=== PATIENT | female | born 1945 | race Caucasian/White ===

== ENCOUNTER 2016-09-15 16:16 | Emergency (ER) | payer OTHER ==
--- NOTE | 2016-09-15 16:52 | PROVIDER DOCUMENTATION ---
HPI-Head Injury - General Chief Complaint: Fall Stated Complaint: FALL Time Seen by Provider: 09/15/16 16:36 Source: patient Allergies/Adverse Reactions: Patient Allergies Allergy/AdvReac Type Severity Reaction Status Date / Time morphine Allergy Severe blind Verified 09/15/16 16:48 buprenorphine HCl * Allergy Intermediate VOMITING Verified 09/15/16 16:48 [From Buprenex] codeine [Codeine] Allergy Intermediate ITCHING Verified 09/15/16 16:48 hydrocodone bitartrate * Allergy Intermediate ITCHING Verified 09/15/16 16:48 [From Lortab] acetaminophen Allergy Mild ITCHING Verified 09/15/16 16:48 [From Lorcet (propoxyphene)] ciprofloxacin [From Cipro] Allergy Mild VOMITING Verified 09/15/16 16:48 ciprofloxacin HCl * Allergy Mild VOMITING Verified 09/15/16 16:48 [From Cipro] metronidazole Allergy Mild vomitng Verified 09/15/16 16:48 propoxyphene HCl * Allergy Mild ITCHING Verified 09/15/16 16:48 [From Lorcet (propoxyphene)] clonazepam Allergy ITCHING Verified 09/15/16 16:48 Home Medications: Home Medication List Medication Instructions Recorded Confirmed Last Taken Type Paroxetine [Paxil] 40 mg PO DAILY 04/15/12 09/15/16 09/14/16 12:00 History Pantoprazole [Protonix] 40 mg PO DAILY@0700 12/01/12 09/15/16 1 Day Ago History Iron,Carbonyl/Vit C/Vit B12/FA 1 tab PO DAILY 07/25/15 09/15/16 1 Day Ago History [Iron 100 Plus Tablet] Lactulose 30 ml PO BID #30 udc 02/13/16 09/15/16 09/14/16 19:00 Rx Furosemide [Lasix] 40 mg PO DAILY 04/14/16 09/15/16 Unknown History Ketorolac [Toradol] 10 mg PO TID PRN PRN 04/14/16 09/15/16 Unknown History Nadolol 20 mg PO DAILY 04/14/16 09/15/16 Unknown History Ondansetron HCl [Zofran] 4 mg PO Q6H PRN PRN 04/14/16 09/15/16 Unknown History Spironolactone [Aldactone] 100 mg PO DAILY 09/09/15/16 09/15/16 12:00 History Tramadol HCl [Ultram] 1 - 2 tab PO Q6H PRN PRN 04/14/16 09/15/16 09/15/16 12:00 History Tramadol [Ultram] 50 mg PO Q8HR #20 tablet 09/15/16 Unknown Rx - History of Present Illness-Head Injury Nature of Presenting Problem: 71 yo WF fell/tripped falling in the street striking her nose and chin. She has some neck and chest pain now. Other injuries associated with incident:: reports: head, neck, mouth, chest Onset/Duration: reports: 1-3 hours ago Timing: reports: improving Method of Injury: reports: fell Any recent trauma/injury?: reports: none Loss of Consciousness: no loss of consciousness Modifying Factors: improves with: nothing Injury Associated Symptoms: reports: back/neck pain, chest pain Locality of Occurance: Home Similar Symptoms Previously?: Yes Recently seen or treated by another doctor?: No Review of Systems - Adult - REVIEW OF SYSTEMS - ADULT Constitutional: reports: no symptoms reported Eyes: reports: no symptoms reported. denies: blurred vision, double vision Ears, Nose, Mouth & Throat: reports: no symptoms reported, mouth/dental pain ( burning, after fall copious blood in mouth but that is now clear) Cardiovascular: reports: no symptoms reported Respiratory: reports: no symptoms reported Gastrointestinal: reports: no symptoms reported Genitourinary: reports: no symptoms reported Musculoskeletal: reports: no symptoms reported Integumentary: reports: no symptoms reported Neurological: reports: no symptoms reported Psychiatric: reports: no symptoms reported Endocrine: reports: no symptoms reported Hematologic/Lymphatic: reports: no symptoms reported Allergic/Immunologic: reports: no symptoms reported All Other Systems: Reviewed and Negative Past History - Adult - PAST MEDICAL HISTORY-ADULT Review of Records: reports: Old Records Reviewed, Nursing Assessment Review, Medications Reviewed, Social history reviewed & non-contributory. Major Childhood Illnesses: reports: denies history Cardiovascular: reports: HTN Gastrointestinal: reports: GERD, liver disease (cirrhosis), other (esophgeal varices) Genitourinary: reports: other (IGA) Musculoskeletal: reports: arthritis, fibromyalgia Neurological: reports: denies history Psychiatric: reports: denies history Endocrine/Immune: reports: denies history - PRIOR SURGERIES/PROCEDURES Surgical/Procedure History: reports: cholecystectomy, hysterectomy, BTL, orthopedic (extremity) - IMMUNIZATION STATUS Childhood Immunizations: See Nurse Assessment Flu Vaccine: See Nurse Assessment - FAMILY HISTORY Family History: reviewed, not pertinent - SOCIAL HISTORY Smoking: non-smoker Substance Use: none/never Alcohol Use Frequency: never Living Situation: alone Physical Exam- Neurological - Physical Exam-Neuro Initial Vital Signs Reviewed: Yes General Appearance: appears well, alert, no apparent distress Eye Exam: bilateral eye: PERRL, EOMI HENMT: normocephalic/atraumatic, moist mucous membranes, normal ENT inspection, other (I do not see a laceration in lower gums or lips) Head Injury: ecchymosis (chin) Neck: full range of motion, normal inspection, tender midline (C7) Respiratory: lungs clear, normal breath sounds, no pleuratic chest pain, no respiratory distress, no accessory muscle use Cardiovascular: normal peripheral pulses, regular rate, rhythm, no edema Abdominal Exam: non tender, soft Extremity: non-tender, normal inspection, no pedal edema, no calf tenderness shipping agent Exam: normal hearing, normal speech, PERRL Coordination/Gait: normal finger to nose Motor/Sensory: no motor deficit, no sensory deficit Neurologic: shipping agent II-XII nml as tested Integumentary: ecchymosis (bruise on chin, small abrasions on R 4,5 knuckles) Psych/Mental Status: normal mood/affect, normal thought content, normal thought process, oriented x 3 - Glascow Coma Scale Total Glascow Score: 15 Progress - CT/MRI 1 CT Study: Cervical Spine Impression: Normal MRI Study: Head Impression: Normal Departure - Departure Time of Disposition Order: 17:38 DIAGNOSIS: Fall from ground level Contusion of chin Qualifiers: Encounter type: initial encounter Qualified Code(s): S00.83XA - Contusion of other part of head, initial encounter Contusion, nose Qualifiers: Encounter type: initial encounter Qualified Code(s): S00.33XA - Contusion of nose, initial encounter Disposition: HOME 01 Certified Medical Emergency: Urgent Condition: Stable Additional Instructions: See PCP about lift chair. Must use walker at all times Prescriptions: Tramadol [Ultram] 50 mg PO Q8HR #20 tablet
[2016-09-15 17:54] VITALS: BP 126/54
[2016-09-15] MEDS ORDERED: NEOSPORIN OINTMENT PACKET ONE (18:00)
--- NOTE | 2016-09-15 18:16 | Diag Imaging Result Document ---
PROCEDURE NAME: HEAD/C-SPINE W/O CONTRAST - 09/15/2016 CT OF THE HEAD WITHOUT CONTRAST: FINDINGS: There is mild generalized cerebral atrophy. There is subcortical white matter lucency, particularly in the right parietal lobe. This was also apparently present on 04/14/2016. There are calcifications in the internal carotid arteries bilaterally. There is no evidence of acute bony disease. The visualized paranasal sinuses are clear. IMPRESSION: Chronic microvascular changes and atrophy. No evidence of acute disease. CT OF THE CERVICAL SPINE: FINDINGS: There is no evidence of acute fracture or subluxation. No prevertebral soft tissue swelling is present. There is an ossified calcification present posterior to the spinous process of C4. This is possibly due to previous trauma. There is narrowing of the C6-7 disc space with mild osteophyte formation posteriorly. IMPRESSION: Degenerative and chronic posttraumatic changes. No evidence of acute disease.
--- NOTE | 2016-09-16 09:23 | Diag Imaging Result Document ---
PROCEDURE NAME: CHEST-2 VIEWS - 09/15/2016 TWO VIEWS OF THE CHEST: FINDINGS: There is some atelectasis in the left costophrenic angle. Otherwise, the lungs are clear and the heart and pulmonary vascularity are within normal limits. IMPRESSION: Minimal atelectasis.
== END 2016-09-15 18:04 | disposition home or self-care (01) ==
LOC: ED 16:16
DX: S00.83XA Contusion of other part of head, initial encounter (principal); S00.33XA Contusion of nose, initial encounter; S60.414A Abrasion of right ring finger, initial encounter; S60.416A Abrasion of right little finger, initial encounter; R07.9 Chest pain, unspecified; M54.2 Cervicalgia; I10 Essential (primary) hypertension; K21.9 Gastro-esophageal reflux disease without esophagitis; Z79.899 Other long term (current) drug therapy; K74.60 Unspecified cirrhosis of liver; I85.00 Esophageal varices without bleeding; M19.90 Unspecified osteoarthritis, unspecified site; M79.7 Fibromyalgia; W01.0XXA Fall on same level from slipping, tripping and stumbling without subsequent striking against object, initial encounter
CPT/HCPCS: 70450; 71020; 72125

== ENCOUNTER 2018-12-01 09:48 | Inpatient (IN) ==
--- NOTE | 2018-12-01 10:25 | Diag Imaging Result Doc PS360 ---
EXAM: CHEST-1 VIEW INDICATION: POSSIBLE SEPSIS TECHNIQUE: One view COMPARISON: 11/22/2018 FINDINGS: Inspiration is suboptimal. There is minimal subsegmental atelectasis at the right lung base. No discrete airspace consolidation is appreciated. The lungs are grossly clear. There is no discrete pleural fluid collection or pneumothorax. The cardiomediastinal silhouette and central vasculature are grossly unremarkable. IMPRESSION: Mild bibasilar subsegmental atelectasis. No definite acute pathology, otherwise, by plain radiograph. Electronically signed by Td Garcia 12/01/2018 10:23 AM
[2018-12-01 10:43] LABS: INR 1.81; PROTIME 22.3 Seconds (11.0-16.0)
[2018-12-01 10:44] LABS: PTT 43.4 Seconds (22.3-41.8)
[2018-12-01 10:49] LABS: BASO# 0.04 X1000 (0.0-0.2); BASO% 0.4 % (0.0-0.8); EOS# 0.07 X1000 (0.0-0.7); EOS% 0.7 % (0.0-10.0); HEMATOCRIT 32.5 % (37.0-47.0); HEMOGLOBIN 10.9 g/dL (12.0-16.0); IMM GRAN# 0.03 X1000 (0.0-0.04); IMM GRAN% 0.3 % (0.0-0.5); LYMPH# 1.37 X1000 (1.2-3.4); LYMPH% 14.4 % (20.5-51.1); MCH 32.2 PG (27-31); MCHC 33.5 g/dL (33-37); MCV 96.2 FL (81-99); MONO# 1.93 X1000 (0.11-0.59); MONO% 20.3 % (1.7-9.3); MPV 10.8 FL (7.4-10.4); NEUT# 6.07 X1000 (1.4-6.5); NEUT% 63.9 % (42.2-75.2); PLT 173 X1000 (130-400); RBC 3.38 XMIL (4.2-5.4); RDW 15.5 % (11.5-14.5); WBC 9.51 X1000 (4.8-10.8)
[2018-12-01 10:57] LABS: ALB/GLOB RATIO 0.6; ALBUMIN 2.6 g/dL (3.5-5.0); CALCIUM 8.5 mg/dL (8.8-10.2); POTASSIUM 3.6 mmol/L (3.5-5.1); TOTAL BILIRUBIN 2.49 mg/dL (0.20-1.00); TOTAL PROTEIN 6.9 g/dL (6.3-8.3)
[2018-12-01 11:44] LABS: URINE SOURCE CATH
[2018-12-01 11:52] LABS: BILIRUBIN URINE NEGATIVE (NEGATIVE); BLOOD URINE NEGATIVE (NEGATIVE); COLOR YELLOW; GLUCOSE URINE NEGATIVE (NEGATIVE); KETONE URINE NEGATIVE (NEGATIVE); LEUKOCYTES URINE NEGATIVE (NEGATIVE); NITRITE URINE NEGATIVE (NEGATIVE); PH URINE 5.5; PROTEIN URINE NEGATIVE (NEGATIVE); SP GRAVITY URINE 1.013; TURBIDITY URINE CLEAR (CLEAR); UROBILINOGEN URINE 6 mg/dL (NORMAL)
[2018-12-01 11:54] LABS: UR EPITHELIAL CELLS <10 /HPF (<10); URINE BACTERIA NEGATIVE /HPF; URINE RBC <10 /HPF (<10); URINE WBC <10 /HPF (<10)
[2018-12-01 12:11] LABS: URINE CASTS NONE SEEN
[2018-12-01] MEDS ORDERED: XYLOCAINE-MPF 1% INJ ONE ×2 (13:58→16:35)
[2018-12-01 16:10] LABS: INR 1.73; PROTIME 21.5 Seconds (11.0-16.0)
[2018-12-01] MEDS ORDERED: ZOSYN 3.375 GM in NS 50 ML IV ONE (17:27)
--- NOTE | 2018-12-01 18:01 | PROVIDER DOCUMENTATION ---
This chart was entered by Blanca Salas Scribe, acting as scribe for Kevon Ortez DO. HPI-Abdominal Pain/GI Problem - General Chief Complaint: Post Op Complaint Stated Complaint: RT SIDE PAIN Time Seen by Provider: 12/01/18 09:56 Source: patient Allergies/Adverse Reactions: Patient Allergies Allergy/AdvReac Type Severity Reaction Status Date / Time morphine Allergy Severe blind Verified 11/22/18 17:02 buprenorphine HCl * Allergy Intermediate VOMITING Verified 11/22/18 17:02 [From Buprenex] codeine [Codeine] Allergy Intermediate ITCHING Verified 11/22/18 17:02 hydrocodone bitartrate * Allergy Intermediate ITCHING Verified 11/22/18 17:02 [From Lortab] ciprofloxacin [From Cipro] Allergy Mild VOMITING Verified 11/22/18 17:02 ciprofloxacin HCl * Allergy Mild VOMITING Verified 11/22/18 17:02 [From Cipro] metronidazole Allergy Mild vomitng Verified 11/22/18 17:02 propoxyphene HCl * Allergy Mild ITCHING Verified 11/22/18 17:02 [From Lorcet (propoxyphene)] clonazepam Allergy ITCHING Verified 11/22/18 17:02 Home Medications: Home Medication List Medication Instructions Recorded Confirmed Last Taken Type Furosemide [Lasix] 40 mg PO DAILY 04/14/16 11/22/18 11/22/18 History BENAZEpril [Lotensin] 20 mg PO DAILY 12/11/16 11/22/18 11/21/18 History Hydrochlorothiazide 25 mg PO DAILY 12/11/16 11/22/18 11/22/18 History Pantoprazole [Protonix] 40 mg PO DAILY@0700 12/11/16 11/22/18 11/22/18 History Clonazepam 1 tab PO PRN PRN 11/22/18 11/22/18 Unknown History Paroxetine HCl 1 tab PO DAILY 11/22/18 11/22/18 11/22/18 History - History of Present Illness-ABD Nature of Presenting Problems: 73 y/o female presents to ED with SOB and RUQ onset 9 days ago. Pt reports she had paracentesis in ED 9 days ago. Pt is alert and oriented. Abdominal Pain Onset Location: reports: RUQ Pain Radiation: reports: no radiation Quality of Pain: reports: aching Severity in ED: reports: mild Onset/Duration: reports: other (9 days ago) Timing: reports: still present Activities at Onset: reports: none Exposure to sick contacts?: No Modifying Factors: improves with: nothing Associated Symptoms: reports: shortness of breath, other (RUQ pain) Last BM: unsure Dark Stools Present?: reports: none noticed Rectal Bleeding: reports: none Rectal Pain: reports: none Similar Symptoms Previously?: No Recently seen or treated by another doctor?: Yes (ED 9 days ago for paracentesis) Review of Systems - Adult - REVIEW OF SYSTEMS - ADULT Constitutional: denies: chills, fever Eyes: reports: no symptoms reported Ears, Nose, Mouth & Throat: reports: no symptoms reported Cardiovascular: denies: chest pain, palpitations Respiratory: reports: shortness of breath. denies: cough Gastrointestinal: reports: abdominal pain. denies: diarrhea, nausea, vomiting Genitourinary: reports: no symptoms reported Musculoskeletal: denies: back pain, joint pain Integumentary: reports: no symptoms reported Neurological: denies: dizziness/vertigo, seizure Psychiatric: reports: no symptoms reported Endocrine: reports: no symptoms reported Hematologic/Lymphatic: reports: no symptoms reported Allergic/Immunologic: reports: no symptoms reported All Other Systems: Reviewed and Negative Past History - Adult - PAST MEDICAL HISTORY-ADULT Review of Records: reports: Old Records Reviewed, Nursing Assessment Review, Medications Reviewed Major Childhood Illnesses: reports: denies history Cardiovascular: reports: HTN Respiratory: reports: denies history Gastrointestinal: reports: diverticulosis, GERD, liver disease (cirrhosis), other (esophgeal varices) Obstetrical/Gynecological: reports: denies history Genitourinary: reports: kidney disease, other (IGA) Musculoskeletal: reports: arthritis, fibromyalgia Neurological: reports: denies history Psychiatric: reports: denies history Endocrine/Immune: reports: denies history Other Conditions: reports: denies history - PRIOR SURGERIES/PROCEDURES Surgical/Procedure History: reports: appendectomy, cholecystectomy, hysterectomy , BTL, orthopedic (extremity) (L shoulder), back/neck (back x2), other (lithrotripsy) - IMMUNIZATION STATUS Childhood Immunizations: See Nurse Assessment Flu Vaccine: See Nurse Assessment - FAMILY HISTORY Family History: reviewed, not pertinent - SOCIAL HISTORY Smoking: quit greater than 1 year Substance Use: none/never Alcohol Use Frequency: never Living Situation: family Physical Exam-General - PHYSICAL EXAM-ADULT Initial Vital Signs Reviewed: Yes - CONSTITUTIONAL General Appearance: appears well, alert, no apparent distress - EYES Eyes: PERRL/EOMI, pink conjunctivae - HEAD, EARS, NOSE, MOUTH & THROAT HENMT: normocephalic/atraumatic, moist mucous membranes, normal ENT inspection, other (dentures) - NECK Neck: non-tender, full range of motion - RESPIRATORY Respiratory: lungs clear, normal breath sounds, other (chest wall tenderness at L sternal border). negative: chest non-tender - CARDIOVASCULAR Cardiovascular: normal peripheral pulses, regular rate, rhythm - GASTROINTESTINAL (ABDOMEN) Abdominal Exam: normal bowel sounds, soft, tenderness (mild diffuse tenderness), other (scar to RUQ) - MUSCULOSKELETAL Back Exam: normal inspection, no CVA tenderness Extremity: normal range of motion, non-tender, normal gait - SKIN Integumentary: normal color, warm/dry - NEUROLOGIC Neurologic: grossly normal - PSYCHIATRIC Psych/Mental Status: normal mood/affect, normal thought content, normal thought process Progress - PLAN OF CARE/RESULTS Progress/Plan/Lab Results: Vital Signs - 8 hr 12/01/18 09:50 Temperature 98.3 F Pulse Rate 95 H Respiratory Rate 22 Blood Pressure 106/66 O2 Sat by Pulse Oximetry 98 Orders Category Date Time Status Cardiac Monitoring DIRECTED Care 12/01/18 10:00 Active IV Insertion ORDERED Care 12/01/18 10:00 Active Notify MD of + Sepsis Screen NOW Care 12/01/18 10:00 Active Notify Physician As Ordered Care 12/01/18 10:00 Active CHEST-1 VIEW [RAD] Stat Exams 12/01/18 10:00 Ordered BLOOD CULTURE [BLDCUL] Stat Lab 12/01/18 10:00 Uncollected CBC WITH DIFF [HEME] Stat Lab 12/01/18 10:00 Uncollected CK PROFILE [SP CHEM] Stat Lab 12/01/18 10:00 Uncollected COMPREHENSIVE METABOLIC PANEL [CHEM] Stat Lab 12/01/18 10:00 Uncollected LACTATE, PLASMA [CHEM] Q3H Lab 12/01/18 10:00 Uncollected LACTATE, PLASMA [CHEM] Q3H Lab 12/01/18 13:00 Uncollected LACTATE, PLASMA [CHEM] Q3H Lab 12/01/18 16:00 Uncollected PROTIME WITH INR [COAG] Stat Lab 12/01/18 10:00 Uncollected PTT [COAG] Stat Lab 12/01/18 10:00 Uncollected TROPONIN T Stat Lab 12/01/18 10:00 Uncollected URINALYSIS W/POSS RFLX CULT [URINALYSIS] Stat Lab 12/01/18 10:00 Uncollected Oxygen Device Stat Oth 12/01/18 10:00 Active Laboratory Tests 12/01/18 12/01/18 12/01/18 10:21 10:21 10:21 WBC 9.51 RBC 3.38 L Hgb 10.9 L Hct 32.5 L MCV 96.2 MCH 32.2 H MCHC 33.5 RDW Std Deviation 15.5 H Plt Count 173 MPV 10.8 H Immature Gran % (Auto) 0.3 Neut % (Auto) 63.9 Lymph % (Auto) 14.4 L [place] % (Auto) 20.3 H Eos % (Auto) 0.7 Baso % (Auto) 0.4 Immature Gran # (Auto) 0.03 Neut # (Auto) 6.07 Lymph # (Auto) 1.37 [place] # (Auto) 1.93 H Eos # (Auto) 0.07 Baso # (Auto) 0.04 PT 22.3 H INR 1.81 PTT (Actin FS) 43.4 H Sodium 138 Potassium 3.6 Chloride 99 Carbon Dioxide 28 Anion Gap 11 BUN 21 Creatinine 1.0 H Estimated GFR/1.73 m2 54 BUN/Creatinine Ratio 21 Glucose 152 H Calculated Osmolality 282 Calcium 8.5 L Total Bilirubin 2.49 H AST 52 H ALT 23 Alkaline Phosphatase 118 H Creatine Kinase 94 Troponin T Total Protein 6.9 Albumin 2.6 L Globulin 4.3 Albumin/Globulin Ratio 0.6 Plasma Lactate 12/01/18 12/01/18 10:21 10:21 WBC RBC Hgb Hct MCV MCH MCHC RDW Std Deviation Plt Count MPV Immature Gran % (Auto) Neut % (Auto) Lymph % (Auto) [place] % (Auto) Eos % (Auto) Baso % (Auto) Immature Gran # (Auto) Neut # (Auto) Lymph # (Auto) [place] # (Auto) Eos # (Auto) Baso # (Auto) PT INR PTT (Actin FS) Sodium Potassium Chloride Carbon Dioxide Anion Gap BUN Creatinine Estimated GFR/1.73 m2 BUN/Creatinine Ratio Glucose Calculated Osmolality Calcium Total Bilirubin AST ALT Alkaline Phosphatase Creatine Kinase Troponin T < 0.010 Total Protein Albumin Globulin Albumin/Globulin Ratio Plasma Lactate 3.2 H Result Diagrams: 12/01/18 10:21 12/01/18 10:21 - EKG 1 Time of EKG reading by physician:: 11:57 EKG Read and Signed by:: Kevon Ortez EKG Interpretation (*Must complete 3 of following elements*): Normal Rate: 79 Rhythm: NSR [place]: normal QRS: normal TN Interval: normal ST Wave: normal - XRAY 1 XRAY Study: Chest Impression: Abnormal (FINDINGS: Inspiration is suboptimal. There is minimal subsegmental atelectasis at the right lung base. No discrete airspace consolidation is appreciated. The lungs are grossly clear. There is no discrete pleural fluid collection or pneumothorax. The cardiomediastinal silhouette and central vasculature are grossly unremarkable. IMPRESSION: Mild bibasilar subsegmental atelectasis. No definite acute pathology, otherwise, by plain radiograph. Electronically signed by Td Garcia 12/01/2018 10:23 AM) - CONSULTS/PCP/HOSPITALIST Notification #1 *Consult/PCP/Hospitalist*: Dr. Green for Dr. Goss Time Discussed: 13:27 Reason/Comments: Ascites Consult Disposition: Admit (Dr. Green requests zosyn be started.) Procedures - ADDITIONAL PROCEDURES Additional Procedure: Paracentesis Consent Form Signed if Applicable?: Yes Time-Out Verification Completed?: Yes Site Prep: Kit Utilized, [facility] Anesthetic: 1%, Lidocaine/Xylocaine Volume of Anesthetic (ml's): 20 (10 cc for attempt 1/2; 10 cc for attempt 3 = 20 cc total) Description of Procedure (Other): Dr. Ortez oversaw Dr. Valadez perform paracentesis assisted by ultrasound. Dr. Valadez injected 10 cc of 1% plain lidocaine. Paracentesis was attempted twice with minimal fluid drained. Dr. Valadez injected 10 cc of 1% plain lidocaine again while another thoracentesis tray was found. Successful third paracentesis performed by Dr. Jayy Sorto with 4L of fluid drained and collected. Departure - Departure Date of Disposition Decision: 12/01/18 Time of Disposition Decision: 13:18 DIAGNOSIS: Ascites Qualifiers: Ascites type: other type Qualified Code(s): R18.8 - Other ascites Disposition: ADMITTED INPATIENT 09 Certified Medical Emergency: Emergent Condition: Stable Additional Freetext Instructions: ED Follow Up Instructions: You have been treated by a care provider in the Emergency Department. These instructions are being provided to you so you can have an understanding of how to care for yourself upon discharge. Upon discharge from the Emergency Department, you are responsible for making arrangements for follow-up care by a physician of your choice. Take all prescribed medications as directed. Return to the Emergency Department immediately for any new or worsening symptoms. You may call the Physician Referral phone number at [phone] to obtain a list of Physicians who are taking new patients. Referrals and Follow-Ups: Ruben Goss MD [Primary Care Provider] - Discharge Education: Paracentesis, Care After, Ascites - Critical Care Note This patient required my direct & personal management of CC.: Yes Total Time (mins): 57 Critical Care Statement: This patient required my direct personal management to treat or rule out processes, the absence of which, could potentiallly result in sudden, clinically significant life or limb threatening deterioration. Attestation - Physician/ AMBER Attestation Patient care was provided by Advanced Practice Provider:: No The physician spent face to face time with patient:: Yes Advanced Practice Provider documentation review:: Supervising physician onsite and consulted in the evaluation and care of this patient. The physician did have a face to face encounter with the patient. This chart was documented by the indicated scribe, (Blanca Salas, Steve) and accurately reflects the services I performed and decisions made by , Kevon Ortez DO, as attested by the provider's signature.
[2018-12-01] MEDS ORDERED: NS 1,000 ML IV ONE (18:43)
--- NOTE | 2018-12-01 18:51 | HISTORY AND PHYSICAL ---
CHIEF COMPLAINT: Abdominal pain. HISTORY OF PRESENT ILLNESS: Ms. Fernandez is a 73-year-old, female patient who came for significant abdominal pain more so on the right side going on for 5 days. The patient also had some nausea, known case of cirrhosis of the liver complicated by ascites. The patient denied any high-grade fever. She did have some chills. The patient vomited a few days ago but not recently. She denied any dysuria or hematuria. No diarrhea, blood, or mucus in the stool. The patient does have significant ascites. She had ascites TIPS done a few days ago. At that time, patient had about 4.5 L of ascitic fluid that was drained. The patient was recommended to have follow-up with latex ribbon machine operator. The patient seems to be noncompliant. Today again patient was complaining of abdominal pain, abdominal fullness, and distention. The patient had a CT pleural tap done today by ER physician, and about 4.4 L of fluid was drained. It was clear humberto colored fluid. The patient's abdominal distention and pain improved. I reviewed her ER records, and patient seems to have frequent drainage of her ascitic fluid. No nausea. She denied any typical chest pain or palpitations. She does get short of breath with exertion. No headache. Denied any bleeding in the stool. No hematemesis or melena. No further history available at this time. ALLERGIES: Morphine, ibuprofen, codeine, hydrocodone, Cipro, metronidazole, propoxyphene, Klonopin. HOME MEDICATIONS: Include Lasix, Lotensin, hydrochlorothiazide, Protonix, Klonopin, and Paxil. PAST MEDICAL HISTORY: Significant for cirrhosis of the liver complicated by ascites. Esophageal varices. IgA nephropathy. Fibromyalgia. PAST SURGICAL HISTORY: Appendectomy, cholecystectomy, hysterectomy, bilateral tubal ligation. SOCIAL HISTORY: Single. Denied alcohol or substance abuse. REVIEW OF SYSTEMS: As per HPI. Otherwise unobtainable. FAMILY HISTORY: Noncontributory. REVIEW OF SYSTEMS: As per HPI. PHYSICAL EXAMINATION: GENERAL: Elderly white female patient in mild distress. VITAL SIGNS: Blood pressure 135/61, pulse 77, respirations 18. Temperature. 98.5. SKIN: Normal turgor. No rash or petechiae. HEENT: Head atraumatic, normocephalic. [place] conjunctivae. Anicteric sclerae. Extraocular muscle movement normal. Fundus cannot be penetrated. Good oral hygiene. No tonsillopharyngeal congestion or exudate. Ears and nose benign. NECK: Supple. No JVD, thyromegaly, or lymphadenopathy. CHEST: Bibasilar crepitation. No rales. CARDIOVASCULAR: S1 and S2 heard. No gallop or thrill. ABDOMEN: Soft, globular. It was distended and tense initially. After ascites TIPS, soft and less tense. EXTREMITIES: No cyanosis, clubbing. Bilateral leg swelling. No acute DVT. RECTANGULAR TANK COOPER: Alert, awake, able to move all 4 limbs. LABORATORY DATA: Revealed hemoglobin 10.9, hematocrit 32.5, WBC count 9.51, platelet count 173,000. PT/INR 1.73, PTT 43.7. Electrolytes were fairly benign. Total bilirubin 2.49. AST 52, ALT 23, alkaline phosphatase 118. Ammonia level was 65. Plasma lactate was 3.8. Urinalysis results reviewed. Chest x-ray result noted. CONSIDERATION: Patient admitted with cirrhosis of the liver complicated by ascites status post ascites TIPS. We are concerned with subacute bacterial peritonitis. Fluid results are pending. Her other concern is patient lives by herself. We are concerned about her falling and hypotension at home. We decided to admit the patient for further care. I am going to give her albumin. The patient does have elevated ammonia level. We will treat her with lactulose. Other problems include: 1. Hypertension. 2. Gastritis. 3. Coagulopathy due to chronic liver disease. PLAN: Overall plan and prognosis discussed with the patient. She is in agreement. cc: MD TANNER Santillan
[2018-12-01 19:05] LABS: BODY FLUID SOURCE PERITONEAL FLUID
[2018-12-01 19:06] LABS: WBC BF 1198 /cumm
[2018-12-01 19:11] LABS: MONOS 15 %; POLYS 85 %
[2018-12-01 19:14] LABS: ALBUMIN BODY FLUID 0.5 g/dL; AMYLASE BODY FLUID 16 U/L; GLUCOSE BODY FLUID 149 mg/dL; LDH BODY FLUID 80 U/L
[2018-12-01] MEDS ORDERED: PROTONIX IV ONE (19:50)
[2018-12-01] MEDS ORDERED: ALBUMIN 25% IV ONE (19:50)
[2018-12-01] MEDS ORDERED: SODIUM CHLORIDE 0.9% INJ ONE (19:50)
[2018-12-01] MEDS: LACTULOSE PO SCH (21:26)
[2018-12-01] MEDS: ZOSYN 3.375 GM in NS 50 ML IV SCH (21:27)
[2018-12-01] MEDS ORDERED: KLONOPIN PO ONE (22:40)
[2018-12-02] MEDS: ZOSYN 3.375 GM in NS 50 ML IV SCH ×3 (05:24→14:47)
[2018-12-02] MEDS: LACTULOSE PO SCH ×2 (05:26→11:35)
[2018-12-02 06:38] LABS: BASO# 0.06 X1000 (0.0-0.2); BASO% 0.8 % (0.0-0.8); EOS# 0.07 X1000 (0.0-0.7); EOS% 0.9 % (0.0-10.0); IMM GRAN# 0.02 X1000 (0.0-0.04); IMM GRAN% 0.3 % (0.0-0.5); LYMPH# 1.28 X1000 (1.2-3.4); LYMPH% 16.5 % (20.5-51.1); MCHC 32.3 g/dL (33-37); MCV 102.3 FL (81-99); MONO# 1.61 X1000 (0.11-0.59); MONO% 20.7 % (1.7-9.3); MPV 10.7 FL (7.4-10.4); NEUT# 4.72 X1000 (1.4-6.5); NEUT% 60.8 % (42.2-75.2); PLT 116 X1000 (130-400); RBC 3.03 XMIL (4.2-5.4); RDW 15.7 % (11.5-14.5); WBC 7.76 X1000 (4.8-10.8)
[2018-12-02 06:57] LABS: AGAP 13; ALB/GLOB RATIO 0.8; ALBUMIN 2.5 g/dL (3.5-5.0); ALKALINE PHOSPHATASE 91 U/L (32-104); BUN 19 mg/dL (8-22); CALCIUM 7.9 mg/dL (8.8-10.2); CHLORIDE 103 mmol/L (98-107); COSMO 285; CREATININE 0.8 mg/dL (0.5-0.9); ESTIMATED GFR > 60; GLUCOSE 89 mg/dL (70-104); GOT 46 U/L (10-30); GPT 19 U/L (10-36); POTASSIUM 3.5 mmol/L (3.5-5.1); SODIUM 142 mmol/L (136-145); TCO2 26 mmol/L (25-35); TOTAL BILIRUBIN 2.23 mg/dL (0.20-1.00); TOTAL PROTEIN 5.6 g/dL (6.3-8.3)
[2018-12-02 07:08] LABS: BANDS 2 % (0-1); LYMPHS 24 % (21-51); SEGS 74 % (42-75)
--- NOTE | 2018-12-02 07:42 | EKG Report ---
Test Performed on : 12/01/2018 11:57:56 AM Test Reason : ED. NO EKG ORDER FOR MUSE Blood Pressure : / mmHG Vent. Rate : 079 BPM Atrial Rate : 079 BPM P-R Int : 128 ms QRS Dur : 084 ms QT Int : 422 ms P-R-T Axes : 070 017 050 degrees QTc Int : 483 ms Normal sinus rhythm. Normal ECG When compared with ECG of 22-NOV-2018 18:41, (Unconfirmed) No significant change was found Unconfirmed Result
[2018-12-02 16:21] VITALS: BP 125/58
--- NOTE | 2018-12-02 19:29 | GASTROENTEROLOGY CONSULTATION ---
DATE: 12/02/2018 REASON FOR CONSULTATION: Ascites, cirrhosis of the liver. HISTORY OF PRESENT ILLNESS: This is a 73-year-old, female, well-known to our practice. We had last seen her in the office on 11/07/2018. At that time, she was complaining of increased abdominal swelling. She had also noticed some bruising on her body. At that time, she had denied abdominal pain. We had sent her for a paracentesis on 11/08/2018. She had 4 L of fluid removed. She then had to follow back to the emergency room on 11/22/2018 for increased abdominal swelling and had 4.5 L of fluid removed. She came into the emergency room this time with complaints of abdominal pain and nausea. She had denied fever. She has reported falling several days ago. She felt like she hit her right side and is reporting right-side abdominal pain. Patient is often noncompliant with her medications. She tends to hold her Xifaxan and also her lactulose. She has had increased abdominal distention and ascites despite diuretics. At her last office visit, she was taking 40 mg of Lasix and 100 mg of Aldactone. PAST MEDICAL HISTORY: Cirrhosis of the liver, ascites, history of esophageal varices, hypertension, chronic kidney disease, neuropathy, arthritis, history of vasculitis. PAST SURGICAL HISTORY: Back surgery x2. Colonoscopy, EGD for esophageal varices. Cholecystectomy, hysterectomy, shoulder surgery. ALLERGIES: Morphine caused blindness. Buprenex caused vomiting. Codeine, itching. Lortab, itching. Cipro vomiting. Lorcet itching. Clonazepam itching. HOME MEDICATIONS: Lotensin 20 mg daily. Bumex 1 mg daily. Keflex 500 mg every 6 hours. Temazepam 1 tablet as needed. Klonopin 0.5 mg twice a day. Hydrochlorothiazide 25 mg daily. Hydrocodone 10 twice a day. Lactulose 30 mL every 8 hours. Zofran 4 mg every 6 hours as needed. Protonix 40 mg daily. Paroxetine 1 tablet daily. Potassium 10 mEq daily. SOCIAL HISTORY: No reported alcohol use. She quit tobacco use in 1995. She has 3 children. FAMILY HISTORY: Stomach cancer in an uncle. Unknown cancer in cousins. IBS, aunt. GERD in her son. REVIEW OF SYSTEMS: Per history of present illness. PHYSICAL EXAMINATION: Vital Signs: Temperature 98.0, pulse 88, respirations 19, blood pressure 125/58. General: Patient is awake and alert. She is in no acute distress. She is sitting on the side of the bed. Her daughter is at the bedside. The daughter is usually unable to come to her outpatient office visit because of her work schedule. HEENT: Normocephalic atraumatic. Pupils equal, round, reactive to light. Sclerae nonicteric. Cardiovascular: Regular rate and rhythm. Respiratory: Lung sounds essentially clear. Abdomen: Some distention. Currently soft with tenderness in the right upper quadrant. Patient states she fell on the right side several days ago. She does have some bruising on her right leg but no noted bruising to abdomen. Extremities: With no current lower extremity edema noted. Neurologic: Cranial nerves 2-12 grossly intact. Currently patient is awake and alert. Oriented to person, place, and time. DIAGNOSTIC RESULTS: Laboratory: Hematology: WBC 7.76, hemoglobin 10.0, hematocrit 31.0, MCV 102.3, platelet 116. Chemistry: Sodium 142, potassium 3.5, chloride 103, CO2 of 26, BUN 19, creatinine 0.8, glucose 89, calcium 7.9, magnesium 1.4. Total bilirubin 2.23, AST 46, ALT 19, alkaline phosphatase 91. Ammonia on 12/01/2018 was 65. Total protein 5.6, albumin 2.5. Patient had 4 L of fluid by paracentesis in the emergency room. ASSESSMENT AND PLAN: 1. Cirrhosis of the liver. 2. Ascites that has become refractory to diuretics. 3. Abnormal ascitic fluid studies consistent with bacterial peritonitis. Continue antibiotics. We have discussed with her the options of a TIPS procedure to help with her increased ascites. She is most likely not a candidate for liver transplant. The patient is concerned about having to travel for other procedures due to her inability to have someone drive her. We will continue with her current management. I have discussed the importance of her taking her medications every day. Further plans will be made as needed. I have discussed this case with Dr. Tillman who has also seen the patient today. Thank you for this consultation. Dictated by JAMILA Subramanian for Bradley Tillman MD cc: JAMILA Parrish MD Allen J. Schmidt, MD MTDD
[2018-12-02] MEDS ORDERED: KEFLEX PO SCH (20:00)
--- NOTE | 2018-12-02 22:46 | DISCHARGE SUMMARY ---
ADMISSION DATE: 12/01/2018 DISCHARGE DATE: 12/02/2018 FINAL DIAGNOSES: 1. Contusion of her right side secondary to fall. 2. Contusion of her knees due to the fall. 3. Cirrhosis with ascites. 4. History of fatty liver disease. 5. History of depression. 6. History of anxiety. 7. Hypertension. DISCHARGE MEDICATIONS: Lasix is discontinued and she is placed on Bumex 1 mg q.a.m., also potassium chloride 10 mEq 1 q.a.m., also Keflex 500 mg q.i.d. (20) and lactulose 1 tablespoon t.i.d. This is the first recent reason [facility] admission for this 73-year-old white female with right abdominal pain. She was admitted by Dr. Green who was client application support specialist yesterday. Initial impression was hypertension, gastritis, ascites, fatty liver, coagulopathy due to chronic liver disease. INITIAL LABORATORY: Hemoglobin 10.9, hematocrit 32.5, white blood count 9500 with normal differential. Bilirubin was elevated at 2.23. AST was 46, ALT 19, total protein 5.6, albumin 2.5, ammonia 65, plasma lactate 2.9. HOSPITAL COURSE: 4 L of fluid was withdrawn from her abdomen by the emergency room physician last night. She has been feeling better today. Appetite is fairly good. Dr. Tillman has followed her from a GI standpoint. She had EGD last June which showed some portal hypertension findings, otherwise unremarkable. He has mentioned that she may need to go to [place] to have a port placed so that she can have frequent paracentesis. She is discharged home on the above medications to be seen back on Sunday for followup. She will be sent back to Dr. Tillman as needed. cc: MD Wolfgang Garcias MD
[2018-12-03] MEDS ORDERED: BUMEX PO SCH (09:00)
[2018-12-03] MEDS ORDERED: KLOR-CON PO SCH (09:00)
== END 2018-12-02 18:14 | disposition home or self-care (01) | DRG 432 ==
LOC: ED 09:48 → SUATTDRO 19:39 → 3N 19:39
PROVIDERS: ADMIT Emergency Medicine; ATTEND Family Medicine
CPT/HCPCS: 71010; 71045; 80053; 81001; 82042; 82140; 82150; 82550; 82945; 83605; 83615; 83735; 84484; 85025; 85610; 85730; 87040; 88112; 89051; 93005; 96365; 99285; A9270; C9113; J2543; J7030; P9047; S0164

== ENCOUNTER 2018-12-06 10:14 | Inpatient (IN) ==
[2018-12-06] MEDS ORDERED: PHENERGAN IV PRN (11:05)
[2018-12-06] MEDS ORDERED: SODIUM CHLORIDE 0.9% INJ PRN (11:05)
[2018-12-06] MEDS ORDERED: ROCEPHIN 1 GM in NS 50 ML IV SCH (11:15)
[2018-12-06 12:07] LABS: BASO# 0.03 X1000 (0.0-0.2); BASO% 0.3 % (0.0-0.8); EOS# 0.11 X1000 (0.0-0.7); EOS% 1.3 % (0.0-10.0); HEMATOCRIT 30.5 % (37.0-47.0); HEMOGLOBIN 10.2 g/dL (12.0-16.0); IMM GRAN# 0.03 X1000 (0.0-0.04); IMM GRAN% 0.3 % (0.0-0.5); LYMPH# 1.05 X1000 (1.2-3.4); LYMPH% 11.9 % (20.5-51.1); MCHC 33.4 g/dL (33-37); MCV 95.6 FL (81-99); MONO# 1.94 X1000 (0.11-0.59); MPV 10.3 FL (7.4-10.4); NEUT# 5.64 X1000 (1.4-6.5); NEUT% 64.2 % (42.2-75.2); PLT 142 X1000 (130-400); RBC 3.19 XMIL (4.2-5.4); RDW 15.3 % (11.5-14.5)
[2018-12-06 12:13] LABS: ALB/GLOB RATIO 0.7; ALBUMIN 2.6 g/dL (3.5-5.0); DIRECT BILIRUBIN 0.8 mg/dL (0.00-0.20); TOTAL BILIRUBIN 2.08 mg/dL (0.20-1.00); TOTAL PROTEIN 6.4 g/dL (6.3-8.3)
[2018-12-06] MEDS: NS 1,000 ML IV SCH ×2 (12:25→22:29)
[2018-12-06 12:26] LABS: ANISOCYTOSIS 1+; EOS 1 % (1-10); LYMPHS 14 % (21-51); MONO 18 % (1-9); SEGS 67 % (42-75)
--- NOTE | 2018-12-06 16:01 | HISTORY AND PHYSICAL ---
CHIEF COMPLAINT: Weakness and rectal bleeding. HISTORY OF PRESENT ILLNESS: The is the second fairly recent admission for this 73-year-old white female with a large amount of rectal and vaginal bleeding yesterday. She was instructed to go to the emergency room for evaluation after explaining how much blood she had lost. On search for the ER records, it was found that she left without being seen. She presented to the office this morning. She states that her bleeding stopped, but she was weak. Blood pressure lying down was 120/86, blood pressure sitting was 102/60. She felt dizzy when sitting up. Mucous membranes were pale. Discussion was made with the patient and decision made to put her in the hospital for transfusion and further evaluation. Apparently, she had some bleeding last year and required 4 units of blood. There is history of diverticulosis, but on colonoscopy about a year ago, no evidence of bleeding was seen. Also, she had EGD in June of last year revealing no active bleeding. There were signs of portal hypertension, and there is history of esophageal varices. She has had a banding procedure done in the past for esophageal varices. She has been followed by Dr. Primo HSAH. She has cirrhosis and has had paracentesis several times recently the last time being in the Emergency Room at the time of her last admission 12/01 when 4.5 L was removed. Records have been requested from her previous doctor, Dr. Graves, but have not been received. PAST SURGICAL HISTORY: Surgeries include cholecystectomy in 1973, tubal ligation in 1971, two back surgeries in 1985, 2 shoulder surgeries in 1983, and hysterectomy in 1988. CURRENT MEDICATIONS: 1. Klonopin 0.5 mg t.i.d. 2. Pantoprazole 40 mg 1 daily. 3. Bumex 1 mg daily. 4. Benazepril 20 mg daily. 5. Hydrochlorothiazide 25 mg daily. 6. Paxil 40 mg 1 daily. 7. Requip 1 mg at bedtime. ALLERGIES: Morphine, Buprenex, metronidazole, and Cipro. She was hospitalized overnight with abdominal pain on 12/01. At that time, ammonia level was elevated at 178. BUN was 24 and creatinine 1.4. Potassium was 3.4. PAST MEDICAL HISTORY: Cirrhosis for a couple of years. 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 She also gives a history of fibromyalgia. Her weight in the office was 175 and today 173. FAMILY HISTORY: Unremarkable. SOCIAL HISTORY: She is a and has a daughter in town who assists in her care. There is no history of alcohol usage. PHYSICAL EXAMINATION: VITAL SIGNS: Temperature 98.2 degrees, heart rate 84, respirations 18, and blood pressure 120/86. GENERAL: Patient is weak, elderly white female with mild to moderate distention of her abdomen. HEENT: Pupils equal, round, and reactive to light. Tympanic membranes without inflammation. Pharynx benign. NECK: Supple with no mass or lymphadenopathy. HEART: Regular in rate and rhythm with no murmur, rub or gallop. LUNGS: Clear with no rales or rhonchi. ABDOMEN: Soft with mild distention, but no mass. EXTREMITIES: No cyanosis, clubbing, or edema. RECTAL AND GENITALIA: Deferred. LABORATORY: Hemoglobin was 8.2. O2 saturation was 96%. IMPRESSION: Anemia secondary to acute GI blood loss, possible diverticular bleeding, cirrhosis, orthostatic hypotension, and recent cystitis. PLAN: Admit for further evaluation and treatment including transfusion, and GI consultation. cc: Ruben Goss MD
[2018-12-06 16:07] LABS: HEMATOCRIT 30.3 % (37.0-47.0)
[2018-12-06] MEDS ORDERED: LACTULOSE PO SCH (21:00)
--- NOTE | 2018-12-06 22:44 | GASTROENTEROLOGY CONSULTATION ---
DATE: 12/06/2018 PRIMARY PROOFER BLACK AND WHITE: Bradley Tillman MD. REASON FOR CONSULT: Rectal bleeding. HISTORY OF PRESENT ILLNESS: Ms. Aletha Fernandez is a 73-year-old woman with past medical history of decompensated cirrhosis secondary to fatty liver complicated by ascites, hepatic encephalopathy, esophageal varices, hypertension, chronic kidney disease, neuropathy, arthritis, history of vasculitis, who was recently discharged on 12/02 after presenting with worsening ascites status post paracentesis with 4 L removed in the emergency room. The patient reports that 2 days ago, she had noticed some bright red blood per rectum and per vagina upon standing that was running down her leg. She presented to her primary care doctor, Dr. Goss, this morning, complaining of rectal bleeding. However, she says she has not had any bleeding over the last 2 days. She denies any nausea, vomiting, fevers, chest pain, abdominal pain. She does report some mild worsening of her ascites. No confusion. She says that she often gets dizzy when she stands up, but that is not a new symptom for her. In the office, she reportedly had a hemoglobin of 8.0 and positive orthostatic vital signs. Therefore, she was admitted to the hospital for transfusion and workup for GI bleed. PAST MEDICAL HISTORY: As per HPI. PAST SURGICAL HISTORY: She has had back surgery x2, cholecystectomy, hysterectomy, shoulder surgery. MEDICATIONS: Home medications include Lotensin, Bumex, Keflex, temazepam, Klonopin, hydrochlorothiazide, hydrocodone, lactulose, Protonix, paroxetine, potassium. ALLERGIES: Morphine, Buprenex, codeine, Lortab, Cipro, Lorcet, clonazepam. SOCIAL HISTORY: Remote smoker. No alcohol or drug use. FAMILY HISTORY: Notable for brother with alcoholic cirrhosis, stomach cancer in an uncle, GERD in her son. REVIEW OF SYSTEMS: As per HPI. Otherwise, 12-point review of systems is negative. PHYSICAL EXAMINATION: Vital Signs: Temperature 98.3 degrees, heart rate 76, respiratory rate 16, blood pressure 141/64, O2 saturation 100% on room air. General: The patient is awake, alert, oriented x3. HEENT: Sclerae anicteric. Moist mucous membranes. Extraocular motor intact. Neck: Supple. No JVD. No lymphadenopathy. Cardiac: Regular rate and rhythm. No murmurs. Lungs: Clear to auscultation bilaterally. No wheezing. Abdomen: Distended with fluid waves. Nontender. Bowel sounds are present. Extremities: No clubbing, cyanosis, or edema. Neurologic: Nonfocal. No asterixis. LABORATORIES: White count of 8.8, hemoglobin is 10.2 from 10.0 on 12/02 when she was discharged, platelets of 142,000. No INR today. Total bilirubin is 2.08 from 2.23 previously. AST is 53, ALT is 21, alkaline phosphatase 100, total protein 6.4, albumin 2.6. Ammonia is 122. Her last paracentesis was notable for SBP on 12/01. ASSESSMENT AND PLAN: Ms Aletha Fernandez is a 73-year-old woman with history of decompensated cirrhosis secondary to fatty liver with notable ascites, history of encephalopathy and varices, who presents with subacute rectal bleeding. Her rectal exam today is notable for brown stool. Her hemoglobin is stable from 12/02. She does report having some vaginal bleeding as well. Nothing noted in her pad that she had on. No signs of vaginal bleeding from externally. She does have some mild worsening of her ascites. I suspect it is likely related to dietary noncompliance. While examining her, she had a bag of [employer] potato chips under her pillow. Her LFTs are stable. Platelets are stable. No INR checked today. Vital signs are stable. Orthostatic vital signs in a patient with cirrhosis are not very reliable, given that adrenergic response is not that great in these patients. The ammonia of 122 is not reliable for hepatic encephalopathy. Continue her home medications. She does not have any asterixis or signs of significant encephalopathy at this time, maybe grade 1. From a GI standpoint, she could be discharged to follow up with Dr. Tillman with ER precautions. Stressed the importance of a low-sodium diet. She may need to have a repeat paracentesis at some point, but not currently. She needs to stay on her diuretics. Recommendations discussed with Dr. Goss and the patient's nurse as well as the patient. Thank you for this consult. Please call with any questions. cc: Ruben Goss MD
[2018-12-07] MEDS: NS 1,000 ML IV SCH (04:53)
[2018-12-07 06:56] LABS: HEMATOCRIT 31.8 % (37.0-47.0); HEMOGLOBIN 10.5 g/dL (12.0-16.0)
[2018-12-07 10:23] LABS: URINE SOURCE CLEAN CATCH
[2018-12-07 10:26] LABS: BILIRUBIN URINE SMALL (NEGATIVE); BLOOD URINE NEGATIVE (NEGATIVE); COLOR YELLOW; GLUCOSE URINE NEGATIVE (NEGATIVE); KETONE URINE NEGATIVE (NEGATIVE); LEUKOCYTES URINE SMALL (NEGATIVE); NITRITE URINE NEGATIVE (NEGATIVE); PROTEIN URINE TRACE mg/dL (NEGATIVE); SP GRAVITY URINE 1.021; TURBIDITY URINE HAZY (CLEAR); UROBILINOGEN URINE 6 mg/dL (NORMAL)
[2018-12-07 10:30] LABS: UR EPITHELIAL CELLS >10 /HPF (<10); URINE BACTERIA NEGATIVE /HPF; URINE RBC <10 /HPF (<10)
[2018-12-07] MEDS ORDERED: NON-FORMULARY MED PO ONE (10:37)
[2018-12-07 10:45] LABS: URINE YEAST PRESENT
[2018-12-07 12:04] LABS: INR 1.73; PROTIME 21.5 Seconds (11.0-16.0)
[2018-12-07 12:59] VITALS: BP 143/66
--- NOTE | 2018-12-07 13:22 | Diag Imaging Result Doc PS360 ---
EXAM: US ABD PARACENTESIS W S/I 12/07/2018 HISTORY: ascites TECHNIQUE: Ultrasound-guided paracentesis COMMENT: The risks and benefits of the procedure including the possibility of bleeding, infection, reaction to lidocaine, or puncture of hollow viscus was discussed with the patient and she agreed to the procedure. Following sterile preparation of the skin anterolaterally on the right over the upper quadrant and administration of 1% lidocaine to the skin and deeper soft tissues, the paracentesis catheter was placed and subsequently 5 L of slightly reddish-orange turbid fluid was drained. This was sent to the laboratory in its entirety. The patient tolerated the procedure well and there are no immediate complications. IMPRESSION: Successful ultrasound-guided paracentesis. Electronically signed by Eddy Cesar 12/07/2018 1:20 PM
[2018-12-07] MEDS ORDERED: LASIX IV SCH (21:00)
--- NOTE | 2018-12-07 21:26 | PROGRESS NOTE ---
DATE: 12/07/2018 VITAL SIGNS: Temperature 98.6 degrees, heart rate 98, respirations 20, blood pressure 164/73, O2 saturation on room air 98%. LABORATORY: Hemoglobin 10.5, hematocrit 31.8. PLAN: The patient has had no further GI bleeding. Her ascites is worse this morning. Discussion was made with Dr. Mccoy who recommended IV Lasix and p.o. spironolactone. Paracentesis will be done if there is no improvement by tomorrow. Discussion was made yesterday concerning her orthostatic hypotension, and Dr. Mccoy felt that she should not be transfused since hematocrit was rechecked and found to be 30. He indicated that orthostasis would be common with hepatic disease. cc: Ruben Goss MD
[2018-12-08] MEDS ORDERED: ALDACTONE PO SCH (09:00)
--- NOTE | 2018-12-08 12:50 | DISCHARGE SUMMARY ---
ADMISSION DATE: 12/06/2018 DISCHARGE DATE: 12/07/2018 FINAL DIAGNOSES: 1. Rectal bleeding. 2. Anemia secondary to gastrointestinal blood loss. 3. Cirrhosis. 4. Liver failure. 5. Ascites. 6. Dyspepsia. 7. Hypertension. DISCHARGE MEDICATIONS: Usual medications at home including Bumex, benazepril, hydrochlorothiazide, Paxil, Klonopin, and Protonix. HISTORY: This is the second fairly recent admission for this 73-year-old, white female with ascites and liver failure, who presented with a 1-day history of lower GI bleeding, moderate. In the office, her hemoglobin was 8.2 and she had orthostatic hypotension with drop in blood pressure from 126/80 to 100/60. She was dizzy. She was admitted for further evaluation and treatment. INITIAL LABORATORY: Hospital hemoglobin was 10.2 and hematocrit 30.5. White blood count was 8800. Total bilirubin was 2.08, direct bilirubin 0.80, AST 53, ALT 21, alkaline phosphatase 100, ammonia 122, albumin 2.6, total protein 6.4. HOSPITAL COURSE: She had no additional bleeding. GI consultation was obtained. Initial plans were to transfuse her 1 or [address] Mccoy recommended that transfusion be held. Hematocrit was rechecked this morning and was 31.8. She had increasing ascites this morning and consultation was made with Dr. Cesar, radiologist. Paracentesis was done with removal of 5 L of straw-colored fluid. There was slight red tinge. Post paracentesis weight was 167.1 pounds. She is to follow up with Dr. Tillman next week in the office. She is discharged home on her usual medicines. cc: Ruben Goss MD
== END 2018-12-07 15:04 | disposition home or self-care (01) | DRG 812 ==
LOC: DIRADM 10:14 → 4N 10:47
PROVIDERS: ADMIT Family Medicine; ATTEND Family Medicine
CPT/HCPCS: 49083; 80076; 81001; 82140; 85014; 85018; 85025; 85610; 86850; 86900; 86901; 86920; 87088; A9270; J0696; J1940; J7030

== ENCOUNTER 2018-12-11 13:24 | Inpatient (IN) ==
[2018-12-11 13:53] LABS: RBC 3.58 XMIL (4.2-5.4); WBC 11.64 X1000 (4.8-10.8)
[2018-12-11 13:54] LABS: BASO# 0.03 X1000 (0.0-0.2); BASO% 0.3 % (0.0-0.8); EOS# 0.06 X1000 (0.0-0.7); EOS% 0.5 % (0.0-10.0); HEMATOCRIT 33.7 % (37.0-47.0); HEMOGLOBIN 11.5 g/dL (12.0-16.0); IMM GRAN# 0.03 X1000 (0.0-0.04); IMM GRAN% 0.3 % (0.0-0.5); LYMPH# 1.61 X1000 (1.2-3.4); LYMPH% 13.8 % (20.5-51.1); MCH 32.1 PG (27-31); MCHC 34.1 g/dL (33-37); MCV 94.1 FL (81-99); MONO# 1.67 X1000 (0.11-0.59); MONO% 14.3 % (1.7-9.3); MPV 10.6 FL (7.4-10.4); NEUT# 8.24 X1000 (1.4-6.5); NEUT% 70.8 % (42.2-75.2); PLT 188 X1000 (130-400); RDW 15.7 % (11.5-14.5)
--- NOTE | 2018-12-11 13:59 | Diag Imaging Result Doc PS360 ---
EXAM: CHEST-PORTABLE HISTORY: ams TECHNIQUE: Chest single view COMPARISON: 12/01/2018 FINDINGS: The lungs are well expanded. The heart is not enlarged. The vessels are not distended. There are no infiltrates. No effusion identified. IMPRESSION: Negative exam. Electronically signed by Arnie Lind 12/11/2018 1:57 PM
[2018-12-11 14:03] LABS: INR 1.62; PROTIME 20.5 Seconds (11.0-16.0)
[2018-12-11 14:04] LABS: PTT 42.1 Seconds (22.3-41.8)
[2018-12-11 14:30] LABS: CREATININE 1.6 mg/dL (0.5-0.9); POTASSIUM 4.2 mmol/L (3.5-5.1)
[2018-12-11 14:31] LABS: ALB/GLOB RATIO 0.6; ALBUMIN 2.6 g/dL (3.5-5.0); CALCIUM 8.2 mg/dL (8.8-10.2); TOTAL BILIRUBIN 2.49 mg/dL (0.20-1.00); TOTAL PROTEIN 6.6 g/dL (6.3-8.3)
[2018-12-11] MEDS ORDERED: LACTULOSE PO PRN (15:48)
[2018-12-11 15:49] LABS: URINE SOURCE CATH
[2018-12-11 15:58] LABS: BILIRUBIN URINE NEGATIVE (NEGATIVE); BLOOD URINE NEGATIVE (NEGATIVE); COLOR YELLOW; GLUCOSE URINE NEGATIVE (NEGATIVE); KETONE URINE NEGATIVE (NEGATIVE); LEUKOCYTES URINE NEGATIVE (NEGATIVE); NITRITE URINE NEGATIVE (NEGATIVE); PH URINE 5.5; PROTEIN URINE NEGATIVE (NEGATIVE); SP GRAVITY URINE 1.012; TURBIDITY URINE CLEAR (CLEAR); UR EPITHELIAL CELLS <10 /HPF (<10); URINE BACTERIA NEGATIVE /HPF; URINE RBC <10 /HPF (<10); URINE WBC <10 /HPF (<10); UROBILINOGEN URINE 2 mg/dL (NORMAL)
--- NOTE | 2018-12-11 16:20 | EKG Report ---
Test Performed on : 12/11/2018 1:38:51 PM Test Reason : AMS Blood Pressure : / mmHG Vent. Rate : 081 BPM Atrial Rate : 081 BPM P-R Int : 124 ms QRS Dur : 076 ms QT Int : 418 ms P-R-T Axes : 061 006 040 degrees QTc Int : 485 ms Normal sinus rhythm. Normal ECG When compared with ECG of 01-DEC-2018 11:57, (Unconfirmed) No significant change was found Unconfirmed Result
[2018-12-11] MEDS ORDERED: REQUIP PO PRN (16:45)
[2018-12-11] MEDS: NS 1,000 ML IV SCH (18:14)
[2018-12-11] MEDS: ULTRAM PO PRN (19:53)
--- NOTE | 2018-12-11 20:33 | HISTORY AND PHYSICAL ---
CHIEF COMPLAINT: Acute mental change. HISTORY OF PRESENT ILLNESS: This is one of several recent [facility] admissions for this 73- year-old white female with chronic liver failure, hepatic encephalopathy, increased ammonia level and ascites, who was in the hospital following an episode of GI bleeding. Hematocrit remained stable and bleeding stopped. Most likely source was diverticular bleeding. She was sent home a few days ago, and returned to the ER by ambulance when family realized she was more confused and not eating. Initial laboratory in the ER revealed hemoglobin 11.5, hematocrit 33.7, white blood count 11,600. Sodium 135, potassium 4.2, BUN 38, creatinine 1.6, total bilirubin 2.5, AST 47, ALT 20, alkaline phosphatase 110. Serum ammonia 119. Troponin T less than 0.01. Albumin 2.6, total protein 6.6. The patient was unable to indicate whether she had been taking her medication at home correctly. Prior to her last discharge Radiology did paracentesis, with removal of 5 L of fluid. She has had paracentesis on a regular basis over the past couple of weeks. PAST MEDICAL HISTORY: Several recent hospitalizations for liver failure-related complications. PAST SURGICAL HISTORY: Previous surgeries include cholecystectomy in 1973, tubal ligation in 1971, 2 back surgeries in 1985, 2 shoulder surgeries in 1983, and hysterectomy in 1988. MEDICATIONS: Protonix 40 mg 1 daily; Bumex 1 mg daily; benazepril 20 mg daily; hydrochlorothiazide 25 mg daily; Paxil 40 mg 1 daily; Requip 1 mg at bedtime; also, lactulose 30 mL t.i.d. ALLERGIES: Morphine, Buprenex, metronidazole and Cipro. REVIEW OF SYSTEMS: Progressive liver failure since 2017. SOCIAL HISTORY: There is no history of alcohol usage. She is a nonsmoker. FAMILY HISTORY: Unremarkable. PHYSICAL EXAMINATION: VITAL SIGNS: Temperature 98 degrees, heart rate 80, respirations 16, blood pressure 129/71, O2 saturation on room air 98%. GENERAL: The patient is a well-developed, well-nourished white female with ascites, who according to her son is becoming more lucid and less confused after being in the emergency room for several hours. On presentation, she was markedly confused and ammonia level was elevated at 119. HEENT: Pupils equal, round and reactive to light. Tympanic membranes without inflammation. Pharynx benign, with no erythema or exudate. NECK: Supple, with no mass or lymphadenopathy. HEART: Regular in rate and rhythm, with no murmur, rub or gallop. LUNGS: Clear, with no rales or rhonchi. ABDOMEN: Distended, not as tense as prior to discharge and prior to her last paracentesis a few days ago. EXTREMITIES: No cyanosis, clubbing or edema. RECTAL AND GENITALIA: Deferred. IMPRESSION: 1. Hepatic encephalopathy. 2. Cirrhosis. 3. Ascites. 4. Coagulopathy related to liver disease. 5. Elevated serum ammonia. 6. Volume depleted, with increased BUN and creatinine. PLAN: Admit for further evaluation and resumption of usual medication. Dr. Tillman is consulted for GI evaluation. cc: Ruben Goss MD
[2018-12-11] MEDS: LACTULOSE PO SCH (23:19)
[2018-12-12] MEDS: ULTRAM PO PRN ×2 (05:49→18:22)
[2018-12-12] MEDS: PROTONIX PO SCH (06:00)
--- NOTE | 2018-12-12 07:52 | PROVIDER DOCUMENTATION ---
This chart was entered by Bryan Medina Scribe, acting as scribe for Randy Cortés MD. HPI-Neurological Disorder - General Stated Complaint: AMS Time Seen by Provider: 12/11/18 13:30 Source: patient Allergies/Adverse Reactions: Patient Allergies Allergy/AdvReac Type Severity Reaction Status Date / Time morphine Allergy Severe blind Verified 11/22/18 17:02 buprenorphine HCl * Allergy Intermediate VOMITING Verified 11/22/18 17:02 [From Buprenex] codeine [Codeine] Allergy Intermediate ITCHING Verified 11/22/18 17:02 hydrocodone bitartrate * Allergy Intermediate ITCHING Verified 11/22/18 17:02 [From Lortab] ciprofloxacin [From Cipro] Allergy Mild VOMITING Verified 11/22/18 17:02 ciprofloxacin HCl * Allergy Mild VOMITING Verified 11/22/18 17:02 [From Cipro] metronidazole Allergy Mild vomitng Verified 11/22/18 17:02 propoxyphene HCl * Allergy Mild ITCHING Verified 11/22/18 17:02 [From Lorcet (propoxyphene)] clonazepam Allergy ITCHING Verified 11/22/18 17:02 Home Medications: Home Medication List Medication Instructions Recorded Confirmed Last Taken Type BENAZEpril [Lotensin] 20 mg PO DAILY 12/11/16 12/11/18 11/21/18 History Pantoprazole [Protonix] 40 mg PO DAILY@0700 12/01/18 12/11/18 Unknown History Paroxetine HCl [Paxil] 40 mg PO DAILY 12/01/18 12/11/18 Unknown History Bumetanide [Bumex] 1 mg PO DAILY #30 tab 12/02/18 12/11/18 Unknown Rx Potassium Chloride E.r. [Klor-Con] 10 meq PO DAILY #30 tab 12/02/18 12/06/18 Unknown Rx Ropinirole [Requip] 1 mg PO QHS PRN 12/06/18 12/11/18 Unknown History - History of Present Illness-Neuro Nature of Presenting Problem: Pt is a 73 yof who presents to the ED with a CC of altered mental status. Pt describes being confused and she doesn't feel like she can get out of bed. 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 Pt was recently in the ED to drain fluid off of her stomach. Pt's nurse said that 4.5 liters was drained. Pt states that she recently had to take 3x doses to have a BM. Headache Location: reports: global Severity: reports: mild Onset/Duration: reports: just prior to arrival Timing: reports: still present Character of Altered Mental Status: reports: confused Any recent trauma/injury?: reports: none Character of Deficits: reports: altered sensation Cognitive Baseline: alert but confused Associated Symptoms: reports: confusion Similar Symptoms Previously?: Yes Recently seen or treated by another doctor?: Yes Review of Systems - Adult - REVIEW OF SYSTEMS - ADULT Constitutional: reports: see HPI. denies: chills, fever, fatique Eyes: reports: see HPI Ears, Nose, Mouth & Throat: reports: no symptoms reported Cardiovascular: reports: no symptoms reported Respiratory: reports: no symptoms reported Gastrointestinal: reports: no symptoms reported Genitourinary: reports: no symptoms reported Musculoskeletal: reports: no symptoms reported Integumentary: reports: no symptoms reported Neurological: reports: other (Confusion) Psychiatric: reports: no symptoms reported Endocrine: reports: no symptoms reported Hematologic/Lymphatic: reports: no symptoms reported Allergic/Immunologic: reports: no symptoms reported All Other Systems: Reviewed and Negative Past History - Adult - PAST MEDICAL HISTORY-ADULT Review of Records: reports: Old Records Reviewed, Nursing Assessment Review, Medications Reviewed, Social history reviewed & non-contributory. Major Childhood Illnesses: reports: denies history Cardiovascular: reports: HTN Respiratory: reports: denies history Gastrointestinal: reports: diverticulosis, GERD, liver disease (cirrhosis), other (esophgeal varices) Obstetrical/Gynecological: reports: denies history Genitourinary: reports: kidney disease, other (IGA) Musculoskeletal: reports: arthritis, fibromyalgia Neurological: reports: denies history Psychiatric: reports: denies history Endocrine/Immune: reports: denies history Other Conditions: reports: denies history - PRIOR SURGERIES/PROCEDURES Surgical/Procedure History: reports: appendectomy, cholecystectomy, hysterectomy , BTL, orthopedic (extremity) (L shoulder), back/neck (back x2), other (lithrotripsy) - IMMUNIZATION STATUS Childhood Immunizations: See Nurse Assessment Flu Vaccine: See Nurse Assessment - FAMILY HISTORY Family History: reviewed, not pertinent - SOCIAL HISTORY Smoking: denies Substance Use: denies Alcohol Use Frequency: never Physical Exam- Neurological - Physical Exam-Neuro Initial Vital Signs Reviewed: Yes General Appearance: alert, obese, slow to respond. negative: severe distress, obtunded, combative Eye Exam: bilateral eye: other (Scleritis; Jaundiced) Head Injury: no evidence of injury Neck: non-tender. negative: C-spine tenderness, meningismus, thyromegaly Respiratory: chest non-tender, lungs clear, normal breath sounds. negative: crackles, rales, pleural rub, decreased rate Cardiovascular: normal peripheral pulses, regular rate, rhythm, no edema. negative: diastolic murmur, systolic murmur, extra beats Abdominal Exam: non tender, soft. negative: rebound, tenderness, hepatomegaly Extremity: normal range of motion. negative: deformity, erythema grocery store clerk Exam: normal hearing, normal speech. negative: facial droop, facial weakness, gaze palsy Integumentary: warm/dry. negative: cyanosis, decubitus, erythema, laceration(s) Psych/Mental Status: normal mood/affect. negative: paranoid, tearful Progress - PLAN OF CARE/RESULTS Progress/Plan/Lab Results: Laboratory Results - last 24 hr 12/11/18 12/11/18 12/11/18 13:41 13:41 13:41 WBC 11.64 H RBC 3.58 L Hgb 11.5 L Hct 33.7 L MCV 94.1 MCH 32.1 H MCHC 34.1 RDW Std Deviation 15.7 H Plt Count 188 MPV 10.6 H Immature Gran % (Auto) 0.3 Neut % (Auto) 70.8 Lymph % (Auto) 13.8 L [place] % (Auto) 14.3 H Eos % (Auto) 0.5 Baso % (Auto) 0.3 Immature Gran # (Auto) 0.03 Neut # (Auto) 8.24 H Lymph # (Auto) 1.61 [place] # (Auto) 1.67 H Eos # (Auto) 0.06 Baso # (Auto) 0.03 PT 20.5 H INR 1.62 PTT (Actin FS) 42.1 H Sodium 135 L Potassium 4.2 Chloride 99 Carbon Dioxide 25 Anion Gap 11 BUN 38 H Creatinine 1.6 H Estimated GFR/1.73 m2 32 BUN/Creatinine Ratio 24 Glucose 79 Calculated Osmolality 278 Calcium 8.2 L Total Bilirubin 2.49 H AST 47 H ALT 20 Alkaline Phosphatase 110 H Ammonia Troponin T Total Protein 6.6 Albumin 2.6 L Globulin 4.0 Albumin/Globulin Ratio 0.6 12/11/18 12/11/18 13:41 13:41 WBC RBC Hgb Hct MCV MCH MCHC RDW Std Deviation Plt Count MPV Immature Gran % (Auto) Neut % (Auto) Lymph % (Auto) [place] % (Auto) Eos % (Auto) Baso % (Auto) Immature Gran # (Auto) Neut # (Auto) Lymph # (Auto) [place] # (Auto) Eos # (Auto) Baso # (Auto) PT INR PTT (Actin FS) Sodium Potassium Chloride Carbon Dioxide Anion Gap BUN Creatinine Estimated GFR/1.73 m2 BUN/Creatinine Ratio Glucose Calculated Osmolality Calcium Total Bilirubin AST ALT Alkaline Phosphatase Ammonia 119 H Troponin T < 0.010 Total Protein Albumin Globulin Albumin/Globulin Ratio Orders Category Date Time Status Admit - [facility] Routine AdmDCTranf 12/11/18 15:12 Active Neurological Check ORDERED Care 12/11/18 15:48 Active Nursing- MD Consult Request ROUTINE Care 12/11/18 15:48 Active Physician/Provider Consults Routine Cons 12/11/18 15:48 Ordered Renal Diet Diet 12/11/18 15:49 Active CHEST-PORTABLE [RAD] Stat Exams 12/11/18 13:37 Completed AMMONIA [CHEM] Stat Lab 12/11/18 13:41 Completed CBC WITH ELECTRONIC DIFF [HEME] Stat Lab 12/11/18 13:41 Completed COMPREHENSIVE METABOLIC PANEL [CHEM] Stat Lab 12/11/18 13:41 Completed PROTIME WITH INR [COAG] Stat Lab 12/11/18 13:41 Completed PTT [COAG] Stat Lab 12/11/18 13:41 Completed TROPONIN T Stat Lab 12/11/18 13:41 Completed URINALYSIS W/POSS RFLX CULT [URINALYSIS] Stat Lab 12/11/18 15:41 Completed Lactulose Med 12/11/18 15:48 Discontinued 30 ml PO DAILY PRN PRN Transfer/Admit Order [TRANSFER] Routine Transfer 12/11/18 15:13 Completed Result Diagrams: 12/11/18 13:41 12/11/18 13:41 - EKG 1 Time of EKG reading by physician:: 13:38 EKG Read and Signed by:: Randy Cortés EKG Interpretation (*Must complete 3 of following elements*): Normal Rate: 81 Rhythm: nsr [place]: normal QRS: normal [place] Interval: normal - XRAY 1 XRAY Study: Chest (EXAM: CHEST-PORTABLE HISTORY: ams TECHNIQUE: Chest single view COMPARISON: 12/01/2018 FINDINGS: The lungs are well expanded. The heart is not enlarged. The vessels are not distended. There are no infiltra jamar. No effusion identified. IMPRESSION: Negative exam. Electronically signed by Arnie Lind 12/11/2018 1:57 PM 12/11/18 2867 Interpreting Physician: Arnie Lind MD Dictated Date/Time: 12/11/18 1357 cc: Randy Cortés MD; Ruben Goss MD) Impression: See EMR Report - CONSULTS/PCP/HOSPITALIST Notification #1 *Consult/PCP/Hospitalist*: Dr. Goss Time Discussed: 15:11 Consult Disposition: Admit #2 Consult: Dr. Tillman Time Discussed: 15:54 Consult Disposition: other (He will consult on pt.) Departure - Departure Date of Disposition Decision: 12/11/18 Time of Disposition Decision: 15:12 DIAGNOSIS: Hepatic encephalopathy, Acute on chronic renal insufficiency, Dehydration, An emia Disposition: ADMITTED INPATIENT 09 Certified Medical Emergency: Emergent Condition: Serious - Critical Care Note This patient required my direct & personal management of CC.: Yes Total Time (mins): 31 Critical Care Statement: This patient required my direct personal management to treat or rule out processes, the absence of which, could potentiallly result in sudden, clinically significant life or limb threatening deterioration. Attestation - Physician/ AMBER Attestation The physician spent face to face time with patient:: Yes Advanced Practice Provider documentation review:: Supervising physician onsite and consulted in the evaluation and care of this patient. The physician did have a face to face encounter with the patient. This chart was documented by the indicated scribe, (Bryan Medina, Steve) and accurately reflects the services I performed and decisions made by me, Randy Cortés MD, as attested by the provider's signature.
--- NOTE | 2018-12-12 08:38 | PROGRESS NOTE ---
DATE: 12/12/2018 Temperature 98.0 degrees, heart rate 84, respirations 21, blood pressure 123/62, O2 saturation on room air 98%. The patient is more alert this morning. Her abdomen is more tense with ascites. There is no ankle edema. PLAN: Gastroenterology consult, consider abdominal catheter for frequent paracenteses. Prognosis is poor long-term. Lab will be rechecked tomorrow. cc: Ruben Goss MD
[2018-12-12] MEDS: PAXIL PO SCH (08:46)
[2018-12-12] MEDS: LACTULOSE PO SCH ×3 (08:46→21:44)
[2018-12-12] MEDS: BUMEX PO SCH (08:46)
[2018-12-12] MEDS: KLOR-CON PO SCH (08:46)
--- NOTE | 2018-12-12 10:10 | Diag Imaging Result Doc PS360 ---
MRI BRAIN W/O CONTRAST - 12/11/2018 INDICATION: mental change COMPARISON: Head CT 09/15/2016 FINDINGS: There is no area of restricted diffusion. There is mild stable cerebral atrophy. There is moderately extensive primarily subcortical cerebral white matter hyperintensity bilaterally. This is stable from prior. This is compatible with chronic microvascular disease. No intracranial mass or hemorrhage. Midline structures are unremarkable. IMPRESSION: No acute process. Electronically signed by James Hightower 12/12/2018 10:07 AM
--- NOTE | 2018-12-12 21:26 | GASTROENTEROLOGY PROGRESS NOTE ---
DATE: 12/12/2018 HISTORY OF PRESENT ILLNESS: Ms. Aletha Fernandez is a known patient to me. She has history of cirrhosis of the liver with portal hypertension. Has history of hepatic encephalopathy and ascites, resistant to diuretics. She has been requiring frequent paracentesis for ascites. She was recently admitted to hospital on with rectal bleeding, which was considered to be subacute rectal bleeding most likely from external hemorrhoid. After she was found to have brown stool on the rectal exam, and her hemoglobin and hematocrit was stable, she was advised to follow up with me in the office and arrangements were being made for her to be seen at hepatology clinic at [facility] for possible TIPS procedure for her dense ascites. At the time of discharge, patient was seen by Dr. Mccoy. He mentioned that there was no evidence of encephalopathy, as she did not have any asterixis. The patient was brought into the emergency room yesterday after she was found to be confused and was readmitted to hospital with hepatic encephalopathy. This morning patient appears to be conscious. Appears to be alert and oriented. She has responded to questions appropriately. She was about to go to her MRI of the brain. She tells me she did not have any fever or chills. She has not had any dysuria, polyuria, hematuria. Has not had any abdominal pain or abdominal cramps. She denies melena or bright red blood per rectum. Has not had any hematemesis or coffee-ground emesis. PHYSICAL EXAMINATION: Vital Signs: On examination, patient's temperature 97.8, pulse was 91 per minute, breathing 15, blood pressure 111/47. She is 168 pounds. She is about 5 feet 4 inches tall. HEENT: Head is atraumatic, normocephalic. Eyes conjunctivae is normal. Sclerae mildly icteric. Nares patent. No discharge. Mouth was moist. Throat is normal. Neck: Neck is supple. No lymphadenopathy, thyromegaly. Chest: Clear to auscultate. Heart: Audible to murmur. Abdomen: Distended from ascites, but otherwise soft. It is nontender. I could not appreciate any mass or visceromegaly. Bowel sounds are audible. LABS: Reviewed. Other than slightly elevated white count 11.64 and mild anemia 11.5, hemoglobin and hematocrit 33.7, her CBC was fine. PT was 20.5. INR 1.62. PTT 42.1. Sodium 135, potassium 4.2, chloride 99, bicarb is 25. BUN is 38, creatinine 1.6. AST was 47, ALT 20, alkaline phosphate is 110 with total bilirubin of 2.49. IMPRESSION: 1. Hepatic encephalopathy. 2. Cirrhosis of the liver with portal hypertension. 3. Mild renal insufficiency most likely from volume depletion, elevated liver function tests most likely acute on chronic liver disease. 4. Ascites secondary to cirrhosis with portal hypertension. 5. Coagulopathy secondary to cirrhosis of the liver. RECOMMENDATION: The patient had presented to the emergency room with acute encephalopathy. As far as the precipitating cause for her encephalopathy, I am not sure. Her white count is slightly elevated. UTI or other source of infection is a possibility, but I do not have any evidence of either. She does not seem to have evidence of spontaneous bacterial peritonitis but there is always the likelihood, especially with the last presentation, where she had possibility of SBP. I would recommend to continue current treatment, but would add antibiotics at least for 14 days and then continue prophylactic antibiotic for SBP. She needs to keep her appointment with the Liver Department at [facility]. At this point, I do not think she needs any other intervention. cc: MD Ruben Ferrell MD MTDD
[2018-12-12] MEDS: NS 1,000 ML IV SCH (21:39)
[2018-12-13] MEDS: ULTRAM PO PRN ×2 (00:17→05:46)
[2018-12-13] MEDS: NS 1,000 ML IV SCH (04:16)
[2018-12-13] MEDS: PROTONIX PO SCH (06:02)
[2018-12-13 07:45] LABS: ALB/GLOB RATIO 0.6; ALBUMIN 2.2 g/dL (3.5-5.0); DIRECT BILIRUBIN 0.8 mg/dL (0.00-0.20); TOTAL BILIRUBIN 1.67 mg/dL (0.20-1.00); TOTAL PROTEIN 5.6 g/dL (6.3-8.3)
[2018-12-13 07:51] LABS: AGAP 7; BUN 27 mg/dL (8-22); CALCIUM 7.9 mg/dL (8.8-10.2); CHLORIDE 98 mmol/L (98-107); COSMO 267; CREATININE 0.9 mg/dL (0.5-0.9); ESTIMATED GFR > 60; GLUCOSE 92 mg/dL (70-104); POTASSIUM 3.4 mmol/L (3.5-5.1); SODIUM 131 mmol/L (136-145); TCO2 26 mmol/L (25-35)
[2018-12-13] MEDS: BUMEX PO SCH (08:12)
[2018-12-13] MEDS: KLOR-CON PO SCH (08:12)
[2018-12-13] MEDS: LACTULOSE PO SCH (08:12)
[2018-12-13] MEDS: PAXIL PO SCH (08:12)
[2018-12-13] MEDS ORDERED: ALDACTONE PO SCH (10:30)
[2018-12-13] MEDS ORDERED: KEFLEX PO SCH (10:45)
--- NOTE | 2018-12-13 11:11 | PROGRESS NOTE ---
DATE: 12/13/2018 VITAL SIGNS: Temperature 97.9 degrees, heart rate 82, respirations 20, blood pressure 123/51, and O2 saturation on room air 99%. LABORATORY: Sodium 131, potassium 3.4, BUN 27, creatinine 0.9, bilirubin 1.6, direct bilirubin 0.8, AST 53, ALT 19, alkaline phosphatase 99, ammonia 99, total protein 5.6, and albumin 2.2. DISCUSSION: The patient is feeling short of breath despite the O2 saturation of 99% on room air. She has moderate to large amount of ascites with a tense abdomen. A discussion was made with Dr. Tillman's nurse practitioner concerning need for paracentesis. She has an appointment in [place] for a possible procedure for catheter in her abdomen. Due to her recent history and several paracenteses, it is felt that she needs to have some fluid drawn. Also, she will not return to the hospital prior to her appointment in [place] on Sunday. If there are no complications following her paracentesis, she should be able to go home today. cc: Ruben Goss MD
--- NOTE | 2018-12-13 16:24 | Diag Imaging Result Doc PS360 ---
EXAM: US ABD PARACENTESIS W S/I 12/13/2018 HISTORY: ascites, therapeutic and diagnostic TECHNIQUE: Ultrasound-guided paracentesis COMMENT: The risks and benefits of the procedure including the possibility of bleeding, infection, puncture of hollow viscus or reaction to lidocaine were discussed with the patient and she agreed to the procedure. Following sterile preparation of the skin on the left lateral aspect of the abdomen over the larger fluid pocket, and administration 1% lidocaine to the skin and deeper soft tissues, the paracentesis catheter was placed and subsequently 5.3 L of fairly clear yellow fluid was drained. This was sent to the laboratory in its entirety. There are no immediate complications. IMPRESSION: Successful ultrasound-guided paracentesis. Electronically signed by Eddy Cesar 12/13/2018 4:22 PM
--- NOTE | 2018-12-13 17:15 | GASTROENTEROLOGY PROGRESS NOTE ---
DATE: 12/13/2018 SUBJECTIVE: Patient is awake and alert. She is complaining of some shortness of breath and abdominal distention. OBJECTIVE: Vital signs: Temperature 97.9 degrees, pulse 82, respirations 20, blood pressure 123/51. General: Patient is awake and alert. She is complaining of some shortness of breath. Abdomen: Abdomen with ascites and distention. Abdomen somewhat firm, nontender. LABORATORY: Hematology: WBC 11.64, hemoglobin 11.5, hematocrit 33.7, MCV 94.1, platelet 188,000. Chemistry: Sodium 131, potassium 3.4, chloride 98, CO2 26, BUN 27, creatinine 0.9. Total bilirubin 1.67, AST 53, ALT 19, alkaline phosphatase 99. ASSESSMENT AND PLAN: 1. Hepatic encephalopathy improved. 2. Cirrhosis of the liver with portal hypertension. 3. Ascites. 4. Renal insufficiency. PLAN: Patient does have significant ascites. She does not think she can wait until her appointment at [facility] next week. We have ordered paracentesis, diagnostic and therapeutic since patient did have recent bacterial peritonitis. Patient has an appointment at [facility] on 12/17/2018. Once patient has paracentesis today if she tolerates well hopefully she will be able to be discharged. I have discussed plans with Dr. Goss who was also seen the patient at the same time I was in the room. I have discussed this case with Dr. Tillman. Further plans to be made as needed. Dictated by JAMILA Subramanian for Bradley Tillman MD cc: JAMILA Parrish MD Robert Allen, MD
[2018-12-13 17:24] VITALS: BP 142/51
--- NOTE | 2018-12-14 14:25 | DISCHARGE SUMMARY ---
ADMISSION DATE: 12/11/2018 DISCHARGE DATE: 12/13/2018 FINAL DIAGNOSES: 1. Hepatic encephalopathy. 2. Elevated serum ammonia. 3. Cirrhosis with liver failure. 4. Ascites. 5. Hypertension. DISCHARGE MEDICATIONS: Usual medication at home plus spironolactone 50 mg 1 daily, and Keflex 500 mg b.i.d. x15 days. HISTORY: This is one of several recent admissions for this 73-year-old white female with acute mental change for 48 hours, who presented to the emergency room. Serum ammonia was 119. She was admitted for further evaluation and treatment. INITIAL LABORATORY: Hemoglobin 11.5, hematocrit 33.7, white blood count 36801 with 71% neutrophils. Sodium 135, potassium 4.2, BUN 38, creatinine 1.6, calcium 8.2. Total bilirubin 2.5, AST 47, ALT 20, alkaline phosphatase 110, ammonia 119, albumin 2.6. HOSPITAL COURSE: GI consult was obtained. She was started back on lactulose. It is uncertain whether she was taking this at home. Chest x-ray showed no infiltrates. Cardiac size was normal. EKG reveals sinus rhythm, unchanged from previous recent EKGs. Serum ammonia yesterday was 99. Discussion was made with clerical administrative assistant who plans to do a paracentesis today. If there are no complication, she may be discharged on the above medications to be seen back in the office and as needed for followup. She is to go to [place] and keep her appointment on Sunday for procedure to place a catheter in her abdomen for frequent paracenteses. cc: Ruben Goss MD
== END 2018-12-13 17:56 | disposition home health service (06) | DRG 442 ==
LOC: SUPCPDRO → ED 13:24 → EDIPHOLD 15:38 → 3N 21:03
PROVIDERS: ADMIT Family Medicine; ATTEND Family Medicine
CPT/HCPCS: 49083; 70551; 71010; 71045; 80048; 80053; 80076; 81001; 82140; 84484; 85025; 85610; 85730; 93005; 99285; A9270; J7030

== ENCOUNTER 2018-12-17 12:59 | Inpatient (IN) ==
[2018-12-17 14:03] LABS: ALLEN TEST NO; BE 4.9 mmoll (-3.0-3.0); BLOOD TYPE ARTERIAL; HCO3-(ACT) 28.7 mmoll (20.0-26.0); METHB 1.2 % (0.0-1.5); O2(CT) 14.8 mL/dL (15.0-23.0); PCO2(98.6) 31 mmHg (35-45); PO2(98.6) 96 mmHg (60-100); SAMPLE BLOOD; SAO2 98.9 % (95.0-100.0); THB 10.9 g/dL (11.5-17.4); pH(98.6) 7.55 (7.35-7.45)
[2018-12-17 14:04] LABS: MODALITY ROOM AIR
[2018-12-17 14:15] LABS: BASO# 0.03 X1000 (0.0-0.2); BASO% 0.4 % (0.0-0.8); EOS# 0.11 X1000 (0.0-0.7); EOS% 1.3 % (0.0-10.0); HEMATOCRIT 32.1 % (37.0-47.0); HEMOGLOBIN 10.9 g/dL (12.0-16.0); LYMPH# 1.46 X1000 (1.2-3.4); LYMPH% 17.5 % (20.5-51.1); MCH 32.1 PG (27-31); MCV 94.4 FL (81-99); MONO# 1.41 X1000 (0.11-0.59); MONO% 16.9 % (1.7-9.3); MPV 10.1 FL (7.4-10.4); NEUT# 5.32 X1000 (1.4-6.5); NEUT% 63.9 % (42.2-75.2); PLT 191 X1000 (130-400); RDW 15.9 % (11.5-14.5); WBC 8.33 X1000 (4.8-10.8)
--- NOTE | 2018-12-17 14:32 | EKG Report ---
Test Performed on : 12/17/2018 2:24:19 PM Test Reason : ams Blood Pressure : / mmHG Vent. Rate : 081 BPM Atrial Rate : 081 BPM P-R Int : 138 ms QRS Dur : 070 ms QT Int : 394 ms P-R-T Axes : 071 033 054 degrees QTc Int : 457 ms Normal sinus rhythm. Low voltage QRS Septal infarct , age undetermined Abnormal ECG When compared with ECG of 11-DEC-2018 13:38, (Unconfirmed) Septal infarct is now present Unconfirmed Result
--- NOTE | 2018-12-17 14:35 | Diag Imaging Result Doc PS360 ---
CHEST-1 VIEW - 12/17/2018 INDICATION: ams COMPARISON: 12/11/2018 FINDINGS: Lung volumes are critically low. There is no obvious abnormality otherwise. IMPRESSION: Critically low lung volumes. Electronically signed by James Hightower 12/17/2018 2:33 PM
[2018-12-17 14:38] LABS: ALB/GLOB RATIO 0.6; ALBUMIN 2.3 g/dL (3.5-5.0); CALCIUM 7.7 mg/dL (8.8-10.2); TOTAL BILIRUBIN 2.92 mg/dL (0.20-1.00); TOTAL PROTEIN 5.9 g/dL (6.3-8.3)
[2018-12-17] MEDS ORDERED: LACTULOSE PO ONE (15:00)
--- NOTE | 2018-12-17 15:59 | PROVIDER DOCUMENTATION ---
This chart was entered by Rachana Uribe Scribe, acting as scribe for Daryn Sotelo MD. HPI-General Adult - General Chief Complaint: Altered Mental Status Stated Complaint: AMS Time Seen by Provider: 12/17/18 13:03 Source: patient, family, EMS Unable to obtain history due to:: altered Allergies/Adverse Reactions: Patient Allergies Allergy/AdvReac Type Severity Reaction Status Date / Time morphine Allergy Severe blind Verified 11/22/18 17:02 buprenorphine HCl * Allergy Intermediate VOMITING Verified 11/22/18 17:02 [From Buprenex] codeine [Codeine] Allergy Intermediate ITCHING Verified 11/22/18 17:02 hydrocodone bitartrate * Allergy Intermediate ITCHING Verified 11/22/18 17:02 [From Lortab] ciprofloxacin [From Cipro] Allergy Mild VOMITING Verified 11/22/18 17:02 ciprofloxacin HCl * Allergy Mild VOMITING Verified 11/22/18 17:02 [From Cipro] metronidazole Allergy Mild vomitng Verified 11/22/18 17:02 propoxyphene HCl * Allergy Mild ITCHING Verified 11/22/18 17:02 [From Lorcet (propoxyphene)] clonazepam Allergy ITCHING Verified 11/22/18 17:02 Home Medications: Home Medication List Medication Instructions Recorded Confirmed Last Taken Type BENAZEpril [Lotensin] 20 mg PO DAILY 12/11/16 12/11/18 11/21/18 History Pantoprazole [Protonix] 40 mg PO DAILY@0700 12/01/18 12/11/18 Unknown History Paroxetine HCl [Paxil] 40 mg PO DAILY 12/01/18 12/11/18 Unknown History Bumetanide [Bumex] 1 mg PO DAILY #30 tab 12/02/18 12/11/18 Unknown Rx Potassium Chloride E.r. [Klor-Con] 10 meq PO DAILY #30 tab 12/02/18 12/06/18 Unknown Rx Ropinirole [Requip] 1 mg PO QHS PRN 12/06/18 12/11/18 Unknown History CephALEXIN [Keflex] 500 mg PO Q12HR #30 cap 12/13/18 Unknown Rx Lactulose 30 ml PO 0900,1500,2100 #90 udc 12/13/18 Unknown Rx Spironolactone [Aldactone] 50 mg PO DAILY #30 tab 12/13/18 Unknown Rx - History of Present Illness -Gen Adult Nature of Presenting Problems: 73 yowf presents to the ed with her daughter via ems. pt had an appointment this am at [facility] with the liver dr. pt is in lever failure. daughter sts unable to get her mother (pt) in the vehicle so she called 911. she requested pt be sent to [facility] but first response declined and sts pt had to come to local ed to get eval then maybe could be transferee. pt daughter called [facility] and was told if transferred to go er-er. Location of Pain/Injury: reports: abdomen, generalized (fatigue and weakness) Quality of Pain: reports: fullness Onset/Duration: reports: gradual Timing: reports: still present, getting worse Context/Activities at Onset: reports: light activity Associated Symptoms: reports: fatigue, fever/chills, genitourinary problems, malaise, weakness. denies: back/neck pain, chest pain, shortness of breath Similar Symptoms Previously?: Yes Recently seen or treated by another doctor?: No Review of Systems - Adult - REVIEW OF SYSTEMS - ADULT ROS:: ROS per family (daughter) Constitutional: reports: see HPI, chills, fever, fatique, weight gain Eyes: reports: no symptoms reported Ears, Nose, Mouth & Throat: reports: no symptoms reported Cardiovascular: denies: chest pain, palpitations, syncope Respiratory: denies: dyspnea on exertion, shortness of breath, wheezing Gastrointestinal: reports: see HPI, abdominal pain. denies: diarrhea, nausea, vomiting Genitourinary: reports: see HPI, incontinence, other (decreased urination) Musculoskeletal: reports: see HPI, back pain, muscle aches, muscle weakness. denies: neck pain Integumentary: reports: no symptoms reported Neurological: denies: dizziness/vertigo, headache/migraines, syncope, tremors Psychiatric: reports: see HPI, other (confusion) Endocrine: reports: no symptoms reported Hematologic/Lymphatic: reports: no symptoms reported Allergic/Immunologic: reports: no symptoms reported All Other Systems: Reviewed and Negative Past History - Adult - PAST MEDICAL HISTORY-ADULT Review of Records: reports: Nursing Assessment Review, Medications Reviewed Major Childhood Illnesses: reports: denies history Cardiovascular: reports: HTN Respiratory: reports: denies history Gastrointestinal: reports: diverticulosis, GERD, liver disease (cirrhosis), other (esophgeal varices) Obstetrical/Gynecological: reports: denies history Genitourinary: reports: kidney disease, other (IGA) Musculoskeletal: reports: arthritis, fibromyalgia Hand Dominance: Right Handed Neurological: reports: denies history Psychiatric: reports: denies history Endocrine/Immune: reports: denies history Other Conditions: reports: denies history - PRIOR SURGERIES/PROCEDURES Surgical/Procedure History: reports: appendectomy, cholecystectomy, hysterectomy , BTL, orthopedic (extremity) (L shoulder), back/neck (back x2), other (lithrotripsy) - IMMUNIZATION STATUS Childhood Immunizations: See Nurse Assessment Flu Vaccine: See Nurse Assessment - FAMILY HISTORY Family History: reviewed, not pertinent - SOCIAL HISTORY Smoking: quit greater than 1 year Substance Use: denies Alcohol Use Frequency: never Living Situation: family Physical Exam-General - PHYSICAL EXAM-ADULT Initial Vital Signs Reviewed: Yes - CONSTITUTIONAL General Appearance: mild distress, obese, slow to respond - EYES Eyes: PERRL/EOMI - HEAD, EARS, NOSE, MOUTH & THROAT HENMT: moist mucous membranes, normal ENT inspection - NECK Neck: full range of motion, supple, normal inspection - RESPIRATORY Respiratory: chest non-tender, lungs clear, normal breath sounds - CARDIOVASCULAR Cardiovascular: normal peripheral pulses, regular rate, rhythm - GASTROINTESTINAL (ABDOMEN) Abdominal Exam: abnormal bowel sounds (hyper), distended, guarding, other (pt has had 19 liters in 6x of fluid drained from abdomen. pt is liver failure) - LYMPHATIC Lymphatic: no adenopathy - MUSCULOSKELETAL Back Exam: normal inspection Extremity: normal range of motion, normal capillary refill, pelvis stable - SKIN Integumentary: normal color, normal turgor, warm/dry - NEUROLOGIC Neurologic: grossly normal - PSYCHIATRIC Psych/Mental Status: normal mood/affect, normal thought content, normal thought process, oriented x 3 Progress - PLAN OF CARE/RESULTS Progress/Plan/Lab Results: Orders Category Date Time Status Nursing- Obtain EKG ONCE Care 12/17/18 13:44 Active ABG [RESP] Routine Lab 12/17/18 13:46 Ordered AMMONIA [CHEM] Stat Lab 12/17/18 13:44 Uncollected CBC WITH ELECTRONIC DIFF [HEME] Stat Lab 12/17/18 13:44 Uncollected COMPREHENSIVE METABOLIC PANEL [CHEM] Stat Lab 12/17/18 13:44 Uncollected TROPONIN T Stat Lab 12/17/18 13:44 Uncollected URINALYSIS [URINALYSIS] Stat Lab 12/17/18 13:44 Uncollected EKG [EKG] Stat Ther 12/17/18 13:44 Ordered Result Diagrams: 12/17/18 14:05 12/17/18 14:05 - REASSESSMENT Reassessment #1 Time Reassessed: 14:37 Status: unchanged - EKG 1 Time of EKG reading by physician:: 14:24 EKG Read and Signed by:: Daryn Sotelo EKG Interpretation (*Must complete 3 of following elements*): Abnormal Rate: 81 Rhythm: nsr [place]: normal QRS: other (low voltage qrs) DE Interval: normal ST Wave: normal Comments: septal infarct, age undetermined - XRAY 1 XRAY: Bilateral XRAY Study: Chest Impression: See EMR Report (CHEST-1 VIEW - 12/17/2018 INDICATION: ams COMPARISON: 12/11/2018 FINDINGS: Lung volumes are critically low. There is no obvious abnormality otherwise. IMPRESSION: Critically low lung volumes. Electronically signed by James Hightower 12/17/2018 2:33 PM 12/17/18 1433 Interpreting Physician: James Hightower MD Dictated Date/Time: 12/17/18 1432 cc: Daryn Sotelo MD; Tamela Goss MD) - CONSULTS/PCP/HOSPITALIST Notification #1 *Consult/PCP/Hospitalist*: [facility] Time Discussed: 15:46 (no beds at this time, will call back when bed is available) Reason/Comments: phone consult #2 Consult: tamela goss pcp Reason/Comments: phone consultfor admit Consult Disposition: Admit Departure - Departure Date of Disposition Decision: 12/17/18 Time of Disposition Decision: 16:04 DIAGNOSIS: Ascites, Hepatic encephalopathy, Increased ammonia level, Anemia, Acute on chronic renal insufficiency Disposition: ADMITTED INPATIENT 09 Certified Medical Emergency: Emergent Condition: Fair Referrals and Follow-Ups: Tamela Goss MD [Primary Care Provider] - - Critical Care Note This patient required my direct & personal management of CC.: No Attestation - Physician/ AMBER Attestation Patient care was provided by Advanced Practice Provider:: No The physician spent face to face time with patient:: Yes Advanced Practice Provider documentation review:: Supervising physician onsite and consulted in the evaluation and care of this patient. The physician did have a face to face encounter with the patient. This chart was documented by the indicated scribe, (Rachana Uribe Scribe) and accurately reflects the services I performed and decisions made by me, Daryn Sotelo MD, as attested by the provider's signature.
[2018-12-17 16:32] LABS: URINE SOURCE CLEAN CATCH
[2018-12-17 16:36] LABS: BILIRUBIN URINE NEGATIVE (NEGATIVE); BLOOD URINE NEGATIVE (NEGATIVE); COLOR YELLOW; GLUCOSE URINE NEGATIVE (NEGATIVE); KETONE URINE NEGATIVE (NEGATIVE); LEUKOCYTES URINE NEGATIVE (NEGATIVE); NITRITE URINE NEGATIVE (NEGATIVE); PH URINE 5.5; PROTEIN URINE NEGATIVE (NEGATIVE); TURBIDITY URINE CLEAR (CLEAR); UROBILINOGEN URINE NORMAL (NORMAL)
[2018-12-17 16:37] LABS: UR EPITHELIAL CELLS <10 /HPF (<10); URINE BACTERIA NEGATIVE /HPF; URINE RBC <10 /HPF (<10); URINE WBC <10 /HPF (<10)
[2018-12-17 17:16] LABS: INR 1.69; PROTIME 21.2 Seconds (11.0-16.0)
[2018-12-17 17:17] LABS: PTT 40.8 Seconds (22.3-41.8)
[2018-12-17] MEDS ORDERED: REQUIP PO PRN (19:09)
--- NOTE | 2018-12-17 20:01 | HISTORY AND PHYSICAL ---
CHIEF COMPLAINT: Confusion and ascites. PRESENT ILLNESS: This is one of several recent [facility] admissions for this 73-year-old white female with hepatic encephalopathy, chronic liver failure, cirrhosis, ascites, and elevated ammonia level. She was to have an appointment at [facility] at 3 o'clock this afternoon with activities director scouting who would perform a TIPS procedure with insertion of catheter for intermittent paracenteses. This morning, the patient refused to go. The daughter called my office asking what she could do and was told to have an ambulance come and take her to [facility]. The ambulance picked her up and brought her to [facility] ER. She was seen by Dr. Sotelo who called [facility] and spoke with the activities director scouting who she was supposed to see today. He agreed to accept the patient in transfer, but currently had no bed available. She is admitted to [facility] until bed can be obtained to transfer her to [facility]. She has had 3 paracenteses recently, 1 every 5 days with removal of over 4 L of fluid on each procedure. It is uncertain whether she is taking her lactulose as instructed. Ammonia level at the time of her last admission was 119. Ammonia level today in the emergency room was 143. Other lab includes CBC with white blood count 8300, hemoglobin 10.9, hematocrit 32.1. INR is 1.69, PTT is 40.8. Sodium 136, potassium 4.0, BUN 26, creatinine 1.0, calcium 7.7, total bilirubin 2.92, AST 65, ALT 25, alkaline phosphatase 112, ammonia 143. Troponin T less than 0.01. Total protein 5.9, albumin 2.3. Urinalysis normal. PAST MEDICAL HISTORY: Can be obtained from most recent charts. Her last hospitalization was 12/11 to 12/13. Dr. Tillman recommended p.o. antibiotics for a few weeks. She was placed on Keflex at discharge on 12/13. PAST SURGICAL HISTORY: Previous surgeries include cholecystectomy in 1973, tubal ligation 1971, 2 back surgeries 1985, 2 shoulder surgeries in 1983 and hysterectomy 1988. CURRENT MEDICATIONS: Bumex 1 mg daily, benazepril 20 mg daily, hydrochlorothiazide 25 mg daily, Paxil 40 mg 1 daily, Requip 1 mg at bedtime, KCl 10 mEq 1 daily, lactulose 30 mL t.i.d., and spironolactone 50 mg daily. ALLERGIES: Morphine, Buprenex, metronidazole and Cipro. REVIEW OF SYSTEMS: Progressive liver failure since 2017. SOCIAL HISTORY: No history of alcohol usage. She is a nonsmoker. FAMILY HISTORY: Unremarkable. PHYSICAL EXAMINATION: VITAL SIGNS: Temperature 99 degrees, heart rate 82, respirations 20, blood pressure 110/49, O2 saturation room air 99%. The patient is conversant and responds appropriately to simple questions. The family, a daughter and a sister state that she is less confused than she was when she first came to the ER. Pupils are equal, round, and reactive to light. Tympanic membranes without inflammation. Pharynx benign. NECK: Supple with no mass or lymphadenopathy. HEART: Regular in rate and rhythm with no murmur, rub or gallop. LUNGS: Decreased breath sounds at the bases but no rales or rhonchi. ABDOMEN: Distended and moderately tense with ascites. EXTREMITIES: No cyanosis, clubbing, or edema. PELVIC AND RECTAL: Deferred. IMAGING: Chest x-ray revealed critically low lung volumes but otherwise no abnormality. PLAN: Admit for supportive care, probable paracentesis, and impending transfer to [facility] when a bed is available. Dr. Tillman is consulted. cc: Ruben Goss MD
[2018-12-17] MEDS: KEFLEX PO SCH (20:39)
[2018-12-17] MEDS: LACTULOSE PO SCH (20:39)
[2018-12-17] MEDS: ULTRAM PO PRN (21:01)
--- NOTE | 2018-12-18 08:43 | Diag Imaging Result Doc PS360 ---
EXAM: US GB < RUQ (LIMITED) HISTORY: ascities TECHNIQUE: Limited abdominal ultrasound COMPARISON: 12/13/2018 FINDINGS: There is only a small amount of ascites on the current exam. This is much less than was present on the prior exam. Therapeutic paracentesis was not performed. Electronically signed by Arnie Lind 12/18/2018 8:40 AM
[2018-12-18] MEDS: LACTULOSE PO SCH ×3 (08:54→18:44)
[2018-12-18] MEDS: ALDACTONE PO SCH (08:55)
[2018-12-18] MEDS: PROTONIX PO SCH (08:55)
[2018-12-18] MEDS: LOTENSIN PO SCH (08:56)
[2018-12-18] MEDS: BUMEX PO SCH (08:56)
[2018-12-18] MEDS: KEFLEX PO SCH ×2 (08:56→20:44)
[2018-12-18] MEDS: KLOR-CON PO SCH (08:56)
--- NOTE | 2018-12-18 10:03 | PROGRESS NOTE ---
DATE: 12/18/2018 OBJECTIVE: Vital Signs: Temperature 97.7 degrees, heart rate 82, respirations 18, blood pressure 107/62, O2 saturation on room air 98%. General: The patient is alert, and mental status is near baseline. She answers simple questions appropriately. Chest: Clear. Abdomen: Moderately tense. Extremities: There is no ankle edema. IMAGING: Abdominal ultrasound was done this morning, and there was only a small amount of ascites present. This was much less than on prior exam. Paracentesis was not performed. PLAN: Attempt to transfer to [place] for definitive TIPS procedure. Dr. Tillamn is consulted for assistance. If her ammonia level is better tomorrow and her mental status is stable, she may be sent home with plans to go to [place] as an outpatient. It is concerning with her recurrent ascites, that she may continue to have repeated hospitalizations for hepatic encephalopathy and paracentesis. She is eating fairly well. She had a bowel movement today. I and O balance is - 700. Lab will be repeated tomorrow morning, including ammonia and BMP. cc: Ruben Goss MD
[2018-12-18] MEDS: PAXIL PO SCH (11:14)
[2018-12-18] MEDS: ULTRAM PO PRN ×2 (14:04→20:44)
--- NOTE | 2018-12-18 17:50 | GASTROENTEROLOGY PROGRESS NOTE ---
DATE: 12/18/2018 SUBJECTIVE: This is the 3rd admission in the last month for Ms. Fernandez. She has chronic liver failure, cirrhosis with ascites, and has had to have frequent paracenteses. The patient had been referred to B for evaluation for possible TIPS procedure. She had an appointment yesterday but missed the appointment. Per patient's daughter, she states she could not get her out of bed. Patient was confused and would not cooperate. Her daughter called an ambulance. Currently at the time of my evaluation, patient is awake and alert. I am not sure patient has been taking her medications since her discharge on 12/13/2018. Patient lives alone. Patient lives in [place], and her daughter lives in [place]. The daughter had come the morning of her [facility] appointment which was yesterday to pick her mother up, and she could not get her out of bed. She was lethargic and confused. On evaluation in the emergency room, ER physician called [facility] and spoke with the launching pad mechanic who was supposed to see the patient. He did agree to accept the patient in transfer, but unfortunately there are no beds available at present time. Patient's last paracentesis was on Sunday with approximately 4 L of fluid removed. She was sent home on antibiotics. She had findings consistent with bacterial peritonitis with her previous paracentesis. Again I am not sure the patient has been taking her medications as prescribed. OBJECTIVE: Vital Signs: Temperature 97.7 degrees, pulse 79, respirations 22, blood pressure 127/68. General: At the time of my evaluation, patient was alert and oriented. She knew my name. At the time of my evaluation, her daughter was not present but came into the operating room during my evaluation. The daughter showed me a video of her mother yesterday when she was trying to get her out of bed, and she was uncooperative and confused. Respiratory: Lung sounds essentially clear. Abdomen: With some ascites noted, otherwise some firmness noted. Patient had an ultrasounds on admission that showed only a small amount of ascites. Therefore, a paracentesis was not performed. Genitourinary: Patient has a Rodríguez catheter in place. Extremities: No lower extremity edema noted. DIAGNOSTIC RESULTS: Laboratory: Hematology: WBC 8.33, hemoglobin 10.9, hematocrit 32.1, MCV 94.4. Coagulation: Pro time 21.2, INR 1.69, PTT 40.8. Chemistry: Sodium 136, potassium 4, chloride 100, CO2 of 26, BUN 26, creatinine 1, glucose 83, calcium 7.7, total bilirubin 2.92, AST 65, ALT 25, alkaline phosphatase 112, ammonia 143. Urinalysis was normal. ASSESSMENT AND PLAN: 1. Hepatic encephalopathy has improved. Patient is currently alert and oriented. 2. Ascites with no significant ascites on ultrasound yesterday. Paracentesis was not performed. 3. Cirrhosis of the liver requiring frequent paracentesis. Patient had been referred to [facility] for evaluation for possible TIPS procedure. Unfortunately, she missed her appointment yesterday because of encephalopathy. ER doctor has spoken with the doctor at [facility] who does agree to accept her on transfer, but currently there are no beds available. Will continue current management. Continue lactulose. Continue diuretics. 4. Further plans to be made as needed. I have discussed this case with Dr. Tillman. I have also talked with the daughter about planning for the future. It looks like the patient will not be able to stay by herself. Further plans will need to be made to prevent frequent hospitalizations. Again, we will continue to follow and further plans to be made as needed. Dictated by JAMILA Subramanian for Bradley Tillman MD cc: JAMILA Parrish MD Robert Allen, MD
[2018-12-19] MEDS: ULTRAM PO PRN (01:34)
[2018-12-19 05:48] LABS: URINE SOURCE CATH
[2018-12-19] MEDS: PROTONIX PO SCH (06:20)
[2018-12-19 06:30] LABS: BILIRUBIN URINE NEGATIVE (NEGATIVE); BLOOD URINE MODERATE (NEGATIVE); COLOR ORANGE; GLUCOSE URINE NEGATIVE (NEGATIVE); KETONE URINE NEGATIVE (NEGATIVE); LEUKOCYTES URINE MODERATE (NEGATIVE); NITRITE URINE NEGATIVE (NEGATIVE); PH URINE 5.5; PROTEIN URINE 70 mg/dL (NEGATIVE); SP GRAVITY URINE 1.013; TURBIDITY URINE TURBID (CLEAR); UROBILINOGEN URINE 6 mg/dL (NORMAL)
[2018-12-19 06:34] LABS: UR EPITHELIAL CELLS <10 /HPF (<10); URINE BACTERIA NEGATIVE /HPF; URINE RBC 20-40 /HPF (<10); URINE WBC 20-40 /HPF (<10)
[2018-12-19 06:57] LABS: URINE CASTS NONE SEEN; URINE CRYSTALS NONE SEEN; URINE SMALL ROUND CELLS NONE SEEN; URINE YEAST NONE SEEN
[2018-12-19 07:07] LABS: CALCIUM 7.8 mg/dL (8.8-10.2); CREATININE 1.3 mg/dL (0.5-0.9); POTASSIUM 4.1 mmol/L (3.5-5.1)
--- NOTE | 2018-12-19 08:39 | PROGRESS NOTE ---
DATE: 12/19/2018 VITAL SIGNS: Temperature 98.5 degrees, heart rate 96, respirations 16, blood pressure 95/30, O2 saturation on room air 99%. LABORATORY DATA: Sodium 130, potassium 4.1, BUN 26, creatinine 1.3. Ammonia level 90. OBJECTIVE: General: The patient is alert and oriented. Abdomen: Soft with mild distention. PLAN: Discussion was made with her daughter yesterday. Apparently, she is noncompliant at home with medications. It is likely that if she is discharged, she will return to the emergency room in a few days with increased ascites and increased ammonia level with confusion. Attempts have been and will be made with transfer to [facility]. [employer] will be called to see if a bed is available today. The patient removed telemetry and disconnected Rodríguez last night. These are discontinued. cc: Ruben Goss MD
[2018-12-19] MEDS: ALDACTONE PO SCH (09:02)
[2018-12-19] MEDS: LOTENSIN PO SCH (09:02)
[2018-12-19] MEDS: BUMEX PO SCH (09:02)
[2018-12-19] MEDS: PAXIL PO SCH (09:02)
[2018-12-19] MEDS: LACTULOSE PO SCH ×3 (09:03→18:12)
[2018-12-19] MEDS: KLOR-CON PO SCH (09:03)
[2018-12-19] MEDS: SEPTRA DS PO SCH (09:06)
--- NOTE | 2018-12-19 18:43 | PROGRESS NOTE ---
DATE: 12/19/2018 SUBJECTIVE: The patient is feeling fairly well this afternoon, except she feels her stomach is getting bigger and that she will most likely need fluid drawn off before discharge. Discussion was made with Dr. Quick at [facility] in [place], who is on-call for Gastroenterology service. He felt, after discussion, that a TIPS procedure was not indicated at the current time, because he felt that her hepatic encephalopathy would become worse and also there would be increased chance of peritonitis with mild current infection. He also suggested that paracentesis be done every 2 weeks instead of every week, even though there would be possibly 8 L to be drawn off. I am not sure she would tolerate much more than 6 L. Discussion was made with the patient concerning disposition. It is felt that she will most likely benefit from rehab. The most. Because of her noncompliance at home, if she were discharged she would probably return within 4 days for readmission. PLAN: Rehabilitation and possible paracentesis. cc: Ruben Goss MD
[2018-12-20] MEDS: SEPTRA DS PO SCH ×2 (00:43→09:44)
[2018-12-20] MEDS: PROTONIX PO SCH (08:14)
[2018-12-20] MEDS: ALDACTONE PO SCH (09:43)
[2018-12-20] MEDS: PAXIL PO SCH (09:43)
[2018-12-20] MEDS: LOTENSIN PO SCH (09:44)
[2018-12-20] MEDS: KLOR-CON PO SCH (09:45)
[2018-12-20] MEDS: BUMEX PO SCH (09:45)
[2018-12-20] MEDS: LACTULOSE PO SCH (09:46)
--- NOTE | 2018-12-20 10:10 | PROGRESS NOTE ---
DATE: 12/20/2018 OBJECTIVE: Vital signs stable with temperature 98.5 degrees, heart rate 98, respirations 20, blood pressure 110/38, and O2 saturation on room air 95%. Chest is clear. Abdomen is soft, but moderately distended. Ascites is slowly increasing. The patient states there is increased pressure in her epigastric area and shortness of breath. PLAN: Rehab. We will discuss with Gastroenterology concerning paracentesis. cc: Ruben Goss MD
[2018-12-20 13:56] VITALS: BP 105/39
--- NOTE | 2018-12-20 15:02 | DISCHARGE SUMMARY ---
ADMISSION DATE: 12/17/2018 DISCHARGE DATE: 12/20/2018 FINAL DIAGNOSES: 1. Hepatic encephalopathy with confusion. 2. Chronic non-alcoholic cirrhosis. 3. Ascites. 4. Anemia. 5. Chronic renal disease, stage II. 6. Hypertension. DISCHARGE MEDICATIONS: Usual medications at home including benazepril 20 mg daily, Bumex 1 mg daily, lactulose 30 mL t.i.d., Protonix 40 mg 1 daily, Paxil 40 mg 1 daily, potassium chloride 10 mEq daily, Requip 1 mg at bedtime, spironolactone 50 mg daily, Keflex 500 mg b.i.d., and tramadol 50 mg q. 6 hours p.r.n. pain. DISPOSITION: To rehab facility, [facility]. HISTORY: This is one of several recent admissions for this 73-year-old white female with recurrent hepatic encephalopathy due to noncompliance of medications. She also has recurrent ascites. The last time she had paracentesis was Sunday of last week. And 4.5 L of fluid was removed. Fluid study showed evidence of mild infection. She was started on Keflex p.o. Dr. Tillman felt that she needed to be on this medication for about 2 weeks. Initial ammonia level was elevated at 146. OTHER LABORATORY: Hemoglobin 10.9, hematocrit 32.1, white blood count 8300 with normal differential. Sodium 136, potassium 4.0. BUN 26, creatinine 1.0, glucose 83, calcium 7.7, total bilirubin 2.9, AST 65, ALT 25, alkaline phosphatase 112, total protein 5.9, albumin 2.3. HOSPITAL COURSE: After a couple of days, her ammonia level decreased to 90. She became more alert and mental status returned to baseline. Dr. Tillman was consulted. She had persistent ascites, but abdominal ultrasound on 12/18 revealed much less fluid than on prior exam. Therapeutic paracentesis was not performed. Discussion was made with Dr. Tillman this afternoon, and he indicated that he did not wish to do paracentesis today, but wait until next week to avoid risk of infection. Discussion was made with [facility] physicians, including Dr. Dickey. Since he had not seen the patient, he referred me to the on-call physician, Dr. Jordan. After discussion with him, decision was made against TIPS procedure because of probable increase in hepatic encephalopathy and also increased risk of infection. Because the procedure would not be done, she was not accepted to be transferred to [facility]. Discussion was made with family and decision made to put her in rehab to continue usual medicines. She had been noncompliant with medications on several recent occasions requiring more rapid repeat hospitalization. She is transferred to rehab when a bed is available either today or tomorrow. cc: Ruben Goss MD
--- NOTE | 2018-12-20 17:34 | GASTROENTEROLOGY PROGRESS NOTE ---
DATE: 12/20/2018 SUBJECTIVE: Patient is awake, alert, today. She is sitting on the side of the bed. She is complaining of some increased abdominal distention. She is asking about having a paracentesis. I believe there are plans to possibly send her to rehab. Dr. Goss is following with that. OBJECTIVE: Vital Signs: Temperature 98.3 degrees, pulse 94, respirations 18, blood pressure 117/41. General: The patient is awake, alert, no acute distress. Abdomen: Distended. Some ascites. Otherwise abdomen is soft. Mild tenderness with palpation. Extremities: Mild edema noted bilaterally. LABORATORY DATA: Hematology: WBC 8.33, hemoglobin 10.9, hematocrit 32.1, MCV 94.4, platelet 191,000. Coagulation: Protime 21.2, INR 1.69, PTT 40.8. Chemistry: Sodium 130, potassium 4.1, chloride 96, CO2 25, BUN 26, creatinine 1.3, glucose 111. Ammonia on 12/19/2018 was 90. ASSESSMENT AND PLAN: 1. Hepatic encephalopathy has improved. 2. Ascites. She had an ultrasound on 12/18/2018 that showed only a small amount of ascites and at that time, paracentesis was not performed due to inadequate amount of fluid. 3. Cirrhosis of the liver. Continue current management. PLAN: Patient unfortunately missed her [facility] appointment due to her confusion and daughter unable to get her out of bed. She was admitted to the hospital instead. Dr. Goss has spoken with [facility]. They currently do not recommend a TIPS procedure which can make encephalopathy worse. They had also recommended trying to lengthen the paracentesis to every 2 weeks. Patient had her last paracentesis a week ago on 12/06/2018. We will currently hold off proceeding with a paracentesis at this time. I have recommend patient follow low-sodium diet. We will continue to follow. She will most likely need paracentesis next week before her discharge. I believe they are working on trying to get her a rehab bed. Patient really does not need to be at home by herself any more. She does not take her medications and ends up back in the hospital. I have spoken with her daughter extensively. We will continue to follow. If she is still in the hospital on Sunday, will follow back on Sunday. Otherwise other GI group will be remote operations producer. I have discussed this case with Dr. Tillman. Dictated by JAMILA Subramanian for Bradley Tillman MD cc: JAMILA Parrish MD Robert Allen, MD
== END 2018-12-20 16:14 | DRG 441 ==
LOC: SUPCPDRO → ED 12:59 → EDIPHOLD 16:41 → 4N 12-18 17:14
PROVIDERS: ADMIT Family Medicine; ATTEND Family Medicine
CPT/HCPCS: 51702; 71010; 71045; 76705; 80048; 80053; 81001; 82140; 82805; 82948; 84484; 85025; 85610; 85730; 87088; 93005; 99285; A9270; XXXXX

== ENCOUNTER 2019-02-03 20:12 | Inpatient (IN) ==
--- NOTE | 2019-02-03 22:02 | EKG Report ---
Test Performed on : 02/03/2019 9:16:34 PM Test Reason : AMS Blood Pressure : / mmHG Vent. Rate : 089 BPM Atrial Rate : 089 BPM P-R Int : 130 ms QRS Dur : 068 ms QT Int : 382 ms P-R-T Axes : 071 022 048 degrees QTc Int : 464 ms Normal sinus rhythm. Low voltage QRS Septal infarct (cited on or before 17-DEC-2018) Abnormal ECG When compared with ECG of 30-JAN-2019 11:11, (Unconfirmed) Questionable change in initial forces of Anteroseptal leads Unconfirmed Result
--- NOTE | 2019-02-03 22:14 | Diag Imaging Result Doc PS360 ---
CHEST-1 VIEW - 02/03/2019 INDICATION: confusion, rule out infection COMPARISON: 01/30/2019 FINDINGS: The lungs are normally expanded and clear. Heart size and mediastinal contours are normal. No pneumothorax or pleural effusion. IMPRESSION: Negative exam. Electronically signed by James Hightower 02/03/2019 10:12 PM
[2019-02-03 22:25] LABS: BASO# 0.04 X1000 (0.0-0.2); BASO% 0.4 % (0.0-0.8); EOS% 0.9 % (0.0-10.0); HEMATOCRIT 38.9 % (37.0-47.0); HEMOGLOBIN 12.9 g/dL (12.0-16.0); IMM GRAN# 0.04 X1000 (0.0-0.04); IMM GRAN% 0.4 % (0.0-0.5); LYMPH# 1.69 X1000 (1.2-3.4); LYMPH% 15.4 % (20.5-51.1); MCH 31.8 PG (27-31); MCHC 33.2 g/dL (33-37); MCV 95.8 FL (81-99); MONO# 1.35 X1000 (0.11-0.59); MONO% 12.3 % (1.7-9.3); MPV 10.2 FL (7.4-10.4); NEUT# 7.76 X1000 (1.4-6.5); NEUT% 70.6 % (42.2-75.2); PLT 155 X1000 (130-400); RBC 4.06 XMIL (4.2-5.4); RDW 15.6 % (11.5-14.5); WBC 10.98 X1000 (4.8-10.8)
[2019-02-03 22:40] LABS: ALB/GLOB RATIO 0.8; ALBUMIN 3.1 g/dL (3.5-5.0); CALCIUM 8.5 mg/dL (8.8-10.2); CREATININE 1.1 mg/dL (0.5-0.9); POTASSIUM 4.7 mmol/L (3.5-5.1); TOTAL BILIRUBIN 3.6 mg/dL (0.20-1.00); TOTAL PROTEIN 7.1 g/dL (6.3-8.3)
[2019-02-04] MEDS ORDERED: D50W SYRINGE IV ONE (00:03)
[2019-02-04] MEDS ORDERED: D5 1/2 NS 1,000 ML IV ONE (01:30)
[2019-02-04] MEDS ORDERED: ZOFRAN IV PRN (01:30)
--- NOTE | 2019-02-04 01:54 | PROVIDER DOCUMENTATION ---
This chart was entered by Blanca Salas Scribe, acting as scribe for Kurt Valadez MD. HPI-General Adult - General Chief Complaint: Altered Mental Status Stated Complaint: AMS Time Seen by Provider: 02/03/19 21:30 Source: family, EMS Allergies/Adverse Reactions: Patient Allergies Allergy/AdvReac Type Severity Reaction Status Date / Time morphine Allergy Severe blind Verified 01/31/19 06:49 buprenorphine HCl * Allergy Intermediate VOMITING Verified 01/31/19 06:49 [From Buprenex] codeine [Codeine] Allergy Intermediate ITCHING Verified 01/31/19 06:49 hydrocodone bitartrate * Allergy Intermediate ITCHING Verified 01/31/19 06:49 [From Lortab] ciprofloxacin [From Cipro] Allergy Mild VOMITING Verified 01/31/19 06:49 ciprofloxacin HCl * Allergy Mild VOMITING Verified 01/31/19 06:49 [From Cipro] metronidazole Allergy Mild vomitng Verified 01/31/19 06:49 propoxyphene HCl * Allergy Mild ITCHING Verified 01/31/19 06:49 [From Lorcet (propoxyphene)] clonazepam Allergy ITCHING Verified 01/31/19 06:49 Home Medications: Home Medication List Medication Instructions Recorded Confirmed Last Taken Type BENAZEpril [Lotensin] 20 mg PO DAILY 12/11/16 01/31/19 01/30/19 08:00 History Pantoprazole [Protonix] 40 mg PO DAILY@0700 12/01/18 01/31/19 01/30/19 08:00 History Paroxetine HCl [Paxil] 40 mg PO DAILY 12/01/18 01/31/19 01/30/19 08:00 History Bumetanide [Bumex] 1 mg PO DAILY #30 tab 12/02/18 01/31/19 01/30/19 08:00 Rx Potassium Chloride E.r. [Klor-Con] 10 meq PO DAILY #30 tab 12/02/18 01/31/19 01/30/19 08:00 Rx Ropinirole [Requip] 1 mg PO QHS PRN 12/06/18 01/31/19 01/15/19 21:00 History CephALEXIN [Keflex] 500 mg PO Q12HR #30 cap 12/13/18 01/31/19 01/30/19 21:00 Rx Lactulose 30 ml PO 0900,1500,2100 #90 udc 12/13/18 01/31/19 01/30/19 21:00 Rx Spironolactone [Aldactone] 50 mg PO DAILY #30 tab 12/13/18 01/31/19 01/30/19 08:00 Rx Promethazine [Phenergan] 25 mg PO Q6H PRN PRN 01/31/19 01/31/19 Unknown History - History of Present Illness -Gen Adult Nature of Presenting Problems: 73 y/o female presents to ED with AMS, weakness, confusion, and lethargy onset this morning. Pt has hx liver cirrhosis and gets paracentesis every 2 weeks. Last paracentesis was performed on 01/31. PT reported to daughter that pt is unable to walk today. Daughter states she is usually able to walk. Pt is alert and nontoxic. Location of Pain/Injury: reports: none Pain Radiation: reports: no radiation Quality of Pain: reports: none Severity: reports: mild Onset/Duration: reports: this morning Timing: reports: still present Context/Activities at Onset: reports: none Modifying Factors: improves with: nothing Associated Symptoms: reports: weakness, trouble walking, other (confusion; le thargy; AMS) Similar Symptoms Previously?: No Recently seen or treated by another doctor?: No Review of Systems - Adult - REVIEW OF SYSTEMS - ADULT Constitutional: reports: other (weakness; decreased ability to walk; confused; AMS; lethargic). denies: chills, fever Eyes: reports: no symptoms reported Ears, Nose, Mouth & Throat: reports: no symptoms reported Cardiovascular: denies: chest pain, palpitations Respiratory: denies: cough, shortness of breath Gastrointestinal: denies: abdominal pain, diarrhea, nausea, vomiting Genitourinary: reports: no symptoms reported Musculoskeletal: denies: back pain, joint pain Integumentary: reports: no symptoms reported Neurological: reports: other (weakness; decreased ability to walk; confused; AMS; lethargic). denies: dizziness/vertigo, seizure Psychiatric: reports: no symptoms reported Endocrine: reports: no symptoms reported Hematologic/Lymphatic: reports: no symptoms reported Allergic/Immunologic: reports: no symptoms reported All Other Systems: Reviewed and Negative Past History - Adult - PAST MEDICAL HISTORY-ADULT Review of Records: reports: Old Records Reviewed, Nursing Assessment Review, Medications Reviewed Major Childhood Illnesses: reports: denies history Cardiovascular: reports: HTN Respiratory: reports: denies history Gastrointestinal: reports: diverticulosis, GERD, liver disease (cirrhosis), oth er (esophgeal varices) Obstetrical/Gynecological: reports: denies history Genitourinary: reports: kidney disease, kidney stones, other (IGA) Musculoskeletal: reports: arthritis, fibromyalgia Neurological: reports: denies history Psychiatric: reports: denies history Endocrine/Immune: reports: denies history Other Conditions: reports: denies history - PRIOR SURGERIES/PROCEDURES Surgical/Procedure History: reports: appendectomy, cholecystectomy, hysterectomy , BTL, orthopedic (extremity) (L shoulder), back/neck (back x2), other (lithr otripsy) - IMMUNIZATION STATUS Childhood Immunizations: See Nurse Assessment Flu Vaccine: See Nurse Assessment - FAMILY HISTORY Family History: reviewed, not pertinent - SOCIAL HISTORY Smoking: quit greater than 1 year Substance Use: none/never Alcohol Use Frequency: never Living Situation: family Physical Exam-General - PHYSICAL EXAM-ADULT Exam Limited by: AMS Initial Vital Signs Reviewed: Yes - CONSTITUTIONAL General Appearance: alert, no apparent distress, obese, lethargic, other (pt does not give much history; difficult to arouse; curses and yells when aroused; falls asleep quickly after arousal) - EYES Eyes: PERRL/EOMI, pink conjunctivae - HEAD, EARS, NOSE, MOUTH & THROAT HENMT: normocephalic/atraumatic, moist mucous membranes, normal ENT inspection - NECK Neck: non-tender, full range of motion - RESPIRATORY Respiratory: chest non-tender, lungs clear, normal breath sounds - CARDIOVASCULAR Cardiovascular: normal peripheral pulses, regular rate, rhythm - GASTROINTESTINAL (ABDOMEN) Abdominal Exam: normal bowel sounds, non tender, soft, other (clear fluid pouring from paracentesis site in R lower abdomen) - MUSCULOSKELETAL Back Exam: normal inspection, no CVA tenderness, no vertebral tenderness Extremity: normal range of motion, non-tender - SKIN Integumentary: normal color, warm/dry - NEUROLOGIC Neurologic: other (pt does not give much history; difficult to arouse; curses and yells when aroused; falls asleep quickly after arousal) - PSYCHIATRIC Psych/Mental Status: other (pt does not give much history; difficult to arouse; curses and yells when aroused; falls asleep quickly after arousal) Progress - PLAN OF CARE/RESULTS Progress/Plan/Lab Results: Vital Signs - 8 hr 02/03/19 20:50 Temperature 98.6 F Pulse Rate 89 Respiratory Rate 18 Blood Pressure 132/58 O2 Sat by Pulse Oximetry 95 Laboratory Results - last 24 hr 02/03/19 21:26 POC Glucose 67 L Orders Category Date Time Status cxr [CHEST-1 VIEW] [RAD] Stat Exams 02/03/19 21:51 Completed AMMONIA [CHEM] Stat Lab 02/03/19 22:10 Ordered BLOOD CULTURE [BLDCUL] Stat Lab 02/03/19 22:02 Uncollected CBC WITH ELECTRONIC DIFF [HEME] Stat Lab 02/03/19 22:04 Results COMPREHENSIVE METABOLIC PANEL [CHEM] Stat Lab 02/03/19 22:04 Received LACTATE, PLASMA [CHEM] Stat Lab 02/03/19 22:02 Uncollected URINALYSIS W/POSS RFLX CULT [URINALYSIS] Stat Lab 02/03/19 21:50 Uncollected EKG [EKG] Stat Ther 02/03/19 21:53 Draft Laboratory Tests 02/03/19 02/03/19 02/03/19 21:26 22:04 22:04 WBC 10.98 H RBC 4.06 L Hgb 12.9 Hct 38.9 MCV 95.8 MCH 31.8 H MCHC 33.2 RDW Std Deviation 15.6 H Plt Count 155 MPV 10.2 Immature Gran % (Auto) 0.4 Neut % (Auto) 70.6 Lymph % (Auto) 15.4 L [place] % (Auto) 12.3 H Eos % (Auto) 0.9 Baso % (Auto) 0.4 Immature Gran # (Auto) 0.04 Neut # (Auto) 7.76 H Lymph # (Auto) 1.69 [place] # (Auto) 1.35 H Eos # (Auto) 0.10 Baso # (Auto) 0.04 Sodium 141 Potassium 4.7 Chloride 100 Carbon Dioxide 27 Anion Gap 14 BUN 18 Creatinine 1.1 H Estimated GFR/1.73 m2 49 BUN/Creatinine Ratio 16 Glucose 77 POC Glucose 67 L Calculated Osmolality 282 Calcium 8.5 L Total Bilirubin 3.60 H AST 51 H ALT 19 Alkaline Phosphatase 99 Ammonia Total Protein 7.1 Albumin 3.1 L Globulin 4.0 Albumin/Globulin Ratio 0.8 02/03/19 22:43 WBC RBC Hgb Hct MCV MCH MCHC RDW Std Deviation Plt Count MPV Immature Gran % (Auto) Neut % (Auto) Lymph % (Auto) [place] % (Auto) Eos % (Auto) Baso % (Auto) Immature Gran # (Auto) Neut # (Auto) Lymph # (Auto) [place] # (Auto) Eos # (Auto) Baso # (Auto) Sodium Potassium Chloride Carbon Dioxide Anion Gap BUN Creatinine Estimated GFR/1.73 m2 BUN/Creatinine Ratio Glucose POC Glucose Calculated Osmolality Calcium Total Bilirubin AST ALT Alkaline Phosphatase Ammonia 218 H Total Protein Albumin Globulin Albumin/Globulin Ratio Result Diagrams: 02/03/19 22:04 02/03/19 22:04 - EKG 1 Time of EKG reading by physician:: 21:17 EKG Read and Signed by:: Kurt Valadez EKG Interpretation (*Must complete 3 of following elements*): Abnormal Rate: 89 Rhythm: NSR [place]: normal QRS: other (low voltage QRS) CO Interval: normal ST Wave: normal - XRAY 1 XRAY Study: Chest Impression: See EMR Report ([facility] - [address] [place] [address] [place], [place] [id number] [facility] - [address] [place] [address] Department of Imaging Patient: BI DOWLING Date: 02/03/19#: [id number] : 1945DM [facility] [id number] Age/Sex: 73/FRoom/Bed: Loc: ED Ordering Physician: Kurt Valadez MD Family Physician: Ruben Goss MD Reason for Procedure: confusion, rule out infection Signed CHEST-1 VIEW - 02/03/2019 INDICATION: confusion, rule out infection COMPARISON: 01/30/2019 FINDINGS: The lungs are normally expanded and clear. Heart size and mediastinal contours are normal. No pneumothorax or pleural effusion. IMPRESSION: Negative exam. Electronically signed by James Hightower 02/03/2019 10:12 PM 02/03/192211 Interpreting Physician: James Hightower MD Dictated Date/Time: 02/03/192210 cc: Kurt Valadez MD; Ruben Goss MD) - CONSULTS/PCP/HOSPITALIST Notification #1 *Consult/PCP/Hospitalist*: Dr. Luis Time Discussed: 22:00 Reason/Comments: AMS Consult Disposition: Admit Departure - Departure Date of Disposition Decision: 02/03/19 Time of Disposition Decision: 22:17 DIAGNOSIS: Hepatic encephalopathy Altered mental status Qualifiers: Altered mental status type: unspecified Qualified Code(s): R41.82 - Altered mental status, unspecified Disposition: ADMITTED INPATIENT 09 Certified Medical Emergency: Emergent Condition: Stable - Critical Care Note This patient required my direct & personal management of CC.: No Attestation - Physician/ AMBER Attestation Patient care was provided by Advanced Practice Provider:: No The physician spent face to face time with patient:: Yes Advanced Practice Provider documentation review:: Supervising physician onsite and consulted in the evaluation and care of this patient. The physician did have a face to face encounter with the patient. This chart was documented by the indicated scribe, (Blanca Salas, Steve) and accurately reflects the services I performed and decisions made by me, Kurt Delgado MD, as attested by the provider's signature.
[2019-02-04 07:12] LABS: BASO# 0.04 X1000 (0.0-0.2); BASO% 0.3 % (0.0-0.8); EOS# 0.14 X1000 (0.0-0.7); EOS% 1.2 % (0.0-10.0); HEMATOCRIT 34.9 % (37.0-47.0); HEMOGLOBIN 11.3 g/dL (12.0-16.0); IMM GRAN# 0.03 X1000 (0.0-0.04); IMM GRAN% 0.3 % (0.0-0.5); LYMPH# 2.26 X1000 (1.2-3.4); LYMPH% 19.2 % (20.5-51.1); MCH 31.3 PG (27-31); MCHC 32.4 g/dL (33-37); MCV 96.7 FL (81-99); MONO% 12.7 % (1.7-9.3); MPV 10.4 FL (7.4-10.4); NEUT# 7.83 X1000 (1.4-6.5); NEUT% 66.3 % (42.2-75.2); PLT 140 X1000 (130-400); RBC 3.61 XMIL (4.2-5.4); RDW 15.5 % (11.5-14.5)
[2019-02-04 07:29] LABS: CALCIUM 8.9 mg/dL (8.8-10.2); CREATININE 1.1 mg/dL (0.5-0.9); POTASSIUM 4.8 mmol/L (3.5-5.1)
--- NOTE | 2019-02-04 07:59 | HISTORY AND PHYSICAL ---
PRIMARY CARE PHYSICIAN: Dr. Ruben Goss. CHIEF COMPLAINT: Altered mental status. HISTORY OF PRESENTING ILLNESS: A 73-year-old elderly female with a history of hepatic encephalopathy, end-stage liver disease, cirrhosis and IgA nephropathy, who had presented to emergency department due to patient being altered. As per patient's daughter, she was getting more confused over the past day or so. The patient was apparently scheduled to have a TIPS procedure at [facility]; however, her appointment is not until later this week or so. She was seen in the ED. She was altered and, due to her presenting symptoms, it was thought that she would need admission for further management. At the time of my examination, the patient is a poor historian, and most of the history is obtained from the daughter and previous records. PAST MEDICAL HISTORY: Includes cirrhosis, end-stage liver disease, hypertension, fibromyalgia IgA nephropathy. PAST SURGICAL HISTORY: Cholecystectomy, back surgery, shoulder surgery x2, hysterectomy. ALLERGIES: Buprenex, morphine, Cipro and metronidazole. CURRENT MEDICATIONS: Include Lotensin 20 mg p.o. daily, Bumex 1 mg p.o. daily, lactulose 30 mL p.o. t.i.d., Protonix, pantoprazole 40 mg p.o. daily, Paxil 40 mg p.o. daily, Requip 1 mg p.o. at bedtime, spironolactone 150 mg p.o. daily. SOCIAL HISTORY: She is a former smoker. No history of alcohol or illicit drug use. FAMILY HISTORY: Positive for coronary artery disease in her father. REVIEW OF SYSTEMS: Unable to obtain due to patient being altered. PHYSICAL EXAMINATION: GENERAL: The patient is resting comfortably, but is altered. VITAL SIGNS: Temperature 98.6 degrees, pulse 89, respiration 18, blood pressure 132/58. HEENT: Atraumatic, normocephalic. NECK: No masses. CHEST: Clear to auscultation. CARDIOVASCULAR: Regular rate and rhythm. ABDOMEN: Soft. Positive bowel sounds. EXTREMITIES: No edema. NEUROLOGIC: She is awake and arousable, but altered. : No bladder distention. SKIN: Warm. LABORATORIES AND STUDIES: WBCs 10.98 hemoglobin 12.9, hematocrit 38.6, platelets 155. Sodium 141, potassium 4.7, chloride 100, CO2 27. BUN is 18, creatinine is 1.1, glucose is 77. Ammonia is 218. ASSESSMENT: This is a 73-year-old elderly female with a history of end-stage liver disease, cirrhosis, hypertension, who was brought to the emergency department due to patient being altered. She was evaluated in the ED. She was found to have elevated ammonia level and suspected hepatic encephalopathy. Subsequently, she will require admission for further management. ASSESSMENT: 1. Altered mental status probably secondary to #2. 2. Hepatic encephalopathy. 3. End-stage renal liver disease, cirrhosis. 4. Hypertension. PLAN: 1. We will admit patient to medical floor with telemetry. 2. Continue with neuro checks. 3. Start patient on lactulose. 4. We will consult substitute school nurse. 5. Monitor blood pressure closely. 6. Put patient on DVT prophylaxis SCD. 7. We will continue to follow and reassess. Make further recommendation based on patient's clinical course. cc: MD Ruben Cunningham MD
[2019-02-04] MEDS: LACTULOSE PO SCH ×3 (08:48→20:27)
[2019-02-04] MEDS: STERILE WATER INJ. INJ PRN (10:27)
[2019-02-04] MEDS: GEODON IM PRN ×2 (10:27→20:25)
--- NOTE | 2019-02-04 12:21 | PROGRESS NOTE ---
DATE: 02/04/2019 VITAL SIGNS: Stable with temperature 98.3 degrees, heart rate 86, respirations 18, blood pressure 137/49, O2 saturation on room air 95%. SUBJECTIVE: The patient is a little agitated and has urinated and had a bowel movement and is laying on top of it. Nurses have been notified, assist cleaning up. She is confused. Aletha is a 73-year-old white female with end-stage liver disease and nephropathy, who was admitted by hospitalist during the night. Ammonia level was 218. Lactate was 4.3. BUN 22, creatinine 1.1. Albumin low at 3.1. She has ascites, but not as much as often times she has. Lungs are clear to auscultation. She is unable to answer questions. PLAN: Supportive care, lactulose, GI consultation. Blood cultures were done. cc: Ruben Goss MD
[2019-02-04] MEDS ORDERED: NON-FORMULARY MED ONE (15:30)
[2019-02-04] MEDS: D5 1/2 NS 1,000 ML IV SCH (19:09)
--- NOTE | 2019-02-04 20:41 | GASTROENTEROLOGY CONSULTATION ---
DATE: 02/04/2019 REASON FOR CONSULTATION: Altered mental status, cirrhosis of the liver. HISTORY OF PRESENT ILLNESS: This is a 73-year-old female, well known to our practice followed for cirrhosis of the liver and end-stage liver disease. Patient is often noncompliant with her medications. She came into the office last week complaining of abdominal swelling. We had scheduled her for an outpatient paracentesis that was done on 01/31/2019 at [facility] as an outpatient. She had 5.4 L removed. Patient currently presented with altered mental status. At the time my evaluation patient was not alert or oriented. She was agitated. She was not able to assist with any review of systems. There was no family at the bedside. I had spoken with the nurse. As noted, patient is often noncompliant so I am not sure if she has been taking her lactulose as prescribed, I do know at the previous office visit she had not been taking Xifaxan as recommended. PAST MEDICAL HISTORY: 1. Cirrhosis of the liver/end-stage liver disease. 2. Hypertension. 3. Fibromyalgia. 4. IgA nephropathy. PAST SURGICAL HISTORY: Cholecystectomy, back surgery, shoulder surgery, hysterectomy, recent paracentesis on 01/31/2019. ALLERGIES: Morphine causing blindness, Buprenex causing vomiting, codeine causing itching, Lortab itching, Cipro vomiting, metronidazole vomiting, Lorcet itching, clonazepam itching. HOME MEDICATIONS: Lotensin 20 mg daily, Bumex 1 daily, lactulose 30 mL 3 times a day, Protonix 40 mg daily, Paxil 40 mg daily, potassium 10 mEq daily, Phenergan 25 mg as needed, Aldactone 50 mg daily. SOCIAL HISTORY: Former smoker, no alcohol use. Patient was living alone with assistance from the daughter. I am not sure where she is currently residing at at this present time. REVIEW OF SYSTEMS: Per history of present illness. Unable to fully obtain because patient is not alert or oriented to help with review of systems, there is no family at the bedside. PHYSICAL EXAMINATION: Vital Signs: Temperature 97.9 degrees, pulse 88, respirations 16, blood pressure 154/58. General: Patient is with eyes closed. Nurses are working on restarting her IV. Patient is agitated and moving around in the bed. She does not follow commands. She did not open eyes to my stimulus or communicate at all. HEENT: Normocephalic, atraumatic. Pupils equal, round, reactive to light. Sclerae nonicteric. Cardiovascular: Regular rate and rhythm. Respiratory: Lung sounds essentially clear. Abdomen: With some ascites otherwise soft, positive bowel sounds. She does have a dressing from her recent paracentesis to the right abdomen with some drainage noted on the dressing. Extremities: No lower extremity edema noted. Neurologic: Patient is not alert, she is with eyes closed and did not follow commands. DIAGNOSTIC RESULTS: Laboratory. Hematology. WBC 11.80, hemoglobin 11.3, hematocrit 34.9, MCV 96.7, platelet 140,000. Chemistry sodium 139, potassium 4.8, chloride 102, CO2 25, BUN 22, creatinine 1.1, glucose 83, calcium 8.9, total bilirubin 3.60, AST 51, ALT 19, alkaline phosphatase 99, ammonia 218, albumin 3.1. IMAGING: Chest x-ray showed negative exam, no pneumothorax or pleural effusion. ASSESSMENT AND PLAN: 1. Altered mental status/hepatic encephalopathy. 2. End-stage renal disease/cirrhosis of the liver. 3. Ascites with recent paracentesis with 5.4 L of fluid removed. Continue to monitor patient. She has been unable to take her oral lactulose. We will give a lactulose enema. Further plans will be made according to response. I have discussed this case with Dr. Tillman. Further plans will be made as needed. Thank you for this consultation. Dictated by JAMILA Subramanian for Bradley Tillman MD cc: JAMILA Parrish MD Robert Allen, MD
[2019-02-05] MEDS: D5 1/2 NS 1,000 ML IV SCH ×2 (06:03→10:08)
[2019-02-05 08:43] LABS: ALB/GLOB RATIO 0.8; ALBUMIN 2.7 g/dL (3.5-5.0); CALCIUM 8.6 mg/dL (8.8-10.2); CREATININE 1.1 mg/dL (0.5-0.9); POTASSIUM 4.2 mmol/L (3.5-5.1); TOTAL BILIRUBIN 3.64 mg/dL (0.20-1.00); TOTAL PROTEIN 6.1 g/dL (6.3-8.3)
[2019-02-05] MEDS: LACTULOSE PO SCH ×2 (10:09→14:41)
--- NOTE | 2019-02-05 10:40 | PROGRESS NOTE ---
DATE: 02/05/2019 VITAL SIGNS: Temperature 97.6 degrees, heart rate 98, respirations 16, blood pressure 154/59, O2 saturation on room air 96%. I and O only 80 mL IV, and no p.o. intake. LABORATORY: Hemoglobin 11.3, hematocrit 34.9, white blood count 27515. BUN 22, creatinine 1.1, glucose 114, calcium 8.6, total bilirubin 3.6, AST 52, ALT 18, alkaline phosphatase 90, ammonia 95, and plasma lactate 0.8. Blood cultures no growth. Patient is still somnolent, and not answering questions. Telemetry is stable with no arrhythmia. Rhythm is sinus. GI recommendations are for lactulose enema and continued observation. PLAN: Continue supportive care, Cristhian trammell agitation. Hopefully, she will be able to take p.o. soon. Ammonia level is down from 218 to 95. cc: Ruben Goss MD
[2019-02-05] MEDS ORDERED: MISC. PHARMACY COMMUNICATION SCH (14:45)
[2019-02-05] MEDS ORDERED: NON-FORMULARY BULK MED PR ONE (15:00)
--- NOTE | 2019-02-05 15:10 | GASTROENTEROLOGY PROGRESS NOTE ---
DATE: 02/05/2019 The patient was resting. With increased stimulus, she did open her eyes and arouse. She did not communicate verbally. She is a little agitated when awake, per nurse report, she is still not swallowing oral medications or liquids. OBJECTIVE: Vital Signs: Temperature 98.1 degrees, pulse 99, respirations 16, blood pressure 161/60. General: Patient was asleep but aroused and opened her eyes. She did not communicate verbally. Some agitation noted. She has had Geodon given as needed for agitation. LABORATORY: Hematology: WBC 11.80, hemoglobin 11.3, hematocrit 34.9, MCV 96.7, platelet 140,000. Chemistry: Sodium 142, potassium 4.2, chloride 104, CO2 26, BUN 22, creatinine 1.1, glucose 114, calcium 8.6, total bilirubin 3.64, AST 52, ALT 18, alkaline phosphatase 90, ammonia 95. Ammonia level on 02/03 was 218. ASSESSMENT AND PLAN: 1. Hepatic encephalopathy. The patient is starting to arouse and open her eyes, although not alert and oriented yet. She has been unable to tolerate oral lactulose. Yesterday we gave her a lactulose enema. Ammonia level is 95 today. I will discuss this case with Dr. Tillman. We may repeat the lactulose enema today. Further plans will be made according to her progress. I will discuss this case with Dr. Tillman. Dictated by JAMILA Subramanian for Bradley Tillman MD cc: JAMILA Parrish MD Robert Allen, MD MTDD
[2019-02-05] MEDS ORDERED: LACTULOSE MISC SCH (17:00)
[2019-02-05] MEDS: GEODON IM PRN (20:58)
[2019-02-05] MEDS: STERILE WATER INJ. INJ PRN (20:59)
--- NOTE | 2019-02-06 08:14 | PROGRESS NOTE ---
DATE: 02/06/2019 OBJECTIVE: Vital signs stable with temperature 98.3 degrees, heart rate 91, respirations 16, blood pressure 118/46, O2 saturation on nasal oxygen 93%. I and O: No p.o. intake. The patient is a little more alert, but refusing any p.o. liquids or solid food. There is no abdominal pain. Chest is clear. PLAN: Continue supportive care. Lab will be rechecked tomorrow morning. cc: Ruben Goss MD
--- NOTE | 2019-02-06 16:55 | GASTROENTEROLOGY PROGRESS NOTE ---
DATE: 02/06/2019 SUBJECTIVE: Ms Fernandez was resting comfortably, however she was woken up easily. She was conscious and alert, identifying me. She also identified that she was in the hospital. She answered questions appropriately. She denied any abdominal pain or abdominal cramp. She appeared to be more lucid today. OBJECTIVE: Vital Signs: Temperature 98.6, pulse 88 per minute, breathing 18, blood pressure 114/64. Abdomen is full, soft, nontender. Abdomen is slightly distended. No asterixis noted. LABORATORIES: Reviewed. IMPRESSION: 1. Hepatic encephalopathy, better. 2. 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 3. Ascites refractory to diuretics. 4. Other medical problems. RECOMMENDATION: I would resume all of her medications including lactulose and Xifaxan for encephalopathy. Since her ascites has become refractory to diuretics, she will need either regular paracentesis or we can put a catheter that could be used as a drain to tap her ascites off and on when needed. In the meantime, continue low two gram salt diet and I would stop her IV fluids. Consulted Dr. Mcbride to consider placing the catheter if she is agreeable. cc: MD Ruben Ferrell MD
[2019-02-06] MEDS: D5 1/2 NS 1,000 ML IV SCH ×2 (22:18→22:30)
[2019-02-07 08:19] LABS: BASO# 0.03 X1000 (0.0-0.2); BASO% 0.3 % (0.0-0.8); EOS# 0.24 X1000 (0.0-0.7); EOS% 2.8 % (0.0-10.0); HEMATOCRIT 29.4 % (37.0-47.0); HEMOGLOBIN 9.8 g/dL (12.0-16.0); LYMPH# 1.18 X1000 (1.2-3.4); LYMPH% 13.6 % (20.5-51.1); MCH 32.1 PG (27-31); MCHC 33.3 g/dL (33-37); MCV 96.4 FL (81-99); MONO# 1.49 X1000 (0.11-0.59); MONO% 17.1 % (1.7-9.3); MPV 10.3 FL (7.4-10.4); NEUT# 5.76 X1000 (1.4-6.5); NEUT% 66.2 % (42.2-75.2); PLT 137 X1000 (130-400); RBC 3.05 XMIL (4.2-5.4); RDW 15.3 % (11.5-14.5)
--- NOTE | 2019-02-07 08:23 | PROGRESS NOTE ---
DATE: 02/07/2019 VITAL SIGNS: Temperature 97.9 degrees, heart rate 87, respirations 16, blood pressure 132/96, O2 saturation on nasal oxygen 98%. SUBJECTIVE: The patient is mildly confused, but mental status is almost back to baseline. Attempts will be made to ambulate her today. Her usual p.o. medication is restarted. Laboratory reports are pending. Blood sugar this morning was 117. PLAN: Discharge home when eating and ambulating. cc: Ruben Goss MD
[2019-02-07 08:35] LABS: ALB/GLOB RATIO 0.6; ALBUMIN 2.2 g/dL (3.5-5.0); CALCIUM 8.1 mg/dL (8.8-10.2); POTASSIUM 3.3 mmol/L (3.5-5.1); TOTAL BILIRUBIN 3.65 mg/dL (0.20-1.00); TOTAL PROTEIN 5.9 g/dL (6.3-8.3)
[2019-02-07] MEDS ORDERED: KLOR-CON PO SCH (09:00)
[2019-02-07] MEDS: ALDACTONE PO SCH (10:20)
[2019-02-07] MEDS: LACTULOSE PO SCH ×3 (10:20→21:42)
[2019-02-07] MEDS: PAXIL PO SCH (10:20)
[2019-02-07] MEDS: D5 1/2 NS 1,000 ML IV SCH ×3 (10:21→22:30)
[2019-02-07] MEDS: BUMEX PO SCH (10:21)
[2019-02-07] MEDS: KLOR-CON PO SCH ×2 (13:47→17:54)
[2019-02-08] MEDS: PROTONIX PO SCH (06:06)
--- NOTE | 2019-02-08 08:08 | GENERAL SURGERY CONSULTATION ---
DATE: 02/07/2019 REASON FOR CONSULTATION: Management of ascites. HISTORY OF PRESENT ILLNESS: This is a 73-year-old elderly female with known chronic end-stage liver disease secondary to fatty liver, who has been having worsening fluid buildup in her abdomen. It has required frequent paracentesis. She has had hepatic encephalopathy recently. She is not a candidate for the TIPS procedure and I have been asked to see her to consider a PleurX catheter placement to manage her symptoms palliatively. The patient is a poor historian. Most of the history is obtained from the chart and from Dr. Hurt. PAST MEDICAL HISTORY: End-stage liver disease, hypertension, IgA nephropathy, fibromyalgia. PAST SURGICAL HISTORY: Open cholecystectomy, back surgery, shoulder surgery x2, hysterectomy. ALLERGIES: Buprenex, morphine, Cipro, Flagyl. HOME MEDICATIONS: Include Lotensin, Bumex, lactulose, Protonix, pantoprazole, Paxil, Requip, spironolactone. The patient is noted to be quite noncompliant. SOCIAL HISTORY: She is a former smoker. No history of alcohol or illicit drug use. FAMILY HISTORY: Positive for coronary artery disease. REVIEW OF SYSTEMS: Unable to obtain. PHYSICAL EXAMINATION: Vital Signs: Temperature 98.8 degrees, pulse 87, respirations 17, blood pressure 151/51, O2 saturation 100%. General: She is a frail elderly female who looks her stated age. She is in no acute distress. HEENT: Normocephalic, atraumatic. Extraocular muscles are intact. Pupils equal, round, reactive to light. Sclerae anicteric. Neck: Supple. No thyromegaly. CV: Regular rate and rhythm. Respiratory: Bilateral equal breath sounds. No work of breathing. GI: Soft, protuberant, nontender. No organomegaly or mass. She has a well- healed right upper quadrant incision and lower abdominal incision. Extremities: No clubbing or cyanosis. Skin: She has multiple ecchymoses over all extremities. Neuro: She is awake and alert. She is oriented to her name and place but not time. LABORATORY: White blood cell count 8.7, hemoglobin 9.8, hematocrit 29, platelet count 137,000. Electrolytes reviewed and notable for bilirubin of 3.6. Ammonia level is 123. ASSESSMENT AND PLAN: A 73-year-old female with refractory ascites secondary to end-stage liver disease. She is failing medical management. She has been on diuretics for some time. She is also notoriously noncompliant. We certainly could consider placing a peritoneal drain catheter for periodic drainage. I do not expect the patient be able to manage this on her own. She will need chronic home health for this. Perhaps a family member may help her out. I discussed the risks and benefits with her including bleeding, infection, injury to the abdominal viscera, leakage around the catheter or through the incisions and other imponderables. I think she understands, she does want to proceed. I would like to talk to her daughter, but her she was unavailable today by phone. In addition I will probably have to give her some fresh frozen plasma to temporarily correct her coagulopathy prior to surgery. We could set this up for next week. I will reassess her on Sunday. cc: MD Ruben Gupta MD
[2019-02-08] MEDS: BUMEX PO SCH (08:31)
[2019-02-08] MEDS: PAXIL PO SCH (08:31)
[2019-02-08] MEDS: ALDACTONE PO SCH (08:31)
[2019-02-08] MEDS: KLOR-CON PO SCH ×3 (08:31→18:33)
[2019-02-08] MEDS: LACTULOSE PO SCH ×3 (08:31→21:09)
[2019-02-08] MEDS: D5 1/2 NS 1,000 ML IV SCH (12:26)
--- NOTE | 2019-02-08 19:43 | GENERAL SURGERY CONSULTATION ---
DATE: 02/08/2019 REQUESTING PHYSICIAN: Dr. Goss. REASON FOR CONSULTATION: Placement of abdominal catheter for paracentesis. HPI: A 73-year-old female with a history hepatic encephalopathy, end-stage liver disease, cirrhosis, IgA nephropathy, who presented to emergency department due to being altered mental status. She apparently been getting more confused every day and initially scheduled to go down to [facility] for TIPS procedure. She was admitted on 02/03/2019. Her neurologic status apparently improved per previous notes. There is no family at the bedside to give further information. PAST MEDICAL HISTORY: 1. Includes cirrhosis. 2. End-stage liver disease. 3. Hypertension. 4. Fibromyalgia. 5. IgA nephropathy. PAST SURGICAL HISTORY: Includes cholecystectomy, back surgery, shoulder surgery x2, hysterectomy. ALLERGIES: Reviewed. CURRENT MEDICATIONS: Reviewed. SOCIAL: Former smoker. FAMILY HISTORY: Positive for coronary artery disease. REVIEW OF SYSTEMS: A full 10 point review of systems obtained negative except as specified in HPI. PHYSICAL EXAMINATION: Vital Signs: Patient is currently afebrile. Vital signs are stable. General: No acute distress. Appears to be alert. HEENT: Normocephalic, atraumatic. Pupils equal, round, reactive to light. Mucous membranes moist. Oropharynx benign. Neck: Supple. Trachea midline. Cardiovascular: Regular rate and rhythm. Lungs: Grossly clear. Abdomen: Protuberant but soft. No peritoneal signs. Extremities: Moves all extremities. Neurologic: Grossly intact. Skin: No signs of jaundice. Vascular: All extremities perfused. LABORATORY: None this morning as of yet, reviewed labs from yesterday. IMAGING: None recent. ASSESSMENT/PLAN: 73-year-old female with end-stage liver disease that requires frequent paracentesis. Frequent paracentesis. At this time discussed with patient the option of abdominal catheter versus frequent paracentesis, she did not have a preference either way. She has been referred to [facility] for possible transjugular intrahepatic portosystemic shunt procedure but if she has hepatic encephalopathy they may not want to do it. Her ammonia level actually has been increasing. This may be a contraindication to the transjugular intrahepatic portosystemic shunt procedure. At this point may need to have family at the bedside to discuss it kind of further about options given her potential for altered mental status and no immediate plans to do intervention we could even see her as an outpatient but at this point we will continue current treatment until we have further opportunity to discuss with the family, the patient about her options. cc: MD Ruben Celestin MD
--- NOTE | 2019-02-08 21:58 | PROGRESS NOTE ---
DATE: 02/08/2019 SUBJECTIVE: I am seeing Ms Fernandez for Dr. Goss who is off this weekend. The patient is stable. No complaints. OBJECTIVE: Vital Signs: Afebrile. Pulse 86, respirations 20, blood pressure 165/69, O2 saturation on 2 L nasal cannula 93 to 99 percent. Cardiovascular: RRR. Lungs: Overall clear. Abdomen: Very protuberant. Ascites noted. Extremities: No major edema. Neurologic: Alert, talkative. No complaints. Appears at baseline. LABORATORIES: No labs done today. Blood sugars in the low 100s primarily. ASSESSMENT: 1. Hepatic encephalopathy. 2. Cirrhosis of the liver and ascites refractory to diuretics. 3. Hypertension. 4. Fibromyalgia. 5. IgA nephropathy. PLAN: Continue present treatments with lactulose and diuretics of Bumex and Aldactone. Potassium supplementation. She is also on Paxil and p.r.n. Geodon. Repeat labs to include BMP, CBC and ammonia level in the morning along with magnesium then. cc: MD Ruben Mendez MD MTDD
[2019-02-09] MEDS: D5 1/2 NS 1,000 ML IV SCH ×2 (00:23→13:15)
[2019-02-09] MEDS: PROTONIX PO SCH (06:22)
[2019-02-09 07:53] LABS: AGAP 13; BASO# 0.03 X1000 (0.0-0.2); BASO% 0.3 % (0.0-0.8); BUN 14 mg/dL (8-22); CALCIUM 7.7 mg/dL (8.8-10.2); CHLORIDE 99 mmol/L (98-107); COSMO 267; CREATININE 0.9 mg/dL (0.5-0.9); EOS# 0.28 X1000 (0.0-0.7); EOS% 2.7 % (0.0-10.0); ESTIMATED GFR > 60; GLUCOSE 95 mg/dL (70-104); HEMATOCRIT 29.3 % (37.0-47.0); HEMOGLOBIN 9.8 g/dL (12.0-16.0); IMM GRAN# 0.02 X1000 (0.0-0.04); IMM GRAN% 0.2 % (0.0-0.5); LYMPH# 1.48 X1000 (1.2-3.4); LYMPH% 14.3 % (20.5-51.1); MAGNESIUM 1.3 mg/dL (1.5-2.7); MCH 31.6 PG (27-31); MCHC 33.4 g/dL (33-37); MCV 94.5 FL (81-99); MONO# 1.94 X1000 (0.11-0.59); MONO% 18.7 % (1.7-9.3); MPV 10.3 FL (7.4-10.4); NEUT# 6.62 X1000 (1.4-6.5); NEUT% 63.8 % (42.2-75.2); PLT 134 X1000 (130-400); POTASSIUM 3.2 mmol/L (3.5-5.1); RDW 15.1 % (11.5-14.5); SODIUM 133 mmol/L (136-145); TCO2 21 mmol/L (25-35); WBC 10.37 X1000 (4.8-10.8)
[2019-02-09] MEDS: KLOR-CON PO SCH ×3 (09:53→18:40)
[2019-02-09] MEDS: ALDACTONE PO SCH (09:53)
[2019-02-09] MEDS: LACTULOSE PO SCH ×4 (09:53→20:56)
[2019-02-09] MEDS: BUMEX PO SCH (09:53)
--- NOTE | 2019-02-09 10:58 | GENERAL SURGERY PROGRESS NOTE ---
DATE: 02/09/2019 At this time, the patient seems to be confused per the nursing staff over the night. Unsure if she can make a decision on which route she wants to go with paracentesis versus indwelling catheter. Will need to discuss with the family. Will likely allow Dr. Mcbride to discuss with the family on Sunday, but if the family comes by, will discuss with them the risks and benefits so they can at least discuss it. Otherwise, continue supportive care. cc: MD Ruben Celestin MD
[2019-02-09] MEDS: GEODON IM PRN (13:08)
[2019-02-09] MEDS ORDERED: POTASSIUM CHLORIDE 40 MEQ in D5 1/2 NS 1,000 ML IV SCH (13:19)
--- NOTE | 2019-02-09 13:52 | PROGRESS NOTE ---
DATE: 02/09/2019 SUBJECTIVE: The patient has had a little more confusion today and little agitated earlier but she is back to baseline now. She is cooperative and has no specific complaints. OBJECTIVE: Afebrile, pulse 87, respirations 21, blood pressure 140/55, O2 saturation 100% on room air. CV: RRR. Lungs: Clear. Abdomen: Prominent ascites. Extremities: No edema. Neurologic: Nonfocal. She moves all extremities well. Baseline mild confusion noted. Patient is cooperative at this point in time. White count 10.3, hemoglobin 9.8, platelets 134,000. Sodium 133, potassium 3.2, chloride 99, CO2 of 21, BUN 14, creatinine 0.9, glucose 95, calcium 7.7, magnesium 1.3. ASSESSMENT: 1. Hepatic encephalopathy. 2. Cirrhosis of the liver with prominent ascites refractory to diuretics. 3. Hypertension. 4. Fibromyalgia. 5. IgA nephropathy. 6. Hypokalemia. 7. Hypomagnesemia. 8. Mild agitation. PLAN: We will avoid sedative medications as that likely would cause worsening in her mental status at this point. She is calm presently. We will continue to monitor the situation. She has [place] ordered p.r.n. at this point. She is on Paxil. We will continue to monitor her electrolytes closely. I am going to add potassium to her maintenance IV fluids at 40 mEq/L and slightly decrease those IV fluids from 80 to 55 mL an hour. We will give her magnesium oxide orally and we will continue to monitor the patient. General surgery is talking with the patient about a catheter to help drain the ascites in the long run. That will be discussed further tomorrow with the family. cc: MD Ruben Mendez MD
[2019-02-09] MEDS: MAG-OX PO SCH (15:03)
[2019-02-09] MEDS: D5 1/2 NS + KCL 40 MEQ 1,000 ML IV SCH (15:08)
[2019-02-09] MEDS: PAXIL PO SCH (20:55)
[2019-02-10] MEDS: PROTONIX PO SCH (06:09)
[2019-02-10] MEDS: D5 1/2 NS + KCL 40 MEQ 1,000 ML IV SCH (08:09)
[2019-02-10] MEDS: ALDACTONE PO SCH (08:10)
[2019-02-10] MEDS: BUMEX PO SCH (08:10)
[2019-02-10] MEDS: MAG-OX PO SCH (08:11)
[2019-02-10] MEDS: LACTULOSE PO SCH ×4 (08:11→21:59)
[2019-02-10] MEDS: KLOR-CON PO SCH ×2 (08:11→21:59)
--- NOTE | 2019-02-10 08:35 | PROGRESS NOTE ---
DATE: 02/10/2019 VITAL SIGNS: Stable with temperature 98.5 degrees, heart rate 99, respirations 18, blood pressure 133/56, O2 saturation on room air 97%. SUBJECTIVE: The patient is sitting up eating. She feels weak, and has not ambulated. She will need some assistance if sent home. She refuses to go to rehab. LABORATORY DATA: Lab yesterday revealed hemoglobin 9.8, hematocrit 29.3, white blood count 10,400. Ammonia was 56. PLAN: Nursing staff to arrange meeting with family and Dr. Mcbride concerning placement of paracentesis catheter. Discharge will be considered this afternoon. cc: Ruben Goss MD
[2019-02-10 09:17] LABS: INR 1.9; PROTIME 23.2 Seconds (11.0-16.0)
--- NOTE | 2019-02-10 20:01 | GENERAL SURGERY PROGRESS NOTE ---
DATE: 02/10/2019 SUBJECTIVE: The patient is doing okay today. No severe pain, fever, nausea, or vomiting. OBJECTIVE: Vital signs: She is afebrile. Pulse 80s to 107, blood pressure 173/61, O2 saturation 100%. General: She is awake and alert. She is oriented x3, but mildly confused and forgetful of some details. No acute distress. CV: Regular rate and rhythm. Respiratory: Bilateral breath sounds. No work of breathing. GI: Protuberant, nontender. ASSESSMENT/PLAN: A 73-year-old female with refractory ascites secondary to end-stage liver disease. She is failing outpatient management with diuretics. She has had numerous paracentesis and may benefit from placement of peritoneal drain catheter. I discussed this with her and her daughter including the risks and benefits such as infection, injury to underlying organs such as the intestines, catheter malfunction, perioperative pulmonary or cardiac complications from surgery and other imponderables. They understand and agree to proceed tomorrow afternoon. We will also give her 2 units of fresh frozen plasma given her mild coagulopathy. cc: MD Ruben Gupta MD
[2019-02-10] MEDS: PAXIL PO SCH (21:58)
[2019-02-10] MEDS ORDERED: NS 500 ML IV ONE (22:21)
[2019-02-10] MEDS: NS 500 ML IV SCH (22:42)
--- NOTE | 2019-02-10 22:47 | GASTROENTEROLOGY PROGRESS NOTE ---
DATE: 02/10/2019 SUBJECTIVE: Ms. Fernandez was sitting up in the bed resting comfortably. She denies any new symptoms. She is alert, oriented, and responding to questions. She is undecided about the placement of paracentesis catheter. She is adamant about going home because she is currently receiving a newly bought sofa at home and she wants to be there to receive that.Vital signs: Temperature was 98.7 degrees, pulse is 91 per minute, breathing 18, blood pressure 144/66. No asterixis noted. Abdomen: Slightly distended, but soft. Bowel sounds are audible. PT today is 23.2. INR 1.90. IMPRESSION: 1. Hepatic encephalopathy, resolved. 2. Cirrhosis of the liver, decompensated. 3. Ascites refractory to diuretics. 4. Other medical issues. RECOMMENDATION: At this point, we should stop her IV fluid and put her on a saline lock. Start her on 2 g sodium diet every day and resume all her medications all her home medications. She would definitely benefit from paracentesis catheter, but the decision has to be made whether she will be able to manage the catheter by herself at home or not, and discharge is pending to that decision. From Gastroenterology perspective not much to add but I will be available if needed. cc: MD Ruben Ferrell MD
[2019-02-10] MEDS ORDERED: BLISTEX MEDICATED BERRY LIP BALM TOP PRN (23:08)
[2019-02-11] MEDS: PROTONIX PO SCH (06:53)
[2019-02-11] MEDS: LACTULOSE PO SCH ×3 (08:14→21:31)
--- NOTE | 2019-02-11 10:02 | PROGRESS NOTE ---
DATE: 02/11/2019 SUBJECTIVE: Vital signs stable with temperature 98.4 degrees, heart rate 102, respirations 20, blood pressure 132/53, O2 saturation on room air 98%. The patient is ambulatory in the room this morning. She is scheduled to have paracentesis catheter placed in her abdomen this afternoon by Dr. Mcbride. Discussion was made with her family who agreed for the procedure. The patient also was agreeable to transfer for rehab at [facility] in [place]. Mental status is baseline this morning. cc: Ruben Goss MD
[2019-02-11] MEDS ORDERED: XYLOCAINE-MPF 2% ONE (13:09)
[2019-02-11] MEDS ORDERED: SENSORCAINE-MPF 0.5%/EPI 1:200,000 ONE (13:10)
[2019-02-11] MEDS ORDERED: LR 1,000 ML ONE (13:10)
[2019-02-11] MEDS ORDERED: DIPRIVAN 1% ONE (13:12)
[2019-02-11] MEDS ORDERED: KEFZOL 1 GM/D5W 1 GM/50 ML IVPB ONE (13:59)
[2019-02-11] MEDS ORDERED: KEFZOL 1 GM/D5W 1 GM/50 ML IVPB IV ONE (14:00)
[2019-02-11] MEDS ORDERED: ZEMURON ONE (14:24)
[2019-02-11] MEDS ORDERED: ZOFRAN ONE (14:42)
--- NOTE | 2019-02-11 15:57 | OPERATIVE NOTE ---
PROCEDURE DATE: 02/11/2019 PREOPERATIVE DIAGNOSES: 1. End-stage liver disease. 2. Refractory ascites. POSTOPERATIVE DIAGNOSIS: 1. End-stage liver disease. 2. Refractory ascites. PROCEDURE: Laparoscopic placement of peritoneal PleurX catheter. SURGEON: Randy Mcbride MD. ANESTHESIA: General ESTIMATED BLOOD LOSS: 5 mL. COMPLICATIONS: None apparent. SPECIMENS: None. FINDINGS: The patient had a [id number] amount of ascites. It was clear and straw colored. We drained 1500 mL off today. TECHNIQUE: She was brought to the operating room. General anesthesia was induced. She was prepped and draped in the sterile fashion. Marcaine 0.25% with epinephrine was used to anesthetize our incisions. An 11 mm incision was made above the umbilicus in the skin. The fascia was exposed and incised sharply. Entry into the peritoneal cavity was obtained under direct vision with the [employer]iMotorway[employer] device. Pneumoperitoneum was established. The camera was inserted. There was no evidence of injury to underlying structures. In the right lateral abdomen there were no adhesions. There was underlying ascites. I made a small incision with the knife and then more superior and medial I made a 2nd counterincision. I anesthetize the subcutaneous tissues between these 2 and tunneled the catheter subcutaneously from the upper incision down through the more lateral and lower incision. The cuff was kept in the subcutaneous position between the 2 incisions. I then, under direct vision, visualized the needle and introducer sheath into the peritoneal cavity through the lower lateral incision. A wire was passed through the sheath. The sheath was removed. The track was dilated. The introducer sheath was placed over the wire. The dilator was removed. The wire was removed. The catheter was passed into the sheath. The sheath was removed. The catheter was left in an intraperitoneal position. We hooked it up to an atrium drainage device. I then closed the incision over the insertion site with a running 4-0 subcuticular Biosyn. A silk stitch was used to anchor the catheter at its exit site. The abdomen was desufflated. The camera and ports were removed. The umbilical fascia was closed with a [id number] 0 Vicryl. The skin was closed with 4-0 subcuticular Monocryl and Steri- Strips. There were no apparent complications. She was awakened in stable condition and transferred to the recovery room. cc: MD Ruben Gupta MD
[2019-02-11] MEDS ORDERED: ULTRAM PO PRN (16:09)
[2019-02-11] MEDS: BUMEX PO SCH (16:22)
[2019-02-11] MEDS: MAG-OX PO SCH (16:22)
[2019-02-11] MEDS: ALDACTONE PO SCH (16:22)
[2019-02-11] MEDS: KLOR-CON PO SCH ×2 (16:23→21:30)
[2019-02-11] MEDS: PAXIL PO SCH (21:31)
[2019-02-11] MEDS: NS 500 ML IV SCH (21:31)
[2019-02-12] MEDS: PROTONIX PO SCH (06:03)
[2019-02-12 07:58] VITALS: BP 127/63
[2019-02-12] MEDS: ALDACTONE PO SCH (09:00)
--- NOTE | 2019-02-12 09:32 | DISCHARGE SUMMARY ---
ADMISSION DATE: 02/03/2019 DISCHARGE DATE: 02/12/2019 DISCHARGE MEDICATIONS: Usual medications previously, including Bumex, spironolactone, Protonix, Paxil, lactulose. CONSULTATIONS: Dr. Tillman and Dr. Mcbride. PROCEDURE: Placement of paracentesis catheter, right mid abdomen, 02/11/2019. HISTORY OF PRESENT ILLNESS: This is one of several recent [facility] admissions for this 73- year-old white female who has end-stage liver disease, hepatic encephalopathy, ascites, nephropathy. She presented with confusion for a couple days, and laboratory revealed elevated ammonia of 123. Bilirubin was 3.65, AST 66, ALT 21, alkaline phosphatase 84, total protein 5.9, albumin 2.2, BUN 17, creatinine 1.0. HOSPITAL COURSE: Lactulose was given per enema, and as the patient became less confused, she was able to tolerate it p.o. Last ammonia on 02/09/[address] Mcbride placed a paracentesis catheter yesterday. She will probably need assistance in using it. She continues to be weak. She had an episode of some shortness of breath this morning. Lungs are clear. O2 saturation on nasal oxygen is 100%. Arrangements are made for her to be transferred to [facility] and rehab for additional strengthening before returning home. She had home health services with [facility] prior to admission. This will be restarted when she returns home. Hospice was discussed with the patient. This will be considered in the near future. FINAL DIAGNOSES: Included: 1. Liver failure, both chronic and acute. 2. Hepatic encephalopathy with elevated ammonia level. 3. Ascites. 4. Nephropathy. 5. Hypertension. cc: Ruben Goss MD
[2019-02-12] MEDS: KLOR-CON PO SCH (09:45)
[2019-02-12] MEDS: MAG-OX PO SCH (09:45)
[2019-02-12] MEDS: BUMEX PO SCH (09:45)
[2019-02-12] MEDS: LACTULOSE PO SCH (09:53)
== END 2019-02-12 11:09 | DRG 442 ==
LOC: SUPCPDRO → ED 20:12 → 4N 02-04 00:44 → SUATTDRO 02-04 00:44 → 1N 02-04 12:46
PROVIDERS: ADMIT Family Medicine; ATTEND Family Medicine
CPT/HCPCS: 36430; 49083; 71010; 71045; 80048; 80053; 82140; 82948; 83605; 83735; 85025; 85610; 85730; 86850; 86900; 86901; 87040; 93005; 96365; 96374; 99284; A9270; J0690; J2405; J3480; J3486; J7040; J7120; P9017; P9047; XXXXX

== ENCOUNTER 2019-02-13 15:45 | Inpatient (IN) ==
[2019-02-13] MEDS ORDERED: NS 1,000 ML ONE (16:36)
[2019-02-13] MEDS ORDERED: NS 1,000 ML IV ONE (16:40)
--- NOTE | 2019-02-13 16:57 | PROVIDER DOCUMENTATION ---
HPI-General Adult - General Chief Complaint: Abnormal Lab[s] Stated Complaint: LOW H& H Time Seen by Provider: 02/13/19 16:27 Source: patient Allergies/Adverse Reactions: Patient Allergies Allergy/AdvReac Type Severity Reaction Status Date / Time morphine Allergy Severe blind Verified 01/31/19 06:49 buprenorphine HCl * Allergy Intermediate VOMITING Verified 01/31/19 06:49 [From Buprenex] codeine [Codeine] Allergy Intermediate ITCHING Verified 01/31/19 06:49 hydrocodone bitartrate * Allergy Intermediate ITCHING Verified 01/31/19 06:49 [From Lortab] ciprofloxacin [From Cipro] Allergy Mild VOMITING Verified 01/31/19 06:49 ciprofloxacin HCl * Allergy Mild VOMITING Verified 01/31/19 06:49 [From Cipro] metronidazole Allergy Mild vomitng Verified 01/31/19 06:49 propoxyphene HCl * Allergy Mild ITCHING Verified 01/31/19 06:49 [From Lorcet (propoxyphene)] clonazepam Allergy ITCHING Verified 01/31/19 06:49 Home Medications: Home Medication List Medication Instructions Recorded Confirmed Last Taken Type BENAZEpril [Lotensin] 20 mg PO DAILY 12/11/16 02/04/19 02/02/19 09:00 History Pantoprazole [Protonix] 40 mg PO DAILY@0700 12/01/18 02/04/19 02/02/19 09:00 History Paroxetine HCl [Paxil] 40 mg PO DAILY 12/01/18 02/04/19 02/02/19 09:00 History Bumetanide [Bumex] 1 mg PO DAILY #30 tab 12/02/18 02/04/19 02/02/19 09:00 Rx Potassium Chloride E.r. [Klor-Con] 10 meq PO DAILY #30 tab 12/02/18 02/04/19 02/02/19 09:00 Rx Lactulose 30 ml PO 0900,1500,2100 #90 udc 12/13/18 02/04/19 02/02/19 21:00 Rx Spironolactone [Aldactone] 50 mg PO DAILY #30 tab 12/13/18 02/04/19 02/02/19 09:00 Rx Promethazine [Phenergan] 25 mg PO Q6H PRN PRN 01/31/19 02/04/19 02/02/19 09:00 History - History of Present Illness -Gen Adult Nature of Presenting Problems: 73yof present to ER with c/o low H&H. Pt was sent from nursing facility. Pt has a pleurx drain in place to RUQ with bleeding around dressing noted. 250mL of blood drainage in vac. Pt has hx of cirrhosis. Denies blood in stool or emesis. Pt denies pain. BP 84/31 Location of Pain/Injury: reports: none Associated Symptoms: reports: shortness of breath. denies: chest pain, diaphoresis, diarrhea, fever/chills, genitourinary problems, nausea, vomiting Review of Systems - Adult - REVIEW OF SYSTEMS - ADULT Constitutional: reports: no symptoms reported. denies: chills, fever Eyes: reports: no symptoms reported Ears, Nose, Mouth & Throat: reports: no symptoms reported Cardiovascular: reports: no symptoms reported. denies: chest pain, palpitations Respiratory: reports: see HPI, shortness of breath. denies: cough, hemoptysis, wheezing Gastrointestinal: reports: no symptoms reported. denies: abdominal pain, hematemesis, constipation, diarrhea, nausea, rectal bleeding, vomiting Genitourinary: reports: no symptoms reported. denies: dysuria, hematuria Musculoskeletal: reports: no symptoms reported Integumentary: reports: no symptoms reported Neurological: reports: no symptoms reported. denies: dizziness/vertigo, numbness, paresthesia, slurred speech Psychiatric: reports: no symptoms reported Endocrine: reports: no symptoms reported Hematologic/Lymphatic: reports: no symptoms reported Allergic/Immunologic: reports: no symptoms reported All Other Systems: Reviewed and Negative Past History - Adult - PAST MEDICAL HISTORY-ADULT Review of Records: reports: Old Records Reviewed, Nursing Assessment Review, Medications Reviewed, Social history reviewed & non-contributory. Major Childhood Illnesses: reports: denies history Cardiovascular: reports: HTN Respiratory: reports: denies history Gastrointestinal: reports: diverticulosis, GERD, liver disease (cirrhosis), other (esophgeal varices) Obstetrical/Gynecological: reports: denies history Genitourinary: reports: kidney disease, kidney stones, other (IGA) Musculoskeletal: reports: arthritis, fibromyalgia Neurological: reports: denies history Psychiatric: reports: denies history Endocrine/Immune: reports: denies history Other Conditions: reports: denies history - PRIOR SURGERIES/PROCEDURES Surgical/Procedure History: reports: appendectomy, cholecystectomy, hysterectomy , BTL, orthopedic (extremity) (L shoulder), back/neck (back x2), other (lithrotripsy) - IMMUNIZATION STATUS Childhood Immunizations: See Nurse Assessment Flu Vaccine: See Nurse Assessment - FAMILY HISTORY Family History: reviewed, not pertinent Physical Exam-General - PHYSICAL EXAM-ADULT Initial Vital Signs Reviewed: Yes - CONSTITUTIONAL General Appearance: alert, mild distress - EYES Eyes: PERRL/EOMI, pink conjunctivae - HEAD, EARS, NOSE, MOUTH & THROAT HENMT: moist mucous membranes, normal ENT inspection - NECK Neck: full range of motion, supple, normal inspection - RESPIRATORY Respiratory: lungs clear, normal breath sounds, no respiratory distress, no accessory muscle use - CARDIOVASCULAR Cardiovascular: regular rate, rhythm - GASTROINTESTINAL (ABDOMEN) Abdominal Exam: normal bowel sounds, non tender, distended (ascites), other (Pleurx drain to RUQ, blood noted to dressing) - LYMPHATIC Lymphatic: no adenopathy - MUSCULOSKELETAL Back Exam: normal inspection, no vertebral tenderness Extremity: normal range of motion, normal inspection, normal capillary refill - SKIN Integumentary: normal color, warm/dry. negative: jaundice - NEUROLOGIC Neurologic: grossly normal, no motor/sensory deficits. negative: aphasia, EOM palsy, facial droop, focal weakness - PSYCHIATRIC Psych/Mental Status: oriented x 3 Progress - PLAN OF CARE/RESULTS Progress/Plan/Lab Results: Vital Signs - 8 hr 02/13/19 15:51 02/13/19 16:12 02/13/19 16:20 Temperature 97.7 F Pulse Rate 87 84 Respiratory Rate 16 20 Blood Pressure 92/41 O2 Sat by Pulse Oximetry 97 96 91 L 02/13/19 16:30 02/13/19 16:31 02/13/19 16:40 Temperature 98 F 98 F Pulse Rate 83 84 80 Respiratory Rate 17 18 14 Blood Pressure 84/31 84/31 O2 Sat by Pulse Oximetry 90 L 94 L 92 L Orders Category Date Time Status CHEST-PORTABLE [RAD] Stat Exams 02/13/19 16:39 Ordered AMMONIA [CHEM] Stat Lab 02/13/19 16:44 Ordered CBC WITH DIFF [HEME] Stat Lab 02/13/19 16:30 Ordered CK PROFILE [SP CHEM] Stat Lab 02/13/19 16:44 Ordered COMPREHENSIVE METABOLIC PANEL [CHEM] Stat Lab 02/13/19 16:30 Ordered LACTATE, PLASMA [CHEM] Stat Lab 02/13/19 16:44 Ordered OCCULT BLOOD SCREENING [STOOL] Stat Lab 02/13/19 16:44 Ordered PT [PROTIME WITH INR] [COAG] Stat Lab 02/13/19 16:44 Ordered PTT [COAG] Stat Lab 02/13/19 16:44 Ordered TROPONIN T Stat Lab 02/13/19 16:44 Ordered UA [URINALYSIS W/POSS RFLX CULT] [URINALYSIS] Stat Lab 02/13/19 16:44 Ordered 0.9% Sodium Chloride Inj [Ns] 1,000 ml Med 02/13/19 16:36 Discontinued .ROUTE As directed 0.9% Sodium Chloride Inj [Ns] 1,000 ml Med 02/13/19 16:40 Active IV 999 mls/hr Result Diagrams: 02/13/19 16:22 02/13/19 16:22 - REASSESSMENT Reassessment #1 Time Reassessed: 16:45 (discussed pt with Dr Reeder, asked if need for CT a bd/pelvis, denies need for this. ) Reassessment #2 Time Reassessed: 17:27 (BP 93/39.Discussed results thus far with daughter. States she had plasma prior to the drain placement 2 days ago. ) Status: improving - XRAY 1 XRAY Study: Chest Impression: See EMR Report (FINDINGS: The lungs are grossly clear. There is no discrete pleural fluid collection or pneumothorax. The cardiomediastinal silhouette and central vasculature are grossly unremarkable. IMPRESSION: No evidence of acute pathology by plain radiograph. Electronically signed by Td Garcia 02/13/2019 5:10 PM) - CT/MRI 1 CT Study: Abdomen, Pelvis Impression: See EMR Report (FINDINGS: There is mild subsegmental atelectasis at the lung bases. There is a significant amount of extraluminal free gas in the nondependent anterior aspect of the abdomen. A majority is at the mid abdomen as well as underneath the right hemidiaphragm. However, there is a transabdominal catheter that has been placed at the right lower quadrant. This gas may have come from placement of the tube or is atmospheric gas through the tube. However, the amount of gas is somewhat excessive simply from tube placement. Please correlate clinically. In addition, there is a significant amount of subcutaneous gas around the umbilicus. There is small volume fluid in the abdomen as well. There is a collection of hyperdense fluid in the anterior peritoneal cavity near the level of the umbilicus on the left. This appears to represent a collection of blood. The source is unknown. The hematoma measures up to 4.9 x 3.1 cm axially. There is body wall anasarca. The liver contour is very nodular indicating cirrhosis. There has been a prior cholecystectomy. There is no splenomegaly. The pancreas and adrenal glands are unremarkable. The kidneys and urinary bladder are grossly unremarkable. There has been a prior hysterectomy. There is uncomplicated sigmoid colonic diverticulosis. No focal bowel wall thickening is appreciated. There are air-fluid levels within the small bowel with only minimal distention, nonspecific but probably related to ileus. The remainder of the GI tract is grossly unremarkable. There is extensive aortoiliac atherosclerotic calcification. There are nonspecific prominent lymph nodes throughout the mesentery. There is a chronic appearing compression deformity at the superior aspect of L2. There is nothing to suggest acute osseous abnormality. IMPRESSION: 1.Significant pneumoperitoneum. There is a transabdominal catheter. At least some of this gas could have been introduced during placement. However, the amount of gas is somewhat excessive simply from tube placement. 2.Subcutaneous emphysema around the umbilicus. 3.Fairly small volume of ascites but there is a hyperdense fluid collection in the left lower quadrant anteriorly that is suspicious for a hematoma. The source is unknown. 4.Body wall anasarca. 5.Cirrhotic liver. 6.Nonspecific mild to moderate mesenteric lymphadenopathy. Electronically signed by Td Garcia 02/13/2019 6:57 PM) - CONSULTS/PCP/HOSPITALIST Notification #1 *Consult/PCP/Hospitalist*: Dr Viri Mendoza Discussed: 17:44 Consult Disposition: Will see in ED, Admit #2 Consult: Dr Perico Mendoza Discussed: 18:01 (states the bleeding around pleurx drain and into the vac sound like there is bleeding into the abdomen, CT scan ordered) #3 Consult: Dr Viri Mendoza Discussed: 19:26 (concerning CT abd/pelvis report, states he will consult surgery) Departure - Departure Date of Disposition Decision: 02/13/19 Time of Disposition Decision: 17:45 DIAGNOSIS: Low hemoglobin, Acute on chronic renal insufficiency, Increased ammonia level Cirrhosis Qualifiers: Hepatic cirrhosis type: unspecified hepatic cirrhosis Ascites presence: unspecified Qualified Code(s): K74.60 - Unspecified cirrhosis of liver Ascites Qualifiers: Ascites type: other type Qualified Code(s): R18.8 - Other ascites Disposition: ADMITTED INPATIENT 09 Certified Medical Emergency: Emergent Condition: Fair - Critical Care Note This patient required my direct & personal management of CC.: No Attestation - Physician/ AMBER Attestation Patient care was provided by Advanced Practice Provider:: Yes Advanced Practice Provider:: Deborah Andrade Advanced Practice Provider documentation review:: The Mid-level provider documentation, treatment plan and medical decision making was reviewed by the physician who agrees with all treatment and medical decision making by the MLP. The physician spent face to face time with patient:: No Advanced Practice Provider documentation review:: Supervising physician onsite and consulted in the evaluation and care of this patient. The physician did not have a face to face encounter with the patient.
[2019-02-13 17:03] LABS: INR 2.23; PROTIME 26.3 Seconds (11.0-16.0)
[2019-02-13 17:04] LABS: PTT 41.6 Seconds (22.3-41.8)
[2019-02-13 17:06] LABS: URINE SOURCE CLEAN CATCH
[2019-02-13 17:08] LABS: BILIRUBIN URINE NEGATIVE (NEGATIVE); BLOOD URINE NEGATIVE (NEGATIVE); COLOR YELLOW; GLUCOSE URINE NEGATIVE (NEGATIVE); KETONE URINE NEGATIVE (NEGATIVE); LEUKOCYTES URINE SMALL (NEGATIVE); NITRITE URINE NEGATIVE (NEGATIVE); PROTEIN URINE TRACE mg/dL (NEGATIVE); SP GRAVITY URINE 1.013; TURBIDITY URINE HAZY (CLEAR); UROBILINOGEN URINE 3 mg/dL (NORMAL)
[2019-02-13 17:09] LABS: BASO# 0.03 X1000 (0.0-0.2); BASO% 0.2 % (0.0-0.8); EOS# 0.11 X1000 (0.0-0.7); EOS% 0.7 % (0.0-10.0); HEMATOCRIT 18.9 % (37.0-47.0); HEMOGLOBIN 6.4 g/dL (12.0-16.0); IMM GRAN# 0.07 X1000 (0.0-0.04); IMM GRAN% 0.4 % (0.0-0.5); LYMPH# 1.99 X1000 (1.2-3.4); LYMPH% 12.7 % (20.5-51.1); MCH 31.7 PG (27-31); MCHC 33.9 g/dL (33-37); MCV 93.6 FL (81-99); MONO# 3.59 X1000 (0.11-0.59); MONO% 22.9 % (1.7-9.3); MPV 10.4 FL (7.4-10.4); NEUT# 9.89 X1000 (1.4-6.5); NEUT% 63.1 % (42.2-75.2); PLT 162 X1000 (130-400); RBC 2.02 XMIL (4.2-5.4); RDW 15.2 % (11.5-14.5); WBC 15.68 X1000 (4.8-10.8)
--- NOTE | 2019-02-13 17:12 | Diag Imaging Result Doc PS360 ---
EXAM: CHEST-PORTABLE INDICATION: sob TECHNIQUE: One view COMPARISON: 02/03/2019 FINDINGS: The lungs are grossly clear. There is no discrete pleural fluid collection or pneumothorax. The cardiomediastinal silhouette and central vasculature are grossly unremarkable. IMPRESSION: No evidence of acute pathology by plain radiograph. Electronically signed by Td Garcia 02/13/2019 5:10 PM
[2019-02-13 17:14] LABS: UR EPITHELIAL CELLS <10 /HPF (<10); URINE BACTERIA NEGATIVE /HPF; URINE RBC <10 /HPF (<10); URINE WBC 20-40 /HPF (<10)
[2019-02-13 17:16] LABS: URINE CASTS NONE SEEN; URINE CRYSTALS NONE SEEN; URINE SMALL ROUND CELLS RENAL PRESENT; URINE YEAST PRESENT
[2019-02-13] MEDS ORDERED: NS 500 ML IV ONE ×2 (17:21→18:49)
[2019-02-13 17:27] LABS: ALB/GLOB RATIO 0.8; ALBUMIN 2.3 g/dL (3.5-5.0); CALCIUM 8.1 mg/dL (8.8-10.2); CREATININE 2.1 mg/dL (0.5-0.9); POTASSIUM 4.3 mmol/L (3.5-5.1); TOTAL BILIRUBIN 3.08 mg/dL (0.20-1.00); TOTAL PROTEIN 5.2 g/dL (6.3-8.3)
[2019-02-13 17:57] LABS: LYMPHS 11 % (21-51); MONO 18 % (1-9); SEGS 71 % (42-75)
--- NOTE | 2019-02-13 18:59 | Diag Imaging Result Doc PS360 ---
EXAM: CT ABDOMEN/PELVIS W/O CONTRAST INDICATION: abd pain, low H H TECHNIQUE: This exam was performed using automated exposure control, adjustment of mA or kV according to patient size, and/or use of iterative reconstruction technique. COMPARISON: 08/18/2015 FINDINGS: There is mild subsegmental atelectasis at the lung bases. There is a significant amount of extraluminal free gas in the nondependent anterior aspect of the abdomen. A majority is at the mid abdomen as well as underneath the right hemidiaphragm. However, there is a transabdominal catheter that has been placed at the right lower quadrant. This gas may have come from placement of the tube or is atmospheric gas through the tube. However, the amount of gas is somewhat excessive simply from tube placement. Please correlate clinically. In addition, there is a significant amount of subcutaneous gas around the umbilicus. There is small volume fluid in the abdomen as well. There is a collection of hyperdense fluid in the anterior peritoneal cavity near the level of the umbilicus on the left. This appears to represent a collection of blood. The source is unknown. The hematoma measures up to 4.9 x 3.1 cm axially. There is body wall anasarca. The liver contour is very nodular indicating cirrhosis. There has been a prior cholecystectomy. There is no splenomegaly. The pancreas and adrenal glands are unremarkable. The kidneys and urinary bladder are grossly unremarkable. There has been a prior hysterectomy. There is uncomplicated sigmoid colonic diverticulosis. No focal bowel wall thickening is appreciated. There are air-fluid levels within the small bowel with only minimal distention, nonspecific but probably related to ileus. The remainder of the GI tract is grossly unremarkable. There is extensive aortoiliac atherosclerotic calcification. There are nonspecific prominent lymph nodes throughout the mesentery. There is a chronic appearing compression deformity at the superior aspect of L2. There is nothing to suggest acute osseous abnormality. IMPRESSION: 1.Significant pneumoperitoneum. There is a transabdominal catheter. At least some of this gas could have been introduced during placement. However, the amount of gas is somewhat excessive simply from tube placement. 2.Subcutaneous emphysema around the umbilicus. 3.Fairly small volume of ascites but there is a hyperdense fluid collection in the left lower quadrant anteriorly that is suspicious for a hematoma. The source is unknown. 4.Body wall anasarca. 5.Cirrhotic liver. 6.Nonspecific mild to moderate mesenteric lymphadenopathy. Electronically signed by Td Garcia 02/13/2019 6:57 PM
--- NOTE | 2019-02-13 20:57 | HISTORY AND PHYSICAL ---
CHIEF COMPLAINT: Hypotension and low hemoglobin. HISTORY OF PRESENT ILLNESS: The patient is a 73-year-old white female followed by Dr. Ruben Goss who was brought back to [facility] with anemia, profound. She was in the hospital and discharged yesterday. She had a PleurX catheter placed in the right abdomen day before yesterday per Dr. Mcbride to drain off prominent ascites as she has severe cirrhosis of the liver end stage. The patient had hemoglobin that has decreased from the mid 9 range about 4 to 5 days ago down to 6.4 today, and she has been admitted for this reason for transfusions. Her INR also is elevated at 2.23. MEDICATIONS PRIOR TO ADMISSION: Lotensin 20 mg p.o. daily, Protonix 40 mg p.o. daily, Paxil 40 mg p.o. daily, Bumex 1 mg p.o. q.a.m., Klor-Con 10 mEq p.o. daily, Aldactone 50 mg p.o. daily, lactulose 30 mL p.o. t.i.d., Phenergan 25 mg p.o. q.6 hours p.r.n. nausea or vomiting. ALLERGIES: To codeine, morphine, Buprenex, hydrocodone, Cipro, Flagyl, propoxyphene and Klonopin. PAST MEDICAL HISTORY: 1. End-stage cirrhosis of the liver. 2. Severe ascites with PleurX catheter in place right mid abdomen. 3. Hepatic encephalopathy. 4. Possible hepatorenal syndrome. 5. Hypertension. 6. History of IgA nephropathy. 7. History of fibromyalgia. PAST SURGICAL HISTORY: 1. PleurX catheter placement [address] Mcbride. 2. Cholecystectomy. 3. Back surgery. 4. Two shoulder surgeries. 5. Hysterectomy. FAMILY HISTORY: Father had heart disease. SOCIAL HISTORY: The patient is a former smoker. No alcohol or drug use. PHYSICAL EXAMINATION: VITAL SIGNS: Show afebrile. Blood pressure low 84/31, pulse 82, respirations 14, O2 saturation on 2 L 94%. GENERAL: Patient with anasarca with catheter in place. Right mid abdomen has prominent serous bloody discharge in the bottle, and she said this is about the fourth bottle today. Prominent ascites is noted. HEENT: PERRL. EOMI. Sclerae anicteric. OP no redness. Tongue in the midline. NECK: No JVD or cervical LA. No TMG. CARDIOVASCULAR: RRR without distinct murmur. LUNGS: Fairly clear. ABDOMEN: Very protuberant, soft, tender diffusely. BREASTS/PELVIC/RECTAL: Deferred. EXTREMITIES: No major edema in the lower extremities. NEUROLOGIC: Cranial nerves 2 through 12 are intact. She moves all extremities well. LABORATORY DATA: White count 15.6, hemoglobin 6.4 down from 9.8 four days ago, hematocrit 18.9, MCV 93.6, platelets 162,000. INR 2.23, PTT 41.6. Sodium 129, potassium 4.3, chloride 96, CO2 21, BUN 35, creatinine 2.1, glucose 85, calcium 8.1, total bilirubin 3.08, AST 46, ALT 15, alkaline phosphatase 86, ammonia 94, CK total 45, troponin less than 0.01, total protein 5.2, albumin 2.3, plasma lactate 2.5. Urinalysis is a clean catch specimen, 20 to 40 WBCs, leukocytes small, negative glucose and ketones. Blood negative, nitrite negative, bacteria negative, epithelial cells less than 10, RBCs less than 10. Urine culture has been obtained. Stool for occult blood is negative. RADIOLOGIC DATA: Chest x-ray today: No evidence of acute chest pathology. CT scan abdomen and pelvis without contrast reveals significant pneumoperitoneum with transabdominal catheter in place. Some of the gas could have been introduced during placement; however, a large amount of gas, possibly excessive, simply from the tube placement is read out per the radiologist, Dr. Garcia. Subcutaneous emphysema around the umbilicus. A small amount of ascites but hyperdense fluid collection left lower quadrant anteriorly suspicious for hematoma, source unknown. Body wall anasarca, cirrhotic liver. Nonspecific mild to moderate mesenteric lymphadenopathy. ASSESSMENT: 1. Profound anemia. 2. 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 3. End-stage cirrhosis of the liver with ascites. 4. Hepatic encephalopathy. 5. History of IgA nephropathy with worsened renal function, rule out hepatorenal syndrome. 6. Possible large hematoma left lower quadrant. 7. Pneumoperitoneum, severe. 8. History of PleurX catheter placement right mid abdomen 2 days ago. 9. History of hypertension, now with mild hypotension. PLAN: Patient has received some fluids for fluid resuscitation in the emergency room. She has been typed and cross-matched and 2 units PRBCs will be transfused. We will transfuse 2 units FFP as well. Continue PPI. Hold antihypertensive medication. Continue her lactulose. I have spoken with Dr. Shay who is on for Dr. Mcbride for General Surgery tonight, and he will see the patient in consultation regarding the hematoma and pneumoperitoneum and PleurX catheter. We will place her in the ICU for care. We will follow serial hemoglobins and hematocrits. cc: Real Meredith MD
[2019-02-13] MEDS: LACTULOSE PO SCH (21:07)
--- NOTE | 2019-02-13 21:25 | GENERAL SURGERY PROGRESS NOTE ---
DATE: 02/13/2019 SUBJECTIVE: The patient was recently discharged from the hospital essentially yesterday, after having a laparoscopic PleurX catheter placed into her abdomen by my partner, Dr. Mcbride. The surgery itself, after discussion with Dr. Mcbride, was essentially uncomplicated and went well. The patient was in a prison and had difficulty, then was admitted over here. She had a CT scan after being admitted that showed a large volume of pneumoperitoneum. The patient is not complaining of any abdominal pain at this point. She did have a hematocrit that was down to 18 and there was concern about blood loss, since the fluid in her abdomen became bloody. It looks like also on the CT scan that she had a potential for hematoma to be developing. ASSESSMENT AND PLAN: The patient has been admitted to the intensive care unit and is currently undergoing resuscitation with blood products. She is not complaining of any abdominal pain. Her drain looks like mostly slightly blood-tinged ascites. She has no peritoneal signs on exam. I suspect the pneumoperitoneum that we are seeing is still residual pneumoperitoneum from her laparoscopic procedure. There are no signs of succus or any other enteric contents draining from the PleurX catheter site. I would recommend monitoring and resuscitate her, and Dr. Mcbride will see her back in the morning. cc: MD Real Celestin MD
[2019-02-14 00:45] LABS: HEMATOCRIT 21.7 % (37.0-47.0); HEMOGLOBIN 6.9 g/dL (12.0-16.0)
[2019-02-14] MEDS: LEVOPHED 8 MG in D5 1/2 NS 250 ML IV SCH (01:12)
[2019-02-14] MEDS ORDERED: NS 500 ML ONE (04:11)
[2019-02-14 04:43] LABS: BASO# 0.04 X1000 (0.0-0.2); BASO% 0.2 % (0.0-0.8); EOS% 1.2 % (0.0-10.0); HEMATOCRIT 22.2 % (37.0-47.0); HEMOGLOBIN 7.7 g/dL (12.0-16.0); IMM GRAN% 0.6 % (0.0-0.5); LYMPH# 1.59 X1000 (1.2-3.4); LYMPH% 9.7 % (20.5-51.1); MCH 32.4 PG (27-31); MCHC 34.7 g/dL (33-37); MCV 93.3 FL (81-99); MONO# 3.66 X1000 (0.11-0.59); MONO% 22.3 % (1.7-9.3); MPV 10.7 FL (7.4-10.4); NEUT# 10.84 X1000 (1.4-6.5); PLT 139 X1000 (130-400); RBC 2.38 XMIL (4.2-5.4); RDW 15.5 % (11.5-14.5); WBC 16.43 X1000 (4.8-10.8)
[2019-02-14 05:14] LABS: CALCIUM 8.2 mg/dL (8.8-10.2); CREATININE 1.6 mg/dL (0.5-0.9); POTASSIUM 4.4 mmol/L (3.5-5.1)
[2019-02-14] MEDS: PROTONIX PO SCH (06:16)
[2019-02-14] MEDS: KLOR-CON PO SCH (08:10)
[2019-02-14] MEDS: LACTULOSE PO SCH ×3 (08:10→21:42)
--- NOTE | 2019-02-14 08:31 | PROGRESS NOTE ---
DATE: 02/14/2019 VITAL SIGNS: Temperature 99 degrees, heart rate 83, respirations 20, blood pressure 104/58, O2 saturation on 2 liters nasal oxygen 100%. LABORATORY: Hemoglobin 7.7, hematocrit 22.2, white blood count [id number]. INR 2.23, prothrombin time 26, PTT 41.6. SUBJECTIVE: Ms. Fernandez was at rehab for a couple of days and returned to the emergency room with hypotension, and was found to be anemic with hemoglobin 6.4, down from 9.8 a few days before. She has had no hematemesis or melena. Abdominal catheter for paracentesis was placed by Dr. Mcbride three days ago. She is arousable. Blood pressure is better as well as hemoglobin. Orders were given last night for transfusion of 2 units of packed red blood cells and fresh frozen plasma. Chest is clear. BUN on presentation was 35 and creatinine 2.1. BUN this morning is 33 and creatinine 1.6. Plasma lactate was 2.5. PLAN: Continue supportive care. Hematocrit will be rechecked tomorrow morning. cc: MD Real Garcias MD
--- NOTE | 2019-02-14 14:52 | GENERAL SURGERY PROGRESS NOTE ---
DATE: 02/14/2019 SUBJECTIVE: The patient denies abdominal pain. OBJECTIVE: She is afebrile. Vital signs are stable. Systolic blood pressure 112-133 this morning, although there are a few measurements with systolic pressure as low was 71. The majority of her pressures appear to be normal. Pulse rate is normal.General: She is awake and alert. There is no acute distress. Gastrointestinal: Soft, nontender, protuberant. The abdominal dressing has some serosanguineous drainage. No erythema. The PleurX catheter has blood tinged thin fluid. No signs of succus entericus. LABORATORY: White blood cell count 16, hemoglobin 7.7, hematocrit 22.2, platelet count 139,000. INR 2.2. Electrolytes reviewed and unremarkable. BUN 33, creatinine 1.6. These are improving. Ammonia level 93. IMAGING: CT of abdomen and pelvis was reviewed by me showing pneumoperitoneum and probable intra- abdominal hematoma. ASSESSMENT AND PLAN: 73-year-old female with end-stage liver disease, coagulopathy, and recent placement of laparoscopic PleurX catheter. I suspect she has had some perioperative bleeding from the procedure given her coagulopathy and acute blood loss anemia. This appears to be improving after her transfusions. Her vital signs are improved. We will continue monitoring, but I have a low suspicion of intra-abdominal solid organ injury or bowel injury. Therefore continue supportive care and I think she will make some improvement over the next few days to be able to head back to rehab. cc: MD Real Gupta MD
[2019-02-14] MEDS ORDERED: BLISTEX MEDICATED BERRY LIP BALM TOP PRN (16:08)
[2019-02-14] MEDS: ROCEPHIN 1 GM in NS 50 ML IV SCH (17:21)
[2019-02-15] MEDS: LEVOPHED 8 MG in D5 1/2 NS 250 ML IV SCH (01:58)
[2019-02-15 05:37] LABS: BASO# 0.04 X1000 (0.0-0.2); BASO% 0.2 % (0.0-0.8); EOS# 0.18 X1000 (0.0-0.7); HEMATOCRIT 29.3 % (37.0-47.0); HEMOGLOBIN 10.1 g/dL (12.0-16.0); IMM GRAN# 0.08 X1000 (0.0-0.04); IMM GRAN% 0.5 % (0.0-0.5); LYMPH# 2.81 X1000 (1.2-3.4); LYMPH% 16.1 % (20.5-51.1); MCH 31.4 PG (27-31); MCHC 34.5 g/dL (33-37); MONO% 20.1 % (1.7-9.3); MPV 10.1 FL (7.4-10.4); NEUT# 10.82 X1000 (1.4-6.5); NEUT% 62.1 % (42.2-75.2); PLT 183 X1000 (130-400); RBC 3.22 XMIL (4.2-5.4); RDW 15.7 % (11.5-14.5); WBC 17.43 X1000 (4.8-10.8)
[2019-02-15] MEDS: PROTONIX PO SCH (06:01)
--- NOTE | 2019-02-15 08:07 | Diag Imaging Result Doc PS360 ---
CHEST-PORTABLE - 02/15/2019 INDICATION: NG tube placement COMPARISON: 02/13/2019 FINDINGS: There is a nasogastric tube in good position in the stomach. The lungs are clear. Heart size is normal. No pneumothorax or pleural effusion. IMPRESSION: Nasogastric tube in the stomach. Electronically signed by James Hightower 02/15/2019 8:04 AM
[2019-02-15] MEDS: KLOR-CON PO SCH (08:57)
[2019-02-15] MEDS: LACTULOSE PO SCH ×3 (08:57→20:13)
--- NOTE | 2019-02-15 13:40 | PROGRESS NOTE ---
DATE: 02/15/2019 SUBJECTIVE: The patient is not communicating at this time. She has encephalopathy from raised ammonia levels because of end-stage liver disease. She also had a catheter placed in her abdomen and did become anemic and has been given transfusions and is doing better with that. OBJECTIVE: Vital Signs: Blood pressure 120/53, respirations 16, pulse 98 and regular, temperature is 98.5 degrees Fahrenheit. HEENT: She is normocephalic. Lungs: A few coarse sounds, probably airway sounds. Heart: Regular rate and rhythm without murmurs, gallops, or friction rubs. Abdomen: Soft. Active bowel sounds, though with distention and ascites. She does have a drainage. Neurological: The patient is not responsive at this time. LABORATORY: Shows white count 17,430, hemoglobin 10.1, hematocrit 29.3. Hemoglobin had been down even lower to 6.9 but was transfused. Serum ammonia level is 166. We now have an NG tube down to give her lactulose. Urine culture grew a little bit of yeast but otherwise was negative. ASSESSMENT: 1. End-stage liver disease. 2. Encephalopathy. 3. Anemia. PLAN: Continue to support. Please see orders. cc: MD Real Vidal Jr, MD
--- NOTE | 2019-02-15 14:33 | GENERAL SURGERY PROGRESS NOTE ---
DATE: 02/15/2019 SUBJECTIVE: The patient has become more encephalopathic and not able to converse now. OBJECTIVE: Vital Signs: She is afebrile. Vital signs are stable. General: She is very somnolent and not arousable. She appears to be asleep. She does respond to painful stimuli. CV: Regular rate and rhythm. Respiratory: Bilateral breath sounds. No work of breathing. GI: Soft, protuberant, nontender. Drain with serosanguineous fluid over 6000 mL recorded yesterday. LABORATORY: Ammonia is 166. White blood cell count 17,000, hemoglobin 10, hematocrit 29. ASSESSMENT/PLAN: A 73-year-old female with end-stage liver disease, which is worsening. She is encephalopathic secondary to this. She had acute blood loss anemia likely secondary to her coagulopathy and catheter insertion. She has responded to blood transfusions, and appears to be hemodynamically stable at this time. cc: MD Real Gupta MD
[2019-02-15] MEDS: ROCEPHIN 1 GM in NS 50 ML IV SCH (17:14)
[2019-02-15] MEDS: SODIUM CHLORIDE 0.9% INJ SCH (20:13)
[2019-02-15] MEDS: NEXIUM IV SCH (20:13)
[2019-02-16 06:45] LABS: BASO# 0.03 X1000 (0.0-0.2); BASO% 0.2 % (0.0-0.8); EOS# 0.22 X1000 (0.0-0.7); EOS% 1.5 % (0.0-10.0); HEMATOCRIT 33.5 % (37.0-47.0); HEMOGLOBIN 11.2 g/dL (12.0-16.0); IMM GRAN# 0.03 X1000 (0.0-0.04); IMM GRAN% 0.2 % (0.0-0.5); LYMPH# 1.77 X1000 (1.2-3.4); MCH 31.2 PG (27-31); MCHC 33.4 g/dL (33-37); MCV 93.3 FL (81-99); MONO# 2.16 X1000 (0.11-0.59); MONO% 14.6 % (1.7-9.3); MPV 10.2 FL (7.4-10.4); NEUT# 10.56 X1000 (1.4-6.5); NEUT% 71.5 % (42.2-75.2); PLT 189 X1000 (130-400); RBC 3.59 XMIL (4.2-5.4); RDW 16.3 % (11.5-14.5); WBC 14.77 X1000 (4.8-10.8)
[2019-02-16] MEDS: LACTULOSE PO SCH ×3 (08:21→20:30)
[2019-02-16] MEDS: NEXIUM IV SCH ×2 (08:21→20:30)
[2019-02-16] MEDS: SODIUM CHLORIDE 0.9% INJ SCH ×2 (08:21→20:30)
[2019-02-16 09:24] LABS: CALCIUM 8.8 mg/dL (8.8-10.2); POTASSIUM 4.7 mmol/L (3.5-5.1)
--- NOTE | 2019-02-16 13:00 | PROGRESS NOTE ---
DATE: 02/16/2019 SUBJECTIVE: Patient is now awake and talking. She is appropriate. Apparently getting the lactulose and this helps. Ammonium level is pending. OBJECTIVE: Vital Signs: Blood pressure 143/83, respirations 16, pulse 97, temperature 97.7 degrees. HEENT: She is normocephalic. EOMS intact. PERRLA. Throat clear. Lungs: Clear to auscultation and percussion without rhonchi, rales, or wheezes. Heart: Regular rate and rhythm without murmurs, gallops, or friction rubs. Abdomen: Soft. Active bowel sounds. No organomegaly or tenderness. Neurological: Intact grossly. ASSESSMENT: 1. End-stage liver disease. 2. Secondary encephalopathy. PLAN: Continue lactulose. As she is awake enough to take it orally, we will DC her NG tube. cc: MD Real Vidal Jr, MD
--- NOTE | 2019-02-16 13:40 | GENERAL SURGERY PROGRESS NOTE ---
DATE: 02/16/2019 SUBJECTIVE: The patient is feeling better. She denies abdominal pain. She is hungry. OBJECTIVE: She is afebrile. Vital signs are stable.General: She is awake and alert. No acute distress. Gastrointestinal: Soft, nondistended, minimally tender. Incisions are intact. No significant leakage. Her abdominal drain has emptied 3775 mL of serosanguineous fluid. LABORATORY: White cell count 14,000, hemoglobin 11, hematocrit 33, electrolytes reviewed and unremarkable. ASSESSMENT/PLAN: A 73-year-old female with end-stage liver disease and recent acute blood loss anemia after catheter insertion. She is stable now. We will start her on a clear liquid diet. cc: MD Real Gupta MD
[2019-02-16] MEDS: ROCEPHIN 1 GM in NS 50 ML IV SCH (17:45)
[2019-02-17 05:20] LABS: BASO# 0.04 X1000 (0.0-0.2); BASO% 0.3 % (0.0-0.8); EOS# 0.41 X1000 (0.0-0.7); EOS% 2.8 % (0.0-10.0); HEMATOCRIT 30.4 % (37.0-47.0); HEMOGLOBIN 10.2 g/dL (12.0-16.0); IMM GRAN# 0.04 X1000 (0.0-0.04); IMM GRAN% 0.3 % (0.0-0.5); LYMPH# 1.62 X1000 (1.2-3.4); LYMPH% 11.2 % (20.5-51.1); MCH 31.4 PG (27-31); MCHC 33.6 g/dL (33-37); MCV 93.5 FL (81-99); MONO# 2.28 X1000 (0.11-0.59); MONO% 15.8 % (1.7-9.3); MPV 9.9 FL (7.4-10.4); NEUT# 10.08 X1000 (1.4-6.5); NEUT% 69.6 % (42.2-75.2); PLT 190 X1000 (130-400); RBC 3.25 XMIL (4.2-5.4); RDW 15.7 % (11.5-14.5); WBC 14.47 X1000 (4.8-10.8)
[2019-02-17 06:00] LABS: CALCIUM 8.1 mg/dL (8.8-10.2); CREATININE 1.1 mg/dL (0.5-0.9); POTASSIUM 4.1 mmol/L (3.5-5.1)
[2019-02-17] MEDS: LACTULOSE PO SCH ×3 (08:04→21:38)
[2019-02-17] MEDS: NEXIUM IV SCH ×2 (08:05→21:38)
--- NOTE | 2019-02-17 08:37 | PROGRESS NOTE ---
DATE: 02/17/2019 VITAL SIGNS: Stable with temperature 97.4 degrees, heart rate 87, respirations 20, blood pressure 129/51, and O2 saturation on room air 100%. LABORATORY: Hemoglobin 10.2, hematocrit 30.4, and white blood count 00112. Sodium 133, potassium 4.1, BUN 30, creatinine 1.1, glucose 128, calcium 8.1, ammonia 83, increased from 53 yesterday. OBJECTIVE: Ms. Fernandez is alert this morning and responsive. She seems appropriate. Chest is clear. Abdomen reveals bruising secondary to hematoma. Her NG was removed yesterday. She is encouraged to take her p.o. lactulose 3 times a day as ordered. I O over the last 24 hours is -1 L. Oral intake was 1620. PLAN: Increase to full liquids. She is transferred to the floor on current medications. Initially, she had been on Levophed, but this was discontinued and her blood pressure remained stable. When she is eating well on solid foods, transfer back to rehab will be considered. cc: MD Real Garcias MD
[2019-02-17] MEDS: MYCOSTATIN SUSP PO SCH (21:38)
[2019-02-18] MEDS: PHENERGAN PO PRN ×2 (01:20→20:55)
[2019-02-18 08:21] LABS: BASO# 0.02 X1000 (0.0-0.2); BASO% 0.1 % (0.0-0.8); EOS# 0.15 X1000 (0.0-0.7); HEMATOCRIT 34.9 % (37.0-47.0); HEMOGLOBIN 11.8 g/dL (12.0-16.0); IMM GRAN# 0.05 X1000 (0.0-0.04); IMM GRAN% 0.3 % (0.0-0.5); LYMPH# 1.58 X1000 (1.2-3.4); MCH 32.2 PG (27-31); MCHC 33.8 g/dL (33-37); MCV 95.1 FL (81-99); MONO# 1.76 X1000 (0.11-0.59); MONO% 12.3 % (1.7-9.3); MPV 9.9 FL (7.4-10.4); NEUT# 10.77 X1000 (1.4-6.5); NEUT% 75.3 % (42.2-75.2); PLT 179 X1000 (130-400); RBC 3.67 XMIL (4.2-5.4); RDW 15.6 % (11.5-14.5); WBC 14.33 X1000 (4.8-10.8)
[2019-02-18 08:25] LABS: AGAP 11; BUN 26 mg/dL (8-22); CALCIUM 8.6 mg/dL (8.8-10.2); CHLORIDE 96 mmol/L (98-107); COSMO 264; CREATININE 0.9 mg/dL (0.5-0.9); ESTIMATED GFR > 60; GLUCOSE 112 mg/dL (70-104); POTASSIUM 4.9 mmol/L (3.5-5.1); SODIUM 129 mmol/L (136-145); TCO2 22 mmol/L (25-35)
--- NOTE | 2019-02-18 09:54 | PROGRESS NOTE ---
DATE: 02/18/2019 VITAL SIGNS: Stable with temperature 97.8 degrees, heart rate 87, respirations 15, blood pressure 120/67. LABORATORY: Sodium low at 129, BUN 26, creatinine 0.9. Ammonia 73. The patient is a little confused, but is alert. Abdominal tube is draining peritoneal fluid. There was about a liter in the bottle. Abdomen is soft. Chest is clear. PLAN: Increase activity with her getting up in a chair and ambulating. Social service consult will be obtained for assistance with patient's return to rehab as early as tomorrow. cc: MD Real Garcias MD
[2019-02-18] MEDS: SODIUM CHLORIDE 0.9% INJ SCH (10:39)
[2019-02-18] MEDS: MYCOSTATIN SUSP PO SCH ×4 (10:39→20:55)
[2019-02-18] MEDS: NEXIUM IV SCH ×2 (10:40→20:55)
[2019-02-18] MEDS: LACTULOSE PO SCH ×3 (10:40→16:48)
[2019-02-18] MEDS: ROCEPHIN 1 GM in NS 50 ML IV SCH (16:54)
[2019-02-19] MEDS: NEXIUM IV SCH ×2 (08:33→20:41)
[2019-02-19] MEDS: LACTULOSE PO SCH ×3 (08:34→16:49)
[2019-02-19] MEDS: MYCOSTATIN SUSP PO SCH (08:34)
--- NOTE | 2019-02-19 09:51 | PROGRESS NOTE ---
DATE: 02/19/2019 VITAL SIGNS: Temperature 98.4 degrees, heart rate 104, respirations 18, blood pressure 130/65, O2 saturation on room air 95%. Serum ammonia elevated at 142, up from yesterday of 73. She is alert and no more confused than yesterday. Abdomen is soft. There continues to drain some ascitic fluid. It was hopeful that she could go back to rehab today, but with increasing ammonia level, this needs to be stable before she returns. GI is consulted for assistance. cc: MD Real Garcias MD
[2019-02-19] MEDS: DIFLUCAN 150 MG/NS 150 MG/75 ML IVPB IV SCH (16:48)
[2019-02-19] MEDS: ROCEPHIN 1 GM in NS 50 ML IV SCH (16:49)
[2019-02-19] MEDS ORDERED: SODIUM CHLORIDE 0.9% INJ ONE (17:18)
[2019-02-19] MEDS ORDERED: PHENERGAN IV ONE (17:18)
[2019-02-19] MEDS: PHENERGAN PO PRN (20:41)
[2019-02-20 01:48] LABS: ALBUMIN BODY FLUID 0.5 g/dL; BODY FLUID SOURCE ASCETIC FLUID
[2019-02-20 02:11] LABS: BODY FLUID SOURCE ASCETIC FLUID; WBC BF 927 /cumm
[2019-02-20 02:41] LABS: POLYS 52 %
[2019-02-20 02:42] LABS: MONOS 48 %
[2019-02-20 07:09] LABS: BASO# 0.01 X1000 (0.0-0.2); BASO% 0.1 % (0.0-0.8); EOS# 0.21 X1000 (0.0-0.7); EOS% 1.1 % (0.0-10.0); HEMATOCRIT 35.6 % (37.0-47.0); HEMOGLOBIN 12.2 g/dL (12.0-16.0); IMM GRAN# 0.09 X1000 (0.0-0.04); IMM GRAN% 0.5 % (0.0-0.5); LYMPH# 2.18 X1000 (1.2-3.4); LYMPH% 11.6 % (20.5-51.1); MCH 31.7 PG (27-31); MCHC 34.3 g/dL (33-37); MCV 92.5 FL (81-99); MONO# 2.49 X1000 (0.11-0.59); MONO% 13.2 % (1.7-9.3); MPV 10.1 FL (7.4-10.4); NEUT# 13.83 X1000 (1.4-6.5); NEUT% 73.5 % (42.2-75.2); PLT 229 X1000 (130-400); RBC 3.85 XMIL (4.2-5.4); RDW 15.3 % (11.5-14.5); WBC 18.81 X1000 (4.8-10.8)
[2019-02-20 07:36] LABS: AGAP 12; ALB/GLOB RATIO 0.6; ALBUMIN 2.5 g/dL (3.5-5.0); ALKALINE PHOSPHATASE 136 U/L (32-104); BUN 28 mg/dL (8-22); CALCIUM 8.7 mg/dL (8.8-10.2); CHLORIDE 91 mmol/L (98-107); COSMO 255; CREATININE 0.9 mg/dL (0.5-0.9); ESTIMATED GFR > 60; GLUCOSE 96 mg/dL (70-104); GOT 85 U/L (10-30); GPT 33 U/L (10-36); POTASSIUM 4.8 mmol/L (3.5-5.1); SODIUM 124 mmol/L (136-145); TCO2 21 mmol/L (25-35); TOTAL BILIRUBIN 3.23 mg/dL (0.20-1.00); TOTAL PROTEIN 6.7 g/dL (6.3-8.3)
[2019-02-20 08:33] LABS: INR 1.98; PROTIME 23.5 Seconds (11.0-16.0)
[2019-02-20] MEDS: LACTULOSE PO SCH ×4 (09:00→20:09)
[2019-02-20 09:22] LABS: BASO# 0.02 X1000 (0.0-0.2); BASO% 0.1 % (0.0-0.8); EOS# 0.14 X1000 (0.0-0.7); EOS% 0.8 % (0.0-10.0); HEMATOCRIT 36.4 % (37.0-47.0); HEMOGLOBIN 12.5 g/dL (12.0-16.0); IMM GRAN# 0.14 X1000 (0.0-0.04); IMM GRAN% 0.8 % (0.0-0.5); LYMPH# 1.39 X1000 (1.2-3.4); MCH 31.9 PG (27-31); MCHC 34.3 g/dL (33-37); MCV 92.9 FL (81-99); MONO# 1.52 X1000 (0.11-0.59); MONO% 8.7 % (1.7-9.3); MPV 10.1 FL (7.4-10.4); NEUT# 14.21 X1000 (1.4-6.5); NEUT% 81.6 % (42.2-75.2); PLT 197 X1000 (130-400); RBC 3.92 XMIL (4.2-5.4); RDW 15.3 % (11.5-14.5); WBC 17.42 X1000 (4.8-10.8)
[2019-02-20] MEDS ORDERED: ALBUMIN 25% IV ONE (10:15)
[2019-02-20] MEDS: NEXIUM IV SCH ×2 (11:32→20:09)
[2019-02-20] MEDS: DIFLUCAN 150 MG/NS 150 MG/75 ML IVPB IV SCH (11:32)
[2019-02-20] MEDS: SODIUM CHLORIDE 0.9% INJ SCH (11:33)
[2019-02-20] MEDS: NS 1,000 ML IV SCH (12:46)
--- NOTE | 2019-02-20 16:01 | GASTROENTEROLOGY CONSULTATION ---
DATE: 02/20/2019 ATTENDING PHYSICIAN: Dr. Ruben Goss. PRIMARY APARTMENT PROPERTY MANAGER: Dr. Tillman. REASON FOR CONSULT: Constipation. HISTORY OF PRESENT ILLNESS: Ms. Fernandez is a 73-year-old female who was admitted on 02/13/2019 for hypotension and low hemoglobin. She was recently discharged from the hospital. At that time she had an ascitic fluid catheter placement in the right abdomen with Dr. Mcbride. This was done to drain out prominent ascites as she has severe cirrhosis of the liver, end-stage. She is being followed by Dr. Tillman. During the hospitalization she was noted to have severe constipation. She was started on lactulose 3 times a day with minimal improvement. Gastroenterology was consulted for further management. PAST MEDICAL HISTORY: 1. End-stage liver disease. 2. Ascites. 3. Hepatic encephalopathy. 4. Hepatorenal syndrome. 5. Hypertension. 6. History of IgA nephropathy. 7. History of fibromyalgia. PAST SURGICAL HISTORY: PleurX catheter placement in the right side of the abdomen for severe ascites [address] Mcbride, cholecystectomy, back surgery, 2 shoulder surgeries, hysterectomy. FAMILY HISTORY: Father heart disease. SOCIAL HISTORY: She is a former smoker. No history alcohol or drug abuse. ALLERGIES: Codeine, morphine, Buprenex, hydrocodone, Cipro, Flagyl, propoxyphene, Klonopin. MEDICATIONS: In the hospital include fluconazole, Blistex medicated salas lip balm, Nexium twice a day, normal saline 75 mL/hour, Phenergan 25 mg every 6 hours, ceftriaxone 1 g every day, and lactulose 30 mL 4 times a day. DIET: She is on a renal diet. REVIEW OF SYSTEMS: Denies any fevers, rigors, or chills. Does complain of abdominal discomfort. She has a PleurX catheter in the right upper quadrant. She also complains of some skin rash and bruising in the abdominal wall which she thinks is secondary to the Lovenox shots. She has some swelling in the lower extremities. She denies any vomiting blood or passing blood in the stools. She has chronic arthritis. PHYSICAL EXAMINATION: Vital Signs: Temperature 97.4 degrees, pulse rate of 90, respiratory rate 18, blood pressure 140/57, saturating 100% on room air. Body weight of 167 pounds, BMI 28.7 kg/m2. General appearance: Moderately built, moderately nourished, lying in bed, in no acute distress. HEENT: Pale conjunctivae. Icteric sclerae. Neck: Supple. Abdomen: Distended. She has a PleurX catheter in the right upper abdomen for ascites drainage. Yesterday they removed about 2.5 bottles. Today the catheter is clamped. She has bruising over abdominal wall skin which she attributes to Lovenox shots. No guarding or rebound. Extremities: No cyanosis, clubbing. Neurologic: She is awake, alert. Answers all questions. LABS: Hemoglobin and hematocrit is 12.7 and 36.4, white count of 17.42, platelet count of 197,000. INR 1.9 and PT of 23.5. Sodium 124, potassium 4.8, chloride 91, bicarb 21, anion gap 12, BUN of 28, creatinine 0.9, glucose of 96, calcium is 8.7, total bilirubin is 3.23, AST 85, ALT 33, alkaline phosphatase 130, total protein 6.2, albumin of 2.5. Ascitic fluid showing 927 white cells, polymorphonuclear is 52%. This is likely suggestive of spontaneous bacterial peritonitis. Her ascitic fluid culture is pending. Her urine culture is showing yeast. Stool occult blood is negative. IMPRESSION: 1. Constipation. 2. End-stage liver disease secondary to liver cirrhosis. 3. Severe ascites requiring a PleurX catheter placement 2 days ago on admission. 4. Hepatic encephalopathy. 5. Possible hepatorenal syndrome. 6. History of IgA nephropathy. 7. History of fibromyalgia. 8. Anemia. 9. Coagulopathy. 10. Hematoma in the left lower quadrant in the abdomen and skin bruising noted on the abdomen. 11. Pneumoperitoneum. 12. Admission with hypotension and anemia. 13. Ascitic fluid studies possibly pointing towards spontaneous bacterial peritonitis or it could be secondary to peritonitis because of recent intervention from PleurX catheter placement in the abdomen. PLAN: 1. She will continue on ceftriaxone. Will continue on Nexium twice daily. She will continue on fluconazole per the primary care team. She is on maintenance fluids. She is on a renal diet. We will follow up the cultures on the ascitic fluid and that will help adjust the antibiotics. If the patient's infection persists then we may have to remove the PleurX catheter from the abdomen. 2. We will increase lactulose to 30 mL 4 times a day. We will start her on Xifaxan twice daily as well. We will give two doses of soapsuds enemas for constipation. 3. I have discussed the above plan with the patient and the nursing staff and all questions answered. Please call us with any further questions. cc: MD Real Beltran MD Robert Allen, MD Jason R. Seale, MD MTDD
[2019-02-20] MEDS: ROCEPHIN 1 GM in NS 50 ML IV SCH ×2 (16:56→18:00)
[2019-02-21] MEDS: NS 1,000 ML IV SCH ×3 (00:35→14:38)
[2019-02-21 08:00] LABS: CALCIUM 8.1 mg/dL (8.8-10.2); CREATININE 1.1 mg/dL (0.5-0.9); POTASSIUM 4.5 mmol/L (3.5-5.1)
[2019-02-21] MEDS: LACTULOSE PO SCH ×4 (09:36→21:42)
[2019-02-21] MEDS: NEXIUM IV SCH (09:37)
[2019-02-21] MEDS: DIFLUCAN 150 MG/NS 150 MG/75 ML IVPB IV SCH (09:38)
--- NOTE | 2019-02-21 09:58 | PROGRESS NOTE ---
DATE: 02/21/2019 Vital Signs: Temperature 97.6 degrees, heart rate 95, respirations 16, blood pressure 153/63, and O2 saturation 100% on room air. Ammonia level is still elevated to 120. However, her mental state seems baseline, and she answers questions appropriately. Sodium level continues to be low at 124. Chest is clear. Abdomen is soft. There is mild to moderate ascites. There is no growth in ascitic fluid on culture. GI consult recommended increase in lactulose, and gave her laxatives to assist BM's. She had a couple of soft BM's yesterday. I would like to see her ammonia level continuing to trend down, and also improvement in her sodium level before discharge. Brief discussion was made with the social media analyst, and plans will be either to go to rehab, [facility], or inpatient hospice. Hopefully, she can go to rehab early next week. cc: MD Real Garcias MD
[2019-02-21] MEDS ORDERED: VANCOMYCIN IV PER PHARMACY MISC SCH (19:45)
--- NOTE | 2019-02-21 19:51 | PROVIDER PROGRESS NOTE ---
Progress Note S: No acute overnight events. Afebrile. No N/V, CP, SOB. +Abdominal pain. No rectal bleeding or melena. No confusion. O: Last Vital Signs Temp 98.7 F 02/21/19 19:26 Pulse 95 H 02/21/19 19:26 Resp 18 02/21/19 16:00 BP 138/52 02/21/19 19:26 Pulse Ox 100 02/21/19 19:26 Height 5 ft 4 in Weight 167 lb GEN: awake, alert, NAD HEENT: mild icterus, MMM, EOMI NECK: supple, no JVD PULM: CTAB, no wheezing CV: RRR, no murmurs ABD: distended, anterior bruising, RUQ pleurex catheter in place, BS present, minimal ascites EXT: no cce, peripheral bruising NEURO: nonfocal, no asterixis LABS: 02/21/19 02/21/19 02/21/19 07:14 07:14 07:14 Sodium 124 L Potassium 4.5 Chloride 95 L Carbon Dioxide 15 L BUN 35 H Creatinine 1.1 H Calcium 8.1 L Ammonia 121 H Plasma Lactate 1.8 A/P: Ms. Aletha Fernandez is a 73 year old woman with decompensated JOE with ascites who presented with hypotension in the setting of intraabdominal bleeding from LLQ hematoma and bleeding around pleurex catheter. She was seen by surgery who felt her bleeding was post-surgical and not acute. GI was consulted for elevated ammonia; however, patient is AAOx3 without asterixis. Ammonia is not a good surrogate for clinical exam; therefore, I do not recommend trending ammonia levels. Patient is net 15 liters negative from daily drainage of ascites. She has also become progressively hyponatremic likely from excessively fluid removal. Ascitic fluid analysis reveals peritonitis likely secondary to drain p lacement. She is is currently on Cephalexin and diflucan. Of note, patient currently does not have IV access. # Secondary peritonitis - recommend establishing IV access - ordered 100gm IV albumin 25% today; give 75g again on Sunday night - stopped cephalexin; started vancomycin and zosyn - recommend ID consultation to tailor antibiotics and duration of therapy - recommend discussing with surgery removal of pleurex catheter unless plans is to discharged on hospice # Hypovolemic hyponatremia - albumin as above; avoid removing fluid from drain unless symptomatic # Decompensated JOE cirrhosis - Ascites: stop draining pleurex catheter unless patient becomes symptomatic - PSE: give lactulose only for constipation; patient is not encephalopathic; avoid sedating medications - EV: no overt bleeding; ordered CBC in AM; transfuse prn goal hgb 7-8 - HCC screening: no hepatoma on CT # Elevated ammonia: do not trend # Acute blood loss: post-surgical intraabdominal bleed; BP improved with trans fusion; ascites fluid clear; no overt GI bleeding Recommend GOC discussion with patient and family as patient prognosis is poor with peritonitis. Will follow with you. Please call with questions.
[2019-02-21] MEDS ORDERED: KEFLEX PO SCH (20:00)
[2019-02-21] MEDS ORDERED: ALBUMIN 25% IV ONE (20:08)
[2019-02-21] MEDS ORDERED: VANCOMYCIN 1,650 MG in NS 250 ML IV ONE (21:00)
[2019-02-21] MEDS ORDERED: LACTULOSE PO SCH (21:00)
[2019-02-21] MEDS: ZOSYN 3.375 GM in NS 50 ML IV SCH (21:41)
[2019-02-22 06:56] LABS: INR 2.56; PROTIME 28.2 Seconds (11.0-16.0)
[2019-02-22 07:17] LABS: ALB/GLOB RATIO 1.5; ALBUMIN 3.5 g/dL (3.5-5.0); CALCIUM 8.4 mg/dL (8.8-10.2); CREATININE 1.2 mg/dL (0.5-0.9); POTASSIUM 4.1 mmol/L (3.5-5.1); TOTAL BILIRUBIN 3.02 mg/dL (0.20-1.00); TOTAL PROTEIN 5.9 g/dL (6.3-8.3)
[2019-02-22 07:51] LABS: BASO# 0.01 X1000 (0.0-0.2); BASO% 0.1 % (0.0-0.8); EOS# 0.17 X1000 (0.0-0.7); EOS% 1.8 % (0.0-10.0); HEMATOCRIT 25.3 % (37.0-47.0); HEMOGLOBIN 8.5 g/dL (12.0-16.0); IMM GRAN# 0.04 X1000 (0.0-0.04); IMM GRAN% 0.4 % (0.0-0.5); LYMPH# 1.17 X1000 (1.2-3.4); LYMPH% 12.7 % (20.5-51.1); MCH 31.6 PG (27-31); MCHC 33.6 g/dL (33-37); MCV 94.1 FL (81-99); MONO# 1.57 X1000 (0.11-0.59); MONO% 17.1 % (1.7-9.3); MPV 10.2 FL (7.4-10.4); NEUT# 6.23 X1000 (1.4-6.5); NEUT% 67.9 % (42.2-75.2); PLT 116 X1000 (130-400); RBC 2.69 XMIL (4.2-5.4); RDW 15.1 % (11.5-14.5); WBC 9.19 X1000 (4.8-10.8)
[2019-02-22] MEDS: ZOSYN 3.375 GM in NS 50 ML IV SCH ×4 (10:00→23:26)
[2019-02-22] MEDS: NEXIUM PO SCH (10:19)
[2019-02-22] MEDS: DIFLUCAN PO SCH (10:19)
[2019-02-22] MEDS: LACTULOSE PO SCH ×2 (10:19→21:03)
[2019-02-22] MEDS ORDERED: VITAMIN K 10 MG in NS 50 ML IV ONE (16:55)
[2019-02-22] MEDS ORDERED: NS 500 ML IV SCH (18:30)
--- NOTE | 2019-02-22 19:07 | PROGRESS NOTE ---
DATE: 02/22/2019 SUBJECTIVE: A 73-year-old white female seen the patient basically complains of thirsty. She had a good bowel movements. She has been admitted on 02/13/2018 for altered mental status with underlying cirrhosis of liver due to JOE and had a PleurX catheter on the right side with a lot of hematoma noted. Interval history was reviewed. PAST MEDICAL HISTORY: Reviewed. PAST SURGICAL HISTORY: Reviewed. MEDICINES: Reviewed. ALLERGIES: Morphine, codeine, hydrocodone. EXAMINATION: Temperature is 98 degrees, pulse 94, blood pressure is 122/40, room air 100%, weight is 146 pounds reduced from 180 pounds.General Appearance: Is feeble, slightly pale and slightly icteric. Neck: Supple. Chest: Bilateral air entry. Heart: Sounds are regular. Belly: Is soft. Ascites noted with bruising noted with PleurX catheter. Extremities: 1+ edema. Had a inflamed callus over the dorsal area of the left foot noted. LABS: CBC. White cell count 9, hematocrit 25, platelets 116,000. PT 28, INR 2.56. Sodium 125, potassium 4.1, BUN 31, creatinine 1.2, total bilirubin 3.0, albumin is 3.5. Ascitic fluid 920 white cells, polymorphs 52 ANC almost more than close to 500. Fluid albumin is 0.5. Serum albumin is 3.5 and the SAG is more than 1.1. Ammonia levels was are pending. ASSESSMENT AND PLAN: 1. 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 2. Ammonia encephalopathy. 3. Status post Pleurx catheter with ascites. 4. Possible subacute bacterial endocarditis, coagulopathy, INR is 2.5. PLAN OF CARE: 1. For ammonia encephalopathy patient is getting lactulose 30 mg p.o. b.i.d. Urine has yeast infection on Diflucan. Continue on Nexium. 2. Possible subacute bacterial peritonitis, given vancomycin and Zosyn can always change to the Levaquin. Plan is today will transfuse 1 unit of packed RBC and also vitamin K 10 units and continue on lactulose. If it is worsening increase the lactulose 3 times daily and check the ammonia level in the morning. 3. Hyponatremia due to volume overload. Continue on fluid restrictions and low- salt diet and will follow up. cc: MD Real Rodriguez MD MTDD
[2019-02-23] MEDS: ZOSYN 3.375 GM in NS 50 ML IV SCH ×4 (01:55→21:18)
[2019-02-23 06:38] LABS: BASO# 0.02 X1000 (0.0-0.2); BASO% 0.2 % (0.0-0.8); EOS% 2.5 % (0.0-10.0); HEMATOCRIT 30.3 % (37.0-47.0); HEMOGLOBIN 10.3 g/dL (12.0-16.0); IMM GRAN# 0.09 X1000 (0.0-0.04); IMM GRAN% 0.7 % (0.0-0.5); LYMPH# 1.23 X1000 (1.2-3.4); LYMPH% 10.1 % (20.5-51.1); MCH 31.4 PG (27-31); MCV 92.4 FL (81-99); MONO# 2.02 X1000 (0.11-0.59); MONO% 16.7 % (1.7-9.3); MPV 10.7 FL (7.4-10.4); NEUT# 8.47 X1000 (1.4-6.5); NEUT% 69.8 % (42.2-75.2); PLT 114 X1000 (130-400); RBC 3.28 XMIL (4.2-5.4); RDW 15.9 % (11.5-14.5); WBC 12.13 X1000 (4.8-10.8)
[2019-02-23 06:50] LABS: CALCIUM 7.8 mg/dL (8.8-10.2); POTASSIUM 4.3 mmol/L (3.5-5.1)
[2019-02-23] MEDS: NEXIUM PO SCH (08:25)
[2019-02-23] MEDS: DIFLUCAN PO SCH (08:25)
[2019-02-23] MEDS: LACTULOSE PO SCH ×3 (08:26→18:05)
[2019-02-23] MEDS: XIFAXAN PO SCH ×2 (09:39→21:19)
--- NOTE | 2019-02-23 17:45 | PROGRESS NOTE ---
DATE: 02/23/2019 SUBJECTIVE: The patient is slightly obtunded and did receive a unit of blood yesterday. She is not eating at lunch time. OBJECTIVE: Vital Signs: Temperature is 98 degrees, pulse 92, blood pressure 131/46. HEENT: Slightly icteric and pale. Lungs: Bilateral air entry. Heart: Sounds are regular. Abdomen: Belly is soft with ascites and bruising noted. Neurologic: No asterixis noted. INVESTIGATIONS: CBC: White cell count 12, hematocrit 30, platelets 114,000. Sodium 121, potassium 4.3, chloride 93, BUN 33, creatinine 1. Ammonia level is creeping up to 172. ASSESSMENT AND PLAN: 1. Anemia status post 1 unit of packed RBC. 2. Ammonia encephalopathy. I increased the lactulose 30 p.o. t.i.d. and started on Xifaxan 550 p.o. b.i.d. 3. Hyponatremia due to volume overload. Continue fluid restrictions and daily weights. 4. Ascites with subacute bacterial peritonitis on antibiotics and PleurX catheter. 5. We will repeat the labs in the morning along with ammonia levels, and Is going to follow up. LEVEL OF DOCUMENTATION: 25 minutes. cc: MD Real Rodriguez MD MTDD
[2019-02-23] MEDS ORDERED: VANCOMYCIN 1,300 MG in NS 250 ML IV SCH (21:00)
[2019-02-24] MEDS: ZOSYN 3.375 GM in NS 50 ML IV SCH ×4 (01:48→21:05)
[2019-02-24 08:07] LABS: BASO# 0.02 X1000 (0.0-0.2); BASO% 0.2 % (0.0-0.8); EOS# 0.25 X1000 (0.0-0.7); EOS% 2.3 % (0.0-10.0); HEMATOCRIT 35.3 % (37.0-47.0); HEMOGLOBIN 11.9 g/dL (12.0-16.0); IMM GRAN# 0.03 X1000 (0.0-0.04); IMM GRAN% 0.3 % (0.0-0.5); MCH 31.7 PG (27-31); MCHC 33.7 g/dL (33-37); MCV 94.1 FL (81-99); MONO# 1.52 X1000 (0.11-0.59); MONO% 13.9 % (1.7-9.3); MPV 10.6 FL (7.4-10.4); NEUT# 8.04 X1000 (1.4-6.5); NEUT% 73.3 % (42.2-75.2); PLT 125 X1000 (130-400); RBC 3.75 XMIL (4.2-5.4); RDW 16.9 % (11.5-14.5); WBC 10.96 X1000 (4.8-10.8)
[2019-02-24 08:29] LABS: CALCIUM 8.8 mg/dL (8.8-10.2); POTASSIUM 3.9 mmol/L (3.5-5.1)
--- NOTE | 2019-02-24 08:37 | PROGRESS NOTE ---
DATE: 02/24/2019 VITAL SIGNS: Temperature 97.5 degrees, heart rate 92, respirations 16, blood pressure 138/82, O2 saturation on room air 97%. Patient is fairly alert and answers questions appropriately. She is anxious to leave the hospital. Her ammonia yesterday was 172. Lactulose had been decreased to b.i.d., but then increase by Dr. Christina to t.i.d. Additional antibiotics were ordered for peritonitis. Abdomen is nontender. Hematoma seems to be slowly resolving. Hematocrit this morning was 35. PLAN: Continue current management. Hopefully, she will be able to go back to rehab this week. cc: MD Real Garcias MD
[2019-02-24] MEDS: LACTULOSE PO SCH ×3 (10:21→18:06)
[2019-02-24] MEDS: NEXIUM PO SCH (10:21)
[2019-02-24] MEDS: DIFLUCAN PO SCH (10:21)
[2019-02-24] MEDS: XIFAXAN PO SCH ×2 (10:21→21:04)
[2019-02-25] MEDS: ZOSYN 3.375 GM in NS 50 ML IV SCH ×2 (02:24→09:43)
[2019-02-25 07:57] VITALS: BP 128/44
[2019-02-25] MEDS: LACTULOSE PO SCH (09:44)
[2019-02-25] MEDS: DIFLUCAN PO SCH (09:44)
[2019-02-25] MEDS: NEXIUM PO SCH (09:44)
[2019-02-25] MEDS: XIFAXAN PO SCH (09:44)
[2019-02-25] MEDS ORDERED: KEFLEX PO SCH (14:00)
--- NOTE | 2019-02-25 15:47 | DISCHARGE SUMMARY ---
ADMISSION DATE: 02/13/2019 DISCHARGE DATE: 02/25/2019 FINAL DIAGNOSES: Anemia secondary to large abdominal wall hematoma and coagulopathy related to chronic liver disease, liver failure, ascites, peritonitis, hepatic encephalopathy. DISCHARGE MEDICATION: Usual medication at home except that diuretics are discontinued as well as potassium. She is given Keflex 500 mg q.i.d. (30). CONSULTATION: With GI, which include Dr. Schwarz and Dr. Mccoy. Ms. Fernandez is a 73-year-old white female who unfortunately has had to return to the hospital several times recently with recurrent ascites. She had a paracentesis catheter placed during her last admission a few weeks ago and she became weak and confused at home. Ammonia donna again and hematocrit dropped. She required several units of blood transfused. She had problems taking her lactulose initially, but over the last few days serum ammonia has gradually decreased. Maximum ammonia level on 02/23 was 228. Yesterday ammonia was 72. Lab is pending this morning, but ammonia level is expected to decrease. Discussion has been made with her daughter and the patient recommending rehab placement, but the patient desires to go home and states that nothing is done for her at rehab. She is sent home against medical advice to return to the office in 1 week for followup. cc: MD Real Garcias MD
== END 2019-02-25 11:33 | disposition home health service (06) | DRG 811 ==
LOC: SUPCPDRO → ED 15:45 → ICU 18:53 → 1N 02-17 10:50
PROVIDERS: ADMIT Family Medicine; ATTEND Family Medicine

== ENCOUNTER 2019-03-08 08:37 | Inpatient (IN) ==
--- NOTE | 2019-03-08 08:51 | PROVIDER DOCUMENTATION ---
HPI-Neurological Disorder - General Chief Complaint: Altered Mental Status Stated Complaint: Unresponsive Time Seen by Provider: 03/08/19 08:47 Source: family, EMS Unable to obtain history due to:: altered Allergies/Adverse Reactions: Patient Allergies Allergy/AdvReac Type Severity Reaction Status Date / Time buprenorphine [From Buprenex] Allergy Unknown Verified 03/08/19 09:11 ciprofloxacin [From Cipro] Allergy Unknown Verified 03/08/19 09:11 clonazepam Allergy Unknown Verified 03/08/19 09:11 codeine Allergy Unknown Verified 03/08/19 09:11 hydrocodone [From Lortab] Allergy Unknown Verified 03/08/19 09:11 metronidazole [From Flagyl] Allergy Unknown Verified 03/08/19 09:11 morphine Allergy Unknown Verified 03/08/19 09:11 - History of Present Illness-Neuro Nature of Presenting Problem: 73 y/o WF sent to ER from rehab after family noticed she was increasingly becoming less responsive yesterday. Pt has hx of cirrhosis with AMS due in part to chronically elevated ammonia. On arrival EMS noted that her blood sugar was 114. Pt was just admitted on the of this month for hepatic encephalopathy and hepatorenal syndrome. Family notes that she has had a large change in her mental status yesterday and today. Severity: reports: moderate Onset/Duration: reports: 2 days ago Timing: reports: getting worse Context: reports: found unresponsive by family Character of Altered Mental Status: reports: decreased responsiveness Any recent trauma/injury?: reports: none Character of Deficits: reports: decreased ability to stand, decreased ability to walk Cognitive Baseline: poor alertness Gait Baseline: walks only with assistance Associated Symptoms: reports: denies symptoms Similar Symptoms Previously?: Yes Recently seen or treated by another doctor?: Yes (Pt was admitted here on feb 25) Review of Systems - Adult - REVIEW OF SYSTEMS - ADULT ROS:: unobtainable per condition Constitutional: reports: see HPI Eyes: reports: see HPI Ears, Nose, Mouth & Throat: reports: see HPI Cardiovascular: reports: see HPI Respiratory: reports: see HPI Gastrointestinal: reports: see HPI Genitourinary: reports: see HPI Musculoskeletal: reports: see HPI Integumentary: reports: see HPI Neurological: reports: see HPI Psychiatric: reports: see HPI Endocrine: reports: see HPI Hematologic/Lymphatic: reports: see HPI Allergic/Immunologic: reports: see HPI All Other Systems: Reviewed and Negative Past History - Adult - PAST MEDICAL HISTORY-ADULT Review of Records: reports: Nursing Assessment Review, Medications Reviewed, Social history reviewed & non-contributory. Physical Exam- Neurological - Physical Exam-Neuro Exam Limited by: altered mental status Initial Vital Signs Reviewed: Yes General Appearance: no apparent distress, lethargic Eye Exam: bilateral eye: normal inspection, PERRL HENMT: normocephalic/atraumatic, moist mucous membranes, normal ENT inspection, TMs normal Head Injury: no evidence of injury Neck: supple, normal inspection Respiratory: chest non-tender, lungs clear, normal breath sounds Cardiovascular: normal peripheral pulses, regular rate, rhythm Abdominal Exam: normal bowel sounds, soft, distended (hx of cirrhosis) Lymphatic: no adenopathy - Glascow Coma Scale Best Eye Response: (2) open to pain Best Verbal Response: (2) incomprehsible sounds Best Motor Response: (5) localizes to pain (9) Progress - PLAN OF CARE/RESULTS Progress/Plan/Lab Results: Vital Signs - 8 hr 03/08/19 08:40 03/08/19 08:54 03/08/19 09:36 Temperature 98.3 F Pulse Rate 86 86 90 Respiratory Rate 17 20 18 Blood Pressure 109/47 109/47 118/46 O2 Sat by Pulse Oximetry 100 100 100 03/08/19 10:02 Temperature Pulse Rate 90 Respiratory Rate 24 Blood Pressure 104/50 O2 Sat by Pulse Oximetry 100 Laboratory Results - last 24 hr 03/08/19 03/08/19 03/08/19 09:30 09:51 10:10 WBC 9.79 RBC 3.85 L Hgb 12.5 Hct 37.2 MCV 96.6 MCH 32.5 H MCHC 33.6 RDW Std Deviation 18.7 H Plt Count 124 L MPV 10.5 H Immature Gran % (Auto) 0.2 Neut % (Auto) 72.6 Lymph % (Auto) 11.3 L Sibley % (Auto) 15.2 H Eos % (Auto) 0.5 Baso % (Auto) 0.2 Immature Gran # (Auto) 0.02 Neut # (Auto) 7.10 H Lymph # (Auto) 1.11 L Sibley # (Auto) 1.49 H Eos # (Auto) 0.05 Baso # (Auto) 0.02 Specimen Type ARTERIAL Sample Site L RADIAL pH 7.42 pCO2 24 L pO2 55 L HCO3 19.1 L Base Excess -7.3 L Oxyhemoglobin 89.7 L* ABG O2 Sat (Calculated) 14.3 L ABG O2 Saturation 92.2 L ABG Carboxyhemoglobin 1.80 ABG Methemoglobin 0.9 Wolfgang Test YES A-a O2 Difference 65.0 Total Hemoglobin 11.3 L Lactate 2.50 H FiO2 % 21.0 Sodium Potassium Chloride Carbon Dioxide Anion Gap BUN Creatinine Estimated GFR/1.73 m2 BUN/Creatinine Ratio Glucose POC Glucose 75 Calculated Osmolality Calcium Total Bilirubin AST ALT Alkaline Phosphatase Ammonia Total Protein Albumin Globulin Albumin/Globulin Ratio Urine Source Urine Color Urine Turbidity Urine pH Ur Specific [place] Urine Protein Ur Glucose (Stick) Ur Ketones (Stick) Urine Blood Urine Nitrite Urine Bilirubin Urobilinogen Dipstick Urine Leukocytes Urine WBC (Auto) Urine RBC (Auto) U Epithel Cells (Auto) Urine Bacteria (Auto) 03/08/19 03/08/19 03/08/19 10:10 10:10 11:20 WBC RBC Hgb Hct MCV MCH MCHC RDW Std Deviation Plt Count MPV Immature Gran % (Auto) Neut % (Auto) Lymph % (Auto) Sibley % (Auto) Eos % (Auto) Baso % (Auto) Immature Gran # (Auto) Neut # (Auto) Lymph # (Auto) Sibley # (Auto) Eos # (Auto) Baso # (Auto) Specimen Type Sample Site pH pCO2 pO2 HCO3 Base Excess Oxyhemoglobin ABG O2 Sat (Calculated) ABG O2 Saturation ABG Carboxyhemoglobin ABG Methemoglobin Wolfgang Test A-a O2 Difference Total Hemoglobin Lactate FiO2 % Sodium 129 L Potassium 5.5 H Chloride 106 Carbon Dioxide 12 L Anion Gap 11 BUN 57 H Creatinine 2.5 H Estimated GFR/1.73 m2 19 BUN/Creatinine Ratio 23 Glucose 82 POC Glucose Calculated Osmolality 274 Calcium 8.0 L Total Bilirubin 2.45 H AST 77 H ALT 34 Alkaline Phosphatase 178 H Ammonia 203 H Total Protein 6.4 Albumin 2.0 L Globulin 4.4 Albumin/Globulin Ratio 0.5 Urine Source CATH Urine Color YELLOW Urine Turbidity HAZY Urine pH 5.5 Ur Specific [place] 1.017 Urine Protein TRACE A Ur Glucose (Stick) NEGATIVE Ur Ketones (Stick) NEGATIVE Urine Blood NEGATIVE Urine Nitrite NEGATIVE Urine Bilirubin NEGATIVE Urobilinogen Dipstick NORMAL Urine Leukocytes TRACE A Urine WBC (Auto) <10 Urine RBC (Auto) <10 U Epithel Cells (Auto) <10 Urine Bacteria (Auto) NEGATIVE Orders Category Date Time Status Rodríguez Cath Insertion ORDERED Care 03/08/19 11:13 Active Nursing- Obtain EKG ONCE Care 03/08/19 08:51 Active CHEST-1 VIEW [RAD] Stat Exams 03/08/19 08:[address] HEAD W/O CONTRAST [CT] Stat Exams 03/08/19 08:51 Completed ABG [RESP] Routine Lab 03/08/19 09:30 Completed AMMONIA [CHEM] Stat Lab 03/08/19 10:10 Completed BLOOD CULTURE [BLDCUL] Stat Lab 03/08/19 11:58 Ordered CBC WITH ELECTRONIC DIFF [HEME] Stat Lab 03/08/19 10:10 Completed COMPREHENSIVE METABOLIC PANEL [CHEM] Stat Lab 03/08/19 10:10 Completed LACTATE, PLASMA [CHEM] Stat Lab 03/08/19 09:30 Ordered URINALYSIS W/POSS RFLX CULT [URINALYSIS] Stat Lab 03/08/19 11:20 Completed URINE CULTURE [RM] Routine Lab 03/08/19 11:53 Received 0.9% Sodium Chloride Inj [Ns] 1,000 ml Med 03/08/19 11:58 Active IV 999 mls/hr CefTRIAXONE [Rocephin] 1 gm Med 03/08/19 11:58 Active 0.9% Sodium Chloride Inj [Ns] 50 ml IV NOW Oxygen Device Stat Oth 03/08/19 08:53 Active EKG [EKG] Stat Ther 03/08/19 08:51 Ordered Result Diagrams: 03/08/19 10:10 03/08/19 10:10 - EKG 1 Time of EKG reading by physician:: 09:46 EKG Read and Signed by:: Daryn Sotelo EKG Interpretation (*Must complete 3 of following elements*): Abnormal (septal infarct age undetermined) Rate: 91 Rhythm: normal sinus QRS: normal VT Interval: normal Departure - Departure Date of Disposition Decision: 03/08/19 Time of Disposition Decision: 12:00 DIAGNOSIS: Hepatic encephalopathy, Hyponatremia, Hyperkalemia, Renal insufficiency, Increased ammonia level, UTI (urinary tract infection), Altered mental status Disposition: ADMITTED INPATIENT 09 Certified Medical Emergency: Emergent Condition: Serious Referrals and Follow-Ups: Rbuen Goss MD [Primary Care Provider] - - Critical Care Note This patient required my direct & personal management of CC.: No Attestation - Physician/ AMBER Attestation Patient care was provided by Advanced Practice Provider:: No The physician spent face to face time with patient:: Yes Advanced Practice Provider documentation review:: Supervising physician onsite and consulted in the evaluation and care of this patient. The physician did have a face to face encounter with the patient.
--- NOTE | 2019-03-08 09:29 | Diag Imaging Result Doc PS360 ---
EXAM: CT HEAD W/O CONTRAST HISTORY: ams TECHNIQUE: CT head without contrast COMPARISON: None. FINDINGS: No parenchymal hemorrhage. No epidural or subdural hematoma. No subarachnoid hemorrhage. There is atrophy with chronic microvascular ischemic changes. No mass identified on this noncontrasted exam. No hydrocephalus. No sinus opacification. IMPRESSION: 1.No hemorrhage 2.Atrophy with chronic microvascular ischemic changes This exam was performed using automated exposure control, adjustment of mA or kV according to patient size, and/or use of iterative reconstruction technique. Electronically signed by Arnie Lind 03/08/2019 9:27 AM
--- NOTE | 2019-03-08 09:30 | Diag Imaging Result Doc PS360 ---
EXAM: CHEST-1 VIEW HISTORY: altered mental status TECHNIQUE: Chest single view COMPARISON: None. FINDINGS: The lungs are well expanded. The heart is not enlarged. The vessels are not distended. There are no infiltrates. No effusion identified. IMPRESSION: Negative exam. Electronically signed by Arnie Lind 03/08/2019 9:27 AM
[2019-03-08 09:36] LABS: BLOOD TYPE ARTERIAL; HCO3-(ACT) 19.1 mmoll (20.0-26.0); PCO2(98.6) 24 mmHg (35-45); PO2(98.6) 55 mmHg (60-100); SAMPLE BLOOD; pH(98.6) 7.42 (7.35-7.45)
[2019-03-08 09:37] LABS: ALLEN TEST YES; BE -7.3 mmoll (-3.0-3.0); METHB 0.9 % (0.0-1.5); O2(CT) 14.3 mL/dL (15.0-23.0); SAO2 92.2 % (95.0-100.0); THB 11.3 g/dL (11.5-17.4)
[2019-03-08 09:38] LABS: O2HB 89.7 % (95.0-99.0)
[2019-03-08 10:13] LABS: BASO# 0.02 X1000 (0.0-0.2); BASO% 0.2 % (0.0-0.8); EOS# 0.05 X1000 (0.0-0.7); EOS% 0.5 % (0.0-10.0); HEMATOCRIT 37.2 % (37.0-47.0); HEMOGLOBIN 12.5 g/dL (12.0-16.0); IMM GRAN# 0.02 X1000 (0.0-0.04); IMM GRAN% 0.2 % (0.0-0.5); LYMPH# 1.11 X1000 (1.2-3.4); LYMPH% 11.3 % (20.5-51.1); MCH 32.5 PG (27-31); MCHC 33.6 g/dL (33-37); MCV 96.6 FL (81-99); MONO# 1.49 X1000 (0.11-0.59); MONO% 15.2 % (1.7-9.3); MPV 10.5 FL (7.4-10.4); NEUT% 72.6 % (42.2-75.2); PLT 124 X1000 (130-400); RBC 3.85 XMIL (4.2-5.4); RDW 18.7 % (11.5-14.5); WBC 9.79 X1000 (4.8-10.8)
[2019-03-08 10:41] LABS: ALB/GLOB RATIO 0.5; CREATININE 2.5 mg/dL (0.5-0.9); POTASSIUM 5.5 mmol/L (3.5-5.1); TOTAL BILIRUBIN 2.45 mg/dL (0.20-1.00); TOTAL PROTEIN 6.4 g/dL (6.3-8.3)
[2019-03-08 11:31] LABS: URINE SOURCE CATH
[2019-03-08 11:43] LABS: BILIRUBIN URINE NEGATIVE (NEGATIVE); BLOOD URINE NEGATIVE (NEGATIVE); COLOR YELLOW; GLUCOSE URINE NEGATIVE (NEGATIVE); KETONE URINE NEGATIVE (NEGATIVE); LEUKOCYTES URINE TRACE (NEGATIVE); NITRITE URINE NEGATIVE (NEGATIVE); PH URINE 5.5; PROTEIN URINE TRACE mg/dL (NEGATIVE); SP GRAVITY URINE 1.017; TURBIDITY URINE HAZY (CLEAR); UROBILINOGEN URINE NORMAL (NORMAL)
[2019-03-08 11:45] LABS: UR EPITHELIAL CELLS <10 /HPF (<10); URINE BACTERIA NEGATIVE /HPF; URINE RBC <10 /HPF (<10); URINE WBC <10 /HPF (<10)
[2019-03-08] MEDS ORDERED: ROCEPHIN 1 GM in NS 50 ML IV ONE ×2 (11:58→13:08)
[2019-03-08] MEDS ORDERED: NS 1,000 ML IV ONE (11:58)
[2019-03-08] MEDS ORDERED: LACTULOSE PO ONE (13:03)
--- NOTE | 2019-03-08 13:06 | EKG Report ---
Test Performed on : 03/08/2019 09:46:03 AM Test Reason : ams Blood Pressure : / mmHG Vent. Rate : 091 BPM Atrial Rate : 091 BPM P-R Int : 124 ms QRS Dur : 064 ms QT Int : 368 ms P-R-T Axes : 079 029 052 degrees QTc Int : 452 ms Normal sinus rhythm. Septal infarct , age undetermined Abnormal ECG No previous ECGs available Unconfirmed Result
[2019-03-08] MEDS ORDERED: KAYEXALATE PO ONE (13:08)
--- NOTE | 2019-03-08 14:15 | Diag Imaging Result Doc PS360 ---
EXAM: CHEST/ABD TUBE PLACEMENT HISTORY: NG tube placement TECHNIQUE: Chest abdomen single view COMPARISON: Chest 9:09 AM FINDINGS: Interval placement of a nasogastric tube. This overlies the esophagus and stomach and appears to be in good position. No other interval change. Electronically signed by Arnie Lind 03/08/2019 2:13 PM
[2019-03-08] MEDS: SODIUM CHLORIDE 0.9% INJ SCH (16:23)
[2019-03-08] MEDS: NS 1,000 ML IV SCH (16:23)
[2019-03-08] MEDS: PROTONIX IV SCH (16:23)
[2019-03-08] MEDS: LACTULOSE PO SCH ×3 (18:33→23:45)
--- NOTE | 2019-03-08 18:58 | HISTORY AND PHYSICAL ---
CHIEF COMPLAINT: Altered mental status. HISTORY OF PRESENT ILLNESS: Ms. Fernandez is a 73-year-old, white female, patient of Dr. Ruben Goss, recently discharged from hospital when patient was admitted with hepatic encephalopathy. The patient does have multiple medical problems, including end-stage cirrhosis of the liver, severe ascites. The patient had a PleurX catheter in place, which was removed ultimately because the patient cut it. History of multiple hospitalizations for hepatic encephalopathy, hypertension, history of IgA nephropathy, fibromyalgia, cholecystectomy. The patient had back surgery, 2 surgeries, and hysterectomy is in the past. The patient was admitted to [facility] 2 days ago. The patient's clinical condition started deteriorating. Yesterday, the patient was more drowsy and sleepy, hard to arouse. Her blood pressure was low-normal. EMS was called and patient was brought to the emergency room. In the emergency room, her ammonia level was high and the patient was admitted for further care. The patient was not able to give any history. History taken from ER record and a family member. Her oral intake was poor. No high- grade fever or chills. No unusual cough or expectoration. No diarrhea, blood or mucus in the stool. No history of chest pain or palpitations. No further history available at this time. ALLERGIES: Morphine, buprenorphine, codeine. FAMILY HISTORY: Significant for father with heart disease. SOCIAL HISTORY: Single. Lives in the retirement. Needs assistance in activities of daily living. Denied alcohol and substance abuse. PAST MEDICAL HISTORY: End-stage cirrhosis of the liver, multiple hospitalizations for hepatic encephalopathy, history of hypertension, history of IgA nephropathy, fibromyalgia. PAST SURGICAL HISTORY: PleurX catheter placement, but requiring removal; cholecystectomy, hysterectomy, back surgery, 2 shoulder surgeries. PHYSICAL EXAMINATION: GENERAL: Elderly, white female patient, lying in the bed, poorly responsive. VITAL SIGNS: Her initial blood pressure was low, but then it came up to 129/61. Pulse 94, respiration 21, temperature 97.7 degrees. SKIN: The patient does have some jaundice. HEENT: Head atraumatic, normocephalic. Talmage conjunctivae. Yellow sclerae. Extraocular muscle movement. The patient was uncooperative. Ears and nose benign. NECK: Supple. No JVD, thyromegaly, or lymphadenopathy. CHEST: Bibasilar crepitation. No rales. CARDIOVASCULAR: S1 and S2 heard. No gallop or thrill. ABDOMEN: Soft, globular. Bowel sounds present. EXTREMITIES: No cyanosis, clubbing. No acute DVT. CENTRAL NERVOUS SYSTEM: Patient is drowsy, but arousable. Uncooperative for detailed neurologic examination. LABORATORY DATA: Reveals sodium of 129, potassium 5.5, CO2 of 12, BUN 57, creatinine 2.5. Ammonia level was 203. Total bilirubin 2.45. Urinalysis result reviewed. Blood gas, pH 7.42, pCO2 was 24, PO2 was 55. CBC, WBC count 9.79, hemoglobin 12.5, hematocrit 37.2, platelet count 124,000. ASSESSMENT: Patient's problems include: 1. Altered mental status with elevated ammonia level. The patient does have chronic liver failure, consideration. 2. Hepatitic encephalopathy. 3. Chronic liver failure. 4. Portal hypertension. 5. Low back pain. 6. Thrombocytopenia. 7. Hyperkalemia. 8. Hyponatremia. PLAN: Admit patient to ICU, put NG tube, and start lactulose. Supportive care. Gastroenterology consult. Overall plan and prognosis discussed with her daughter. She understood and agreed. According to daughter, the patient wants to be DNR 1. So, I asked the family, and I am going to make her DNR 1. Overall prognosis, fair to guarded. Family is aware of the prognosis. cc: MD Ruben Santillan MD
[2019-03-09] MEDS: LACTULOSE PO SCH ×5 (03:17→16:13)
[2019-03-09 04:31] LABS: BASO# 0.01 X1000 (0.0-0.2); BASO% 0.1 % (0.0-0.8); EOS# 0.05 X1000 (0.0-0.7); EOS% 0.5 % (0.0-10.0); HEMOGLOBIN 11.4 g/dL (12.0-16.0); IMM GRAN# 0.03 X1000 (0.0-0.04); IMM GRAN% 0.3 % (0.0-0.5); LYMPH% 11.7 % (20.5-51.1); MCH 31.9 PG (27-31); MCHC 34.5 g/dL (33-37); MCV 92.4 FL (81-99); MONO% 15.6 % (1.7-9.3); MPV 10.4 FL (7.4-10.4); NEUT# 7.35 X1000 (1.4-6.5); NEUT% 71.8 % (42.2-75.2); PLT 156 X1000 (130-400); RBC 3.57 XMIL (4.2-5.4); RDW 18.2 % (11.5-14.5); WBC 10.24 X1000 (4.8-10.8)
[2019-03-09 04:45] LABS: ALLEN TEST YES; BE -9.2 mmoll (-3.0-3.0); BLOOD TYPE ARTERIAL; HCO3-(ACT) 17.7 mmoll (20.0-26.0); METHB 2.7 % (0.0-1.5); O2(CT) 13.9 mL/dL (15.0-23.0); O2HB 95.2 % (95.0-99.0); PCO2(98.6) 22 mmHg (35-45); PO2(98.6) 156 mmHg (60-100); SAMPLE BLOOD; SAO2 99.9 % (95.0-100.0); THB 10.1 g/dL (11.5-17.4); pH(98.6) 7.41 (7.35-7.45)
[2019-03-09 04:46] LABS: MODALITY CANNULA
[2019-03-09 04:55] LABS: ALB/GLOB RATIO 0.6; ALBUMIN 2.4 g/dL (3.5-5.0); CALCIUM 8.6 mg/dL (8.8-10.2); CREATININE 1.8 mg/dL (0.5-0.9); PHOSPHORUS 5.5 mg/dL (2.7-4.5); POTASSIUM 3.9 mmol/L (3.5-5.1); TOTAL BILIRUBIN 2.56 mg/dL (0.20-1.00); TOTAL PROTEIN 6.1 g/dL (6.3-8.3)
[2019-03-09 07:51] LABS: INR 1.87; PROTIME 21.9 Seconds (11.0-16.0)
[2019-03-09] MEDS ORDERED: VANCOMYCIN IV PER PHARMACY MISC SCH (09:15)
--- NOTE | 2019-03-09 11:50 | GASTROENTEROLOGY CONSULTATION ---
DATE: 03/09/2019 REASON FOR CONSULTATION: Hepatic encephalopathy. PRIMARY SIEBEL ARCHITECT: Dr. Tillman HISTORY OF PRESENT ILLNESS: Ms. Aletha Fernandez is a 73-year-old woman with past medical history of decompensated JOE cirrhosis complicated by ascites, secondary peritonitis, hepatic encephalopathy, hyponatremia, recent intra-abdominal hematoma after PleurX drain placement in January, who represents with altered mental status. The patient was recently admitted to [facility] where she was noticed to have worsening lethargy and somnolence. EMS was called. She was found to have elevated ammonia of 203 in the ED. NG tube was placed and lactulose was administered. This morning the patient is more awake and responsive. She had a non-bloody bowel movement this morning. She reports some abdominal discomfort. No nausea, vomiting, chest pain, or shortness of breath, no edema. Of note, patient was seen in the emergency room on 03/04/2019 after cutting her PleurX drain tubing because it was leaking. The patient was supposed to have the drain pulled by surgery as an outpatient; it is unclear when and if that was done. REVIEW OF SYSTEMS: Limited given altered mental status. PAST MEDICAL HISTORY: Includes JOE cirrhosis, ascites, history of hepatic encephalopathy, IgA nephropathy, fibromyalgia, secondary peritonitis. PAST SURGICAL HISTORY: Cholecystectomy, back surgery, shoulder surgery x2, hysterectomy, Pleurx catheter placement. FAMILY HISTORY: Unable to obtain. SOCIAL HISTORY: She is a former smoker. No alcohol or drug use. ALLERGIES: Include codeine, morphine, Buprenex, hydrocodone, Cipro, Flagyl, propoxyphene, and Klonopin. MEDICATIONS: Medications have not been reconciled. Her medications that she was on when she was discharged on 02/25 included Keflex, Benazepril, Protonix, Paxil, lactulose. PHYSICAL EXAMINATION: Vital Signs: Temperature is 97.5 degrees, heart rate is 106, respiratory rate 18, blood pressure 139/59, O2 saturation 100% on room air. General: The patient is chronically ill appearing woman in no acute distress. She is sleepy but arousable, mildly confused. HEENT: Sclerae anicteric. Moist mucous membranes. NG tube in place. Neck: Supple. No JVD or lymphadenopathy. Cardiac: Tachycardic, regular no murmurs. Lungs: Clear to auscultation bilaterally. Abdomen: Obese with right upper quadrant PleurX catheter site with purulent material at the at the tract site and significant induration,warm to palpation concerning for either hematoma or abscess. There was some mild ascites. Nontender. Extremities: No clubbing, cyanosis, or edema. Extremities with bruising in the along her upper extremities bilaterally. Neuro: Difficult to assess asterixis on neuro exam given that she follows minimal commands. She is moving all extremities symmetrically. Cranial nerves II-XII grossly intact. LABORATORY DATA: White count of 10.2, hemoglobin of 11.4, platelets of 156,000. INR of 1.87, pH of 7.41, PO2 of 22 on ABG, PO2 of 156. Sodium of 138 from 129 yesterday, potassium of 3.9 from 5.5 yesterday, chloride of 109, bicarb 14, BUN of 52, creatinine of 1.8, glucose of 90, total bilirubin of 2.56, AST of 74, ALT of 35, alkaline phosphatase of 180, ammonia 150, total protein 6.1, albumin 2.4, lipase of 158, lactate of 1.7. UA shows trace protein and leukocytes. IMAGING: Chest x-ray shows negative exam. Head CT shows no acute intracranial pathology. ASSESSMENT AND PLAN: 1. Ms. Aletha Fernandez is a 73-year-old woman with decompensated JOE cirrhosis complicated by ascites and hepatic encephalopathy who presents from longterm with worsening mental status concerning for hepatic encephalopathy. She has blood cultures 1/2 showing gram-positive cocci. Urine culture is pending. Her abdomen is notable for induration and purulent material coming from her PleurX drain tract site. She was seen in the ER on 03/04 after cutting the tube on her own. This drain does not appear to be in place and it has presumably been pulled out as an outpatient by surgery. However, given her induration and warmth at the site of that tract, there is some concern that she may have infection of the abdominal wall or abscess versus infected hematoma that she had previously. She is currently on antibiotics with ceftriaxone and vancomycin. Recommend broadening her to cover anaerobes and consider stopping ceftriaxone. Continue IV fluids given her hypovolemic state and lactulose p.o. since she is more awake. The NG tube has been pulled. We also ordered a CT of the abdomen, pelvis without contrast to evaluate the abdominal wall and PleurX catheter site. For her hepatic encephalopathy, she is on the lactulose. I would not recommend trending her ammonia. We will follow clinically. Titrate to have 2 to 3 bowel movements daily. She appears to have also acute on chronic kidney injury. We are holding diuretics at this time as the patient has not been on diuretics recently. 2. For probable abdominal wall infection. Antibiotics as discussed. Consider ID consultation to tailor antibiotics and for a duration treatment. 3. Of note the patient has 2 medical records in the system and prior admissions are documented under the same name under a different medical record. # Hepatic encephalopathy # JOE cirrhosis # Ascites # Abdominal wall infection # Bacteremia # Acute on chronic kidney disease # Hypovolemia Thank you for this consult. Yousef to resume care tomorrow. Please call with any questions or concerns. cc: Ruben Goss MD MTDD
[2019-03-09] MEDS ORDERED: VANCOMYCIN 1.6 GM in NS 250 ML IV ONE (12:00)
--- NOTE | 2019-03-09 13:07 | PROGRESS NOTE ---
DATE: 03/09/2019 SUBJECTIVE: Ms. Fernandez is doing fair. The patient is more alert and awake this morning. She did have a large bowel movement. The patient does have confusion and disorientation. We had a hard time getting her IV. No nausea or vomiting. Complaining of vague abdominal pain. No typical chest pain. No diarrhea, blood, or mucus in the stool. Appreciate GI help managing this patient. No bleeding per rectum. GI consult reviewed. OBJECTIVE: Vital Signs: Blood pressure 139/59, pulse 106, respirations 18, temperature 97 degrees. Neck: Supple. No JVD. Lungs: Bibasilar crepitations. Heart: S1 and S2 heard. Abdomen: Soft, scaphoid. Bowel sounds present. Vague tenderness in the right upper quadrant. Extremities: No cyanosis, clubbing. No acute DVT. DROP WIRER: Alert, awake. Able to move all 4 limbs. Laboratory Data: Done today, WBC count 10.24, hemoglobin 11.4, hematocrit 33, platelets 156,000. PT/INR 1.87. Blood gas results reviewed. PH 7.41, pCO2 of 22, PO2 of 156. Electrolytes: Her BUN was 52, creatinine 1.8. Ammonia level was 150. CONSIDERATION: 1. Herpetic encephalopathy. 2. Cirrhosis of the liver. 3. Chronic liver failure. One of the blood cultures was positive. We started patient on vancomycin. 4. Acute kidney injury. PLAN: Patient's son and family member were present. Discussed overall poor prognosis and they are in agreement and understood. As per family's request, I am going to make her Do Not Resuscitate. cc: MD Ruben Santillan MD
--- NOTE | 2019-03-09 14:07 | Diag Imaging Result Doc PS360 ---
CT ABDOMEN/PELVIS W/O CONTRAST - 03/09/2019 INDICATION: looking for abd hematoma or abcess COMPARISON: The patient has prior exams, however for some reason was given a new medical record number on this hospitalization. Therefore this CT cannot be compared with prior exams until addressed by the hospital staff. FINDINGS: There is advanced hepatic cirrhosis. There is a small to moderate amount of ascites. There is severe constipation throughout the colon. No bowel obstruction. No peritoneal free air. Rodríguez catheter in the urinary bladder. There are moderate degenerative changes of the spine. No acute or suspicious bony lesion. IMPRESSION: Advanced cirrhosis. Small to moderate ascites. Severe constipation. This exam was performed using automated exposure control, adjustment of mA or kV according to patient size, and/or use of iterative reconstruction technique Electronically signed by James Hightower 03/09/2019 2:05 PM
[2019-03-09] MEDS ORDERED: NS 250 ML ONE (14:25)
[2019-03-09] MEDS: ROCEPHIN 1 GM in NS 50 ML IV SCH (15:42)
[2019-03-09] MEDS: SODIUM CHLORIDE 0.9% INJ SCH (15:43)
[2019-03-09] MEDS: PROTONIX IV SCH (15:43)
[2019-03-09] MEDS: NS 1,000 ML IV SCH (15:43)
[2019-03-10] MEDS: ATIVAN PO PRN (08:32)
[2019-03-10] MEDS: LACTULOSE PO SCH ×3 (08:33→17:32)
--- NOTE | 2019-03-10 08:42 | PROGRESS NOTE ---
DATE: 03/10/2019 Afebrile, heart rate 95, respirations 18, blood pressure 110/62, and O2 saturation on room air 100%. The patient was admitted with confusion and hepatic encephalopathy. She was placed on vancomycin and Rocephin for possible peritonitis. Apparently, she had cut her paracentesis catheter and this was removed. She was admitted by Dr. Green over the weekend. She was made a level 1 DNR after discussion with the daughter. Initial ammonia level was 203, and this morning is 150. She continues to be somewhat confused, but is fairly stable. She is transferred to a medical bed on the floor. Ammonia will be rechecked tomorrow morning. Chest is clear. Abdomen is mildly distended, but soft. GI consult was obtained. cc: Ruben Goss MD
[2019-03-10] MEDS: ROCEPHIN 1 GM in NS 50 ML IV SCH (13:47)
--- NOTE | 2019-03-10 13:57 | GASTROENTEROLOGY PROGRESS NOTE ---
DATE: 03/10/2019 SUBJECTIVE: The patient was resting but aroused with stimulus. She did know my name. She was fairly oriented. There were some things she said that did not make sense. She was asking for some milk. OBJECTIVE: Vital Signs: Temperature 97.3 degrees, pulse 89, respirations 22, blood pressure 129/68. Generally: Patient was resting but aroused with stimulus. She was somewhat oriented with some confusion noted. Abdomen: With ascites, redness near the abdomen. LABORATORY: Hematology: WBC 10.24 hemoglobin 11.4, hematocrit 33.0, MCV 92.4, platelets 156,000. Coagulation: Pro time 21.9. INR 1.87. Chemistry: Sodium 138, potassium 3.9, chloride 109, CO2 14, BUN 52, creatinine 1.8. Calcium 8.6, phosphorus 5.5, magnesium 2.0, total bilirubin 2.56. AST 74, ALT 35, alkaline phosphatase 180. Ammonia 150, amylase 112, lipase 158. ASSESSMENT AND PLAN: 1. Hepatic encephalopathy. Seems to be improving. 2. Cirrhosis of the liver. The patient had a laparoscopic peritoneal drain placed when she was in the hospital in January. Apparently the patient cut the drain so I believe the drain was removed. She has some redness at the abdomen and around the drain site. She is on antibiotics. PLAN: Continue to monitor. Continue antibiotics. Continue lactulose. Further plans will be made according to her progress. I believe her daughter has decided to make her a Do Not Resuscitate. Again, we will continue to follow and further plans will be made as needed. I have discussed this case with Dr. Tillman. Dictated by JAMILA Subramanian for Bradley Tillman MD cc: JAMILA Parrish MD Robert Allen, MD [facility]ENTER[facility]
[2019-03-10] MEDS: NS 1,000 ML IV SCH (14:47)
[2019-03-10] MEDS: PROTONIX IV SCH (14:47)
[2019-03-10] MEDS: SODIUM CHLORIDE 0.9% INJ SCH (14:47)
--- NOTE | 2019-03-11 08:22 | PROGRESS NOTE ---
DATE: 03/11/2019 VITAL SIGNS: Temperature 97.9 degrees, heart rate 70, respirations 14, blood pressure 105/45, O2 saturation on room air of 95%. The patient continues to be confused. Ammonia level is 153. She is taking liquids fairly well. Abdomen is less swollen and less erythematous. PLAN: Increase lactulose. Ammonia will be rechecked tomorrow a.m. Dr. Mccoy recommended not to be concerned about her ammonia level. It seems, however, that the patient continues to be very confused as long ammonia level is above 100. Social service has been consulted to assist possible placement in an inpatient hospice facility. cc: Ruben Goss MD
[2019-03-11] MEDS: ATIVAN PO PRN (08:44)
[2019-03-11] MEDS: LACTULOSE PO SCH ×4 (08:44→21:29)
[2019-03-11] MEDS: ROCEPHIN 1 GM in NS 50 ML IV SCH (13:40)
--- NOTE | 2019-03-11 14:12 | GASTROENTEROLOGY PROGRESS NOTE ---
DATE: 03/11/2019 SUBJECTIVE: Patient was asleep at the time of my evaluation, she did arouse with stimulus. She knew who I was. She is tolerating some liquids. I did talk with her daughter. Her daughter was coming into the hospital bringing her in a smoothie as I was leaving the hospital. We had discussed plan. They are working on either inpatient hospice or possible outpatient hospice from my understanding. OBJECTIVE: Vital Signs: Temperature 97.4 degrees, pulse 95, blood pressure 103/52. General: Patient was resting eyes closed in no acute distress but did arouse and she knew my name. LABORATORY: Hematology. WBC 10.24, hemoglobin 11.4, hematocrit 33.0, MCV 92.4, platelet 156,000. Chemistry. Sodium 138, potassium 3.9, chloride 109, CO2 14, BUN 52, creatinine 1.8, glucose 90. ASSESSMENT AND PLAN: 1. Hepatic encephalopathy. 2. End-stage cirrhosis of the liver. 3. Abdominal wall infection. 4. Acute/chronic kidney disease. Continue current management. Continue supportive care. I believe they are trying to discuss whether patient would benefit from inpatient hospice versus outpatient hospice. We will continue to follow. Further plans to be made according to her progress. I have discussed this case with Dr. Tillman. Dictated by JAMILA Subramanian for Bradley Tillman MD cc: JAMILA Parrish MD Robert Allen, MD
[2019-03-11] MEDS: PROTONIX IV SCH (17:01)
[2019-03-11] MEDS: SODIUM CHLORIDE 0.9% INJ SCH (17:01)
[2019-03-11] MEDS: NS 1,000 ML IV SCH (17:02)
[2019-03-12] MEDS ORDERED: VANCOMYCIN 1.3 GM in NS 250 ML IV SCH ×2
[2019-03-12] MEDS: LACTULOSE PO SCH ×4 (09:06→21:53)
--- NOTE | 2019-03-12 09:42 | PROGRESS NOTE ---
DATE: 03/12/2019 OBJECTIVE: Vital signs: Temperature 97.4 degrees, heart rate 87, respiration 18, blood pressure 93/56, O2 saturation on room air 100%. General: The patient is alert and oriented. Her ammonia has decreased to 61. Chest: Clear. Abdomen: Fairly soft, but distended. There is moderate ascites. ASSESSMENT: Social Service is working on disposition. It would be appropriate for her to be in an inpatient hospice facility, but the patient is anxious to go home. There is not adequate care for her at home since her daughter works regularly. PLAN: Disposition soon. cc: Ruben Goss MD
--- NOTE | 2019-03-12 15:13 | GASTROENTEROLOGY PROGRESS NOTE ---
DATE: 03/12/2019 SUBJECTIVE: Patient was resting in the bed at the time of my evaluation. She was awake when I entered the room. She did know my name. No family was available at the bedside. I did talk to her daughter yesterday. OBJECTIVE: Vital Signs: Temperature 97.4 degrees, pulse 80, respirations 18, blood pressure 116/57. General: The patient was awake. She was more alert today. No acute distress noted. Abdomen: Soft. Some redness, otherwise nontender. LABORATORY: Hematology: WBC 10.24, hemoglobin 11.4, hematocrit 33.0, MCV 92.4, platelets 156. Chemistry: Sodium 138, potassium 3.9, chloride 109, CO2 14. BUN 52, creatinine 1.8, total bilirubin 2.56. AST 74, ALT 35, alkaline phosphatase 180. Ammonia 61. ASSESSMENT AND PLAN: 1. End-stage liver disease. 2. Cirrhosis of the liver. 3. Abdominal wall infection on antibiotics. 4. Acute/chronic kidney disease. 5. Continue current medications. I believe they are working on possible inpatient hospice verses outpatient. Will continue to follow during her hospital course and further plans to be made according to her progress. I have discussed this case with Dr. Tillman. Dictated by JAMILA Subramanian for Bradley Tillman MD cc: JAMILA Parrish MD Robert Allen, MD
[2019-03-12] MEDS: NS 1,000 ML IV SCH (17:29)
[2019-03-13] MEDS ORDERED: PROTONIX PO SCH (07:00)
--- NOTE | 2019-03-13 08:22 | PROGRESS NOTE ---
DATE: 03/13/2019 Vital signs stable with temperature 98.2 degrees, heart rate 78, respirations 16, blood pressure 112/44, O2 saturation 100% on room air. Patient is somnolent and a little difficult to arouse. Ammonia level was surprisingly elevated at 318. Most likely, either the ammonia level yesterday at 61 or this value is not correct. It will be rechecked this morning at 11. PICC line was discontinued. IV medicines are discontinued. Plans are tentative for transfer back to [facility] facility in [place] today. If her ammonia is less than 100, she will be transferred back. Otherwise, discussion will be made with GI regarding any additional treatment. Hopefully, disposition can be made today or tomorrow. cc: Ruben Goss MD
[2019-03-13] MEDS: LACTULOSE PO SCH ×3 (08:35→13:49)
--- NOTE | 2019-03-13 13:00 | Diag Imaging Result Doc PS360 ---
EXAM: CHEST/ABD TUBE PLACEMENT 03/13/2019 HISTORY: ng tube placement TECHNIQUE: Portable at 1241 COMMENT: There is an NG tube in the fundus of the stomach. IMPRESSION: NG tube in the stomach. Electronically signed by Eddy Cesar 03/13/2019 12:57 PM
[2019-03-13] MEDS ORDERED: ROXANOL CONC. LIQUID PO PRN (13:39)
[2019-03-13] MEDS: NS 1,000 ML IV SCH (13:49)
[2019-03-13] MEDS ORDERED: STERILE WATER INJ. INJ ONE (14:04)
[2019-03-13] MEDS ORDERED: GEODON IM ONE (14:04)
[2019-03-13] MEDS ORDERED: STERILE WATER INJ. INJ PRN (14:50)
[2019-03-13] MEDS ORDERED: GEODON IM PRN (14:50)
[2019-03-13] MEDS ORDERED: TYLENOL PR PRN (14:50)
[2019-03-13] MEDS: ATROPINE 1 % OPHTH SOLN SL PRN (16:12)
[2019-03-13] MEDS: OXYCODONE PO PRN ×3 (16:13→22:40)
--- NOTE | 2019-03-13 17:17 | PROGRESS NOTE ---
DATE: 03/13/2019 Ms. Fernandez has continued to deteriorate through the day with less responsiveness. She only has a shallow respiration at this time. Chest remains clear. Blood pressure is 122/53. O2 saturation on room air is 95%. Ammonia level at 11. Had increased further to 390. An NG was placed this morning to give lactulose. Her daughter decided she did not want the NG tube and since she was DNR, did not want other measures except for comfort care. Decision was made and hospice asked to help. Palliative care has been done and will be for her remainder of time. She is not expected to survive through the night. cc: Ruben Goss MD
[2019-03-14] MEDS: OXYCODONE PO PRN ×3 (01:44→10:40)
[2019-03-14] MEDS: ATIVAN IM PRN ×2 (08:19→21:42)
--- NOTE | 2019-03-14 08:35 | PROGRESS NOTE ---
DATE: 03/14/2019 VITAL SIGNS: Temperature 97.4 degrees axillary, heart rate 85, respirations 18, blood pressure 130/53, O2 saturation on room air 94%. SUBJECTIVE: The patient is unresponsive. Eyes are fixed at an upper gaze. There is no response to conversation or gently probing her shoulder. Chest is fairly clear. She is moaning at times. She was given Geodon 10 mg IM 5 minutes before exam. PLAN: Brief discussion was made with the nurse. Ativan is added for agitation unresponsive to Geodon. The patient appears terminal at this point. She is level 1 DNR in regard to resuscitation. cc: Ruben Goss MD
[2019-03-14] MEDS: ATROPINE 1 % OPHTH SOLN SL PRN (21:43)
[2019-03-15] MEDS: ATIVAN IM PRN ×2 (08:05→16:12)
--- NOTE | 2019-03-15 12:47 | PROGRESS NOTE ---
DATE: 03/15/2019 VITAL SIGNS: Temperature 96.6 degrees, heart rate 105, respirations 16, blood pressure 117/53, O2 saturation 94% on room air. SUBJECTIVE: The patient is resting and is calm. There have been brief episodes of agitation responding to Ativan. Atropine has been given for secretions. Hospice continues to provide palliative care. The patient is terminal. Expectation is that respirations would cease within the next couple of days. cc: Ruben Goss MD
[2019-03-15] MEDS: DEMEROL IM PRN (19:09)
[2019-03-16] MEDS: DEMEROL IM PRN ×5 (01:13→23:43)
--- NOTE | 2019-03-16 10:48 | PROGRESS NOTE ---
DATE: 03/16/2019 VITAL SIGNS: Temperature 97.1 degrees, heart rate 85, respirations 19, blood pressure 99/59, O2 saturation on room air 93%. SUBJECTIVE: The patient has shallow respirations with some gurgling upper airway mucus. Abdomen is soft. She seems comfortable. IMPRESSION: Terminal liver failure and hepatic encephalopathy. PLAN: Continue comfort measures. cc: Ruben Goss MD
[2019-03-16] MEDS: ATIVAN IM PRN (12:52)
[2019-03-17] MEDS: DEMEROL IM PRN ×4 (05:16→20:47)
[2019-03-17 08:25] VITALS: BP 90/47
--- NOTE | 2019-03-17 08:27 | PROGRESS NOTE ---
DATE: 03/17/2019 The patient continues to be unresponsive. She has increased work of breathing and moans with inspiration. There also was increase in upper airway mucus. Lungs remain fairly clear except for decreased sounds at the bases. There is trace ankle edema. Urine output is decreasing. The family is aware of her terminal condition. PLAN: Continue comfort measures. She is Do Not Resuscitate level 1. cc: Ruben Goss MD
[2019-03-18] MEDS: DEMEROL IM PRN ×2 (01:02→11:00)
--- NOTE | 2019-03-18 08:16 | PROGRESS NOTE ---
DATE: 03/18/2019 The patient continues to have labored respiration with expiratory moan. He has not been responsive, but was a little more agitated over the night. Lungs have decreased breath sounds at the bases. O2 saturation on room air yesterday was 97%. Urine output has decreased. Plan to continue comfort measures. cc: Ruben Goss MD
[2019-03-18] MEDS ORDERED: DEMEROL IM PRN (11:03)
--- NOTE | 2019-03-18 14:28 | DISCHARGE SUMMARY ---
ADMISSION DATE: 03/08/2019 DISCHARGE DATE: 03/18/2019 FINAL DIAGNOSES: End-stage liver failure, hepatic encephalopathy, portal hypertension, thrombocytopenia, hyperkalemia, hyponatremia, chronic kidney disease stage 3. This is one of several recent [facility] admissions for this 73-year-old white female who came from rehab and was admitted by Dr. Geren, who was on-call. She had cut her paracentesis catheter, and developed cellulitis of the abdominal wall. She was treated with intravenous antibiotics. INITIAL LABORATORY: Hemoglobin 12.5, hematocrit 37.2, white blood count 9700, sodium 129, potassium 5.5, BUN 57, creatinine 2.5, total bilirubin 2.4, AST 77, alkaline phosphatase 178, ammonia 203, albumin 2.0, lipase 158. Plasma lactate 1.7. HOSPITAL COURSE: With lactulose, the lowest ammonia level was on 03/12/2019 at 61. This level may have been inaccurate. However, since the day before, it had been 153 and the day after was 318. Decision was made by family to make her DNR level 1. She became essentially unresponsive on 03/13 at which time ammonia was 390. Palliative care was initiated. She was given IM medications for both pain and agitation. She did not require oxygen. Oxygen was attempted on a couple of occasions, but the patient was agitated and would not keep it on. Yesterday, O2 saturation on room air was 97%. She had some occasional moaning, but no significant distress. She ceased breathing peacefully at 12:35 this afternoon. She was pronounced at 12:48. Organ donation is not indicated. cc: Ruben Goss MD
== END 2019-03-18 12:35 | disposition expired | DRG 442 ==
LOC: SUPCPDRO → EDBD → ED 08:37 → MERGE 13:29 → ICU 13:29 → 3N 03-10 10:36
PROVIDERS: ADMIT Family Medicine; ATTEND Family Medicine